=== PATIENT | male | born 1945 | race Hispanic/Latino ===

== ENCOUNTER 2018-07-03 11:14 | Inpatient (IN) | payer MEDICARE ==
[2018-07-03 11:16] VITALS: PULSE 96; BMI 24.5
[2018-07-03] MEDS ORDERED: ceFAZolin IV 1 gm in Dextrose 1 GM/50 ML BAG IV STA (12:12)
--- NOTE | 2018-07-03 12:27 | C.PDOC ---
History Of Present Illness 73-year-old male presents to the ED complaining of left-sided neck swelling that began 5 days ago. Patient states he was seen by PMD on Friday and prescribed antibiotics, with minimal improvement. The swollen area has progressively grown in size, is red, and began draining pus last night. Patient went back to his doctor today and was referred to Dr. Haque's office. Dr. Haque then tried to drain the area, but patient states he was referred to the ED due to severity of infection. He denies any fever, chills, or difficulty swallowing. Time Seen by Provider: 07/03/18 11:43 Chief Complaint (Nursing): Abnormal Skin Integrity History Per: Patient History/Exam Limitations: no limitations Onset/Duration Of Symptoms: Days Current Symptoms Are (Timing): Worse Quality Of Symptoms: Swollen, Draining Past Medical History Reviewed: Historical Data, Nursing Documentation, Vital Signs Vital Signs: Last Vital Signs Temp 98 F 07/03/18 14:06 Pulse 86 07/03/18 14:06 Resp 18 07/03/18 14:06 BP 126/73 07/03/18 14:06 Pulse Ox 98 07/03/18 14:06 - Medical History PMH: Arthritis, Atrial Fibrillation, Benign Prostatic Hyperplasia, Cardia Arrhythmia, CHF, HTN, Hypercholesterolemia, Hyperlipidemia Denies: Chronic Kidney Disease Surgical History: Coronary Stent, Endoscopy - [facility] Procedures EXCISION OF SCALP SKIN, EXTERNAL APPROACH, DIAGNOSTIC (11/13/15) EXCISION OF STOMACH, ENDO, DIAGN (06/03/16) ULTRASONOGRAPHY OF RIGHT AND LEFT HEART, TRANSESOPHAGEAL (01/20/17) Family History: States: Unknown Family Hx - Social History Hx Alcohol Use: No Hx Substance Use: No - Immunization History Hx Tetanus Toxoid Vaccination: No Hx Influenza Vaccination: Yes Hx Pneumococcal Vaccination: No Review Of Systems Except As Marked, All Systems Reviewed And Found Negative. Constitutional: Negative for: Fever, Chills ENT: Negative for: Throat Pain, Throat Swelling, Other (difficulty swallowing) Cardiovascular: Negative for: Chest Pain Respiratory: Negative for: Cough, Shortness of Breath Skin: Positive for: Other (red, swollen area to left side of neck, + draining pus) Neurological: Negative for: Weakness, Numbness, Headache Physical Exam - Physical Exam Appears: Non-toxic, No Acute Distress Skin: Warm, Dry Head: Atraumatic, Normacephalic Eye(s): bilateral: Normal Inspection Nose: Normal, No Flaring, No Discharge Oral Mucosa: Moist Tongue: No Normal Appearing, No Swelling Lips: Normal Appearing, No Swelling Teeth: Dentures Throat: Normal, No Erythema, No Exudate, No Drooling, No Mass Neck: Trachea Midline, Supple, Other (6 x 4 cm erythematous fluctuant mass with surrounding erythema to the left lateral neck, with some purulent drainage) Chest: Symmetrical Cardiovascular: Rhythm Regular, No Murmur Respiratory: Normal Breath Sounds, No Rales, No Rhonchi, No Wheezing Extremity: Bilateral: Atraumatic, Normal Color And Temperature, Normal ROM Pulses: Left Dorsalis Pedis: Normal, Right Dorsalis Pedis: Normal Neurological/Psych: Oriented x3, Normal Speech, Normal Cranial Nerves Gait: Steady ED Course And Treatment - Laboratory Results Result Diagrams: 07/03/18 12:41 07/03/18 12:41 Lab Interpretation: No Acute Changes O2 Sat by Pulse Oximetry: 98 (room air) Pulse Ox Interpretation: Normal Medical Decision Making Medical Decision Making: Impression: Abscess to left neck, draining 12:08pm Case discussed with Dr. Haque, who recommends labs, IV antibiotics, and admitting patient with ENT consult. He does not recommend CT at this time. Plan: --CMP --CBC --UA --Blood culture --Wound culture --1 gm IV Ancef Progress/Updates: 122 Spoke with hospitalist to admit patient for IV antibiotics. Disposition - Disposition Disposition: HOSPITALIZED Disposition Time: 13:23 Condition: STABLE - POA Present On Arrival: None - Clinical Impression Clinical Impression: Cellulitis and abscess of neck - PA / CADDY MASTER / Resident Statement MD/DO has reviewed & agrees with the documentation as recorded. - Scribe Statement The provider has reviewed the documentation as recorded by the Scribe (Tess Miguel) All medical record entries made by the Scribe were at my direction and personally dictated by me. I have reviewed the chart and agree that the record accurately reflects my personal performance of the history, physical exam, medical decision making, and the department course for this patient. I have also personally directed, reviewed, and agree with the discharge instructions and disposition. Decision To Admit - Pt Status Changed To: Hospital Disposition Of: Inpatient - Admit Certification Admit to Inpatient:: After my assessment, the patient will require hospitalization for at least two midnights. This is because of the severity of symptoms shown, intensity of services needed, and/or the medical risk in this patient being treated as an outpatient. - InPatient: Physician Admission Certification: I certify that this patient requires 2 or more midnights of care for the following reason:: Patient with progressively worsening neck abcess and cellulitis, failed outpatient antibotics. Patient will require IV antibiotics and also need drainage. ENT consult - . Bed Request Type: Regular Admitting Physician: Jonny Beyer Patient Diagnosis: Cellulitis and abscess of neck
[2018-07-03 12:51] LABS: BASO # 0.1 K/uL (0.0-0.2); BASO % 1.1 % (0.0-2.0); EOS # 0.2 K/uL (0.0-0.7); LYMPH # 0.9 K/uL (1.0-4.3); MEAN CORPUSCULAR HEMOGLOBIN 34.5 pg (27.0-31.0); MEAN CORPUSCULAR HGB CONC 33.9 g/dL (33.0-37.0); MEAN PLATELET VOLUME 8.9 fL (7.2-11.7); MONO # 0.4 K/uL (0.0-0.8); MONO % 8.5 % (0.0-10.0); NEUT # 3.6 K/uL (1.8-7.0); NEUT % 70.4 % (50.0-75.0); NRBC % 0.1 % (0.0-2.0); RBC 3.19 Mil/uL (4.40-5.90); RED CELL DISTRIBUTION WIDTH 14.3 % (11.5-14.5); WHITE BLOOD COUNT 5.1 K/uL (4.8-10.8)
[2018-07-03 12:52] LABS: MEAN CELL VOLUME 101.8 fL (80.0-94.0)
[2018-07-03 13:05] LABS: ALB/GLOB RATIO 1.1 (1.0-2.1); ALBUMIN 3.6 g/dL (3.5-5.0); CALCIUM 8.7 mg/dl (8.6-10.4)
[2018-07-03] MEDS ORDERED: ceFAZolin 1 gm in NS 1 GM/100 ML BAG IVPB ONE (13:11)
[2018-07-03 13:22] LABS: URINE BILIRUBIN NEGATIVE (NEGATIVE); URINE BLOOD NEGATIVE (NEGATIVE); URINE CLARITY Clear (Clear); URINE COLOR Yellow (YELLOW); URINE GLUCOSE (UA) NORMAL (Normal); URINE LEUKOCYTE ESTERASE NEG Leu/uL (Negative); URINE PROTEIN 2+ mg/dL (NEGATIVE); URINE UROBILINOGEN NORMAL mg/dL (0.2-1.0)
[2018-07-03] MEDS ORDERED: Potassium Chloride 20 mEq ER Tab PO STA (13:22)
[2018-07-03] MEDS ORDERED: Potassium Chloride 20 mEq ER Tab PO ONE (13:47)
--- NOTE | 2018-07-03 14:48 | CP.PCM.HP ---
History of Present Illness - History of Present Illness History of Present Illness: Patient seen and examined in Room 365B at approximately 14:30PM . Patient is a DNR/DNI status at this time. Patient does not have an official advanced directive. His emergency contact is his sister Heidi Morrison. She can be reached at [phone]. CC: Neck abscess HPI: 73 year old male with past medical history significant for atrial fibrillation, CAD s/p stent, HTN, HDL and thyroid disease presents with complaints of neck abscess. Patient states that his nephew's dog leaped upon him last Fri. At the time, patient did not realize that he had been scratched. Patient states that he then noticed a swelling on the left side of his neck five days ago. He states that he went to see his medical doctor the following day and was put on antibiotics. Patient is not entirely sure of the antibiotics ' name however so he suspects that it may have been ampicillin. Patient states that he was experiencing neck pain for two days afterwards. He also admits to some drainage of the affected area. Patient states that he was asked to continue the antibiotics course through today and then follow up with ENT. Patient states that he went to the ENT Dr. Haque today, who attempted to nahomi the affected area. Patient states that this was unsuccessful and was then asked to go to the emergency room. Currently, patient denies subjective fevers or chills, nausea, vomiting, diarrhea constipation, new onset dysphagia, or dyspnea at this time. 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 Caty Sainz Present on Admission - Present on Admission Any Indicators Present on Admission: No Review of Systems - Constitutional Constitutional: absent: Chills, Headache, Weight Loss, Weakness - EENT Eyes: absent: Blurred Vision, Pain Nose/Mouth/Throat: Nasal Congestion, Neck Mass (abscess). absent: Nasal Discharge, Sore Throat - Cardiovascular Cardiovascular: absent: Chest Pain, Chest Pain at Rest, Dyspnea - Respiratory Respiratory: absent: Cough, Dyspnea, Dyspnea on Exertion - Gastrointestinal Gastrointestinal: absent: Nausea, Vomiting - Musculoskeletal Musculoskeletal: absent: Back Pain - Integumentary Integumentary: Dry Skin, Swelling. absent: Skin Pain - Neurological Neurological: absent: Weakness - Psychiatric Psychiatric: absent: Anxiety - Endocrine Endocrine: absent: Fatigue, Heat Intolorance, Palpitations Past Patient History - Infectious Disease Hx of Infectious Diseases: None - Past Medical History & Family History Past Medical History?: Yes - Past Social History Smoking Status: Never Smoked Alcohol: Occasional Drugs: Denies Home Situation {Lives}: With Family (Sister) - CARDIAC Hx Atrial Fibrillation: Yes Hx Cardia Arrhythmia: Yes Hx Congestive Heart Failure: Yes Hx Hypercholesterolemia: Yes Hx Hypertension: Yes - NEUROLOGICAL Hx Neurological Disorder: No - HEENT Hx HEENT Problems: No (DYSPHAGIA) - RENAL Hx Chronic Kidney Disease: No - ENDOCRINE/METABOLIC Hx Endocrine Disorders: No - HEMATOLOGICAL/ONCOLOGICAL Hx Blood Transfusions: No Hx Cancer: Yes (parotid cancer,) - INTEGUMENTARY Hx Dermatological Problems: Yes Hx Basil Cell: Yes Hx Squamous Cell: Yes Other/Comment: hx skin cancer unsure what type , multiple scabs noted on scalp, scars noted l wrist ,Rhand. - MUSCULOSKELETAL/RHEUMATOLOGICAL Hx Arthritis: Yes - GASTROINTESTINAL Hx Gastrointestinal Disorders: Yes HX Swallowing Problems: Yes - GENITOURINARY/GYNECOLOGICAL Hx Genitourinary Disorders: Yes Hx Prostate Problems: Yes - PSYCHIATRIC Hx Substance Use: No - SURGICAL HISTORY Hx Coronary Stent: Yes - ANESTHESIA Hx Anesthesia: Yes Hx Anesthesia Reactions: No Meds Allergies/Adverse Reactions: Allergies Allergy/AdvReac Type Severity Reaction Status Date / Time No Known Allergies Allergy Verified 01/20/17 14:31 Physical Exam - Constitutional Appears: Non-toxic, No Acute Distress - Head Exam Head Exam: ATRAUMATIC, NORMAL INSPECTION, NORMOCEPHALIC - Eye Exam Eye Exam: EOMI, Normal appearance, PERRL Pupil Exam: NORMAL ACCOMODATION - ENT Exam ENT Exam: Mucous Membranes Moist - Neck Exam Neck exam: Positive for: Full Rom - Respiratory Exam Respiratory Exam: NORMAL BREATHING PATTERN. absent: Wheezes - Cardiovascular Exam Cardiovascular Exam: +S1, +S2 - GI/Abdominal Exam GI & Abdominal Exam: Normal Bowel Sounds, Soft. absent: Firm, Guarding, Tenderness - Extremities Exam Extremities exam: Positive for: full ROM, normal capillary refill, pedal pulses present. Negative for: calf tenderness, pedal edema, tenderness - Back Exam Back exam: FULL ROM - Neurological Exam Neurological exam: Alert, CN II-XII Intact, Oriented x3 - Psychiatric Exam Psychiatric exam: Normal Affect, Normal Mood - Skin Skin Exam: Dry, Intact, Warm - Expanded Skin Exam Expanded Type of lesion: Abscess Distribution of rash: Neck Description of Rash: Crusting, Erythematous, Indurated, Tenderness Results - Vital Signs Recent Vital Signs: Last Vital Signs Temp 98 F 07/03/18 14:06 Pulse 86 07/03/18 14:06 Resp 18 07/03/18 14:06 BP 126/73 07/03/18 14:06 Pulse Ox 98 07/03/18 14:06 - Labs Result Diagrams: 07/03/18 12:41 07/03/18 12:41 Labs: Laboratory Results - last 24 hr 07/03/18 07/03/18 07/03/18 12:41 12:41 13:11 WBC 5.1 RBC 3.19 L Hgb 11.0 L Hct 32.4 L MCV 101.8 H D MCH 34.5 H MCHC 33.9 RDW 14.3 Plt Count 153 MPV 8.9 Neut % (Auto) 70.4 Lymph % (Auto) 17.0 L Kerr % (Auto) 8.5 Eos % (Auto) 3.0 Baso % (Auto) 1.1 Neut # (Auto) 3.6 Lymph # (Auto) 0.9 L Kerr # (Auto) 0.4 Eos # (Auto) 0.2 Baso # (Auto) 0.1 Sodium 142 Potassium 3.4 L Chloride 100 Carbon Dioxide 31 H Anion Gap 15 BUN 25 H Creatinine 1.7 H Est GFR ( Amer) 48 Est GFR (Non-Af Amer) 40 Random Glucose 95 Calcium 8.7 Total Bilirubin 0.8 AST 61 H ALT 46 Alkaline Phosphatase 247 H D Total Protein 7.1 Albumin 3.6 Globulin 3.4 Albumin/Globulin Ratio 1.1 Urine Color Yellow Urine Clarity Clear Urine pH 6.0 Ur Specific [place] 1.014 Urine Protein 2+ H Urine Glucose (UA) Normal Urine Ketones Negative Urine Blood Negative Urine Nitrate Negative Urine Bilirubin Negative Urine Urobilinogen Normal Ur Leukocyte Esterase Neg Urine WBC (Auto) 1 Urine RBC (Auto) 1 Assessment & Plan (1) Cellulitis and abscess of neck Assessment and Plan: Given 1 mg Cefazolin in the ER. Started on Vanc 1g Q24 daily and Zosyn 2.25 g Q6 ALEXIS - (renally dosed)- Started 07/03 On Bacid Started 07/03 On N/S @ 50 mls/hr No leukocytois noted at the moment Failed outpatient PO therapy F/U Dr. Haque recommendations Status: Acute (2) Atrial fibrillation Assessment and Plan: Stable at this time. Well aware that patient has a cardiac history- although it is stable at this time and thus will admit to med-surg. Monitor. On Cardizem and Xarelto. Patient normally takes home dose of 20 mg Xarelto. This dosage was to 10 mg in light of pharmacologic reaction . Cardizem increases blood levels of Xarelto. Patient has been stable on this regiment and thus will continue at a decreased dose. Will need to follow up with ENT about holding Xarelto before any anticipated procedure. Status: Chronic (3) Coronary artery disease Assessment and Plan: Stable On Crestor 20 mg PO HS ASA 81 mg PO daily On Lopressor 50 mg PO BID Status: Chronic (4) RACHID (acute kidney injury) Assessment and Plan: Elevated Cr 1.7 up from baseline No other prior history- May be dehydrated. Start NS @ 75 mls/hr Will monitor Status: Acute (5) HTN (hypertension) Assessment and Plan: Stable at this time. On Lopressor 50 mg PO BID and Cardizem 360 mg PO daily Monitor Status: Chronic (6) Hyperlipidemia Assessment and Plan: On Crestor 20 mg PO HS and ASA 81 mg as stated above Monitor Status: Chronic (7) Thyroid disease Assessment and Plan: Not currently on any maintenance medications F/U TSH and Free T4 this time Monitor Status: Chronic (8) Prophylactic measure Assessment and Plan: SCDs On Xarelto- Will have to figure out when to hold prior to any anticipated procedures. F/.U with ENT. Status: Acute
[2018-07-03] MEDS ORDERED: Sodium Chloride 0.9% 1,000 ML IV SCH (15:00)
[2018-07-03] MEDS ORDERED: Vancomycin 1 gm/NS 200 ml 1 GM/200 ML BAG IVPB SCH (16:00)
[2018-07-03 16:09] VITALS: RESP 20
[2018-07-03] MEDS: Sodium Chloride 0.9% 1,000 ML IV SCH (17:14)
[2018-07-03] MEDS: Piperacill/Tazo 2.25gm in Dex 2.25 GM/50 ML BAG IVPB SCH (17:30)
[2018-07-03] MEDS: Lactobacillus Acidophilus 500 MU Cap PO SCH (18:10)
[2018-07-04] MEDS: Piperacill/Tazo 2.25gm in Dex 2.25 GM/50 ML BAG IVPB SCH ×3 (05:20→12:38)
[2018-07-04] MEDS: Sodium Chloride 0.9% 1,000 ML IV SCH ×3 (06:00→21:09)
--- NOTE | 2018-07-04 08:13 | CP.PCM.PN ---
Addendum entered and electronically signed by Sherita Sharma DO, DO 14:18: IV antibiotics changed to clindamycin 600mg IVPB q8h. CT soft tissue of neck canceled due to superficial nature of abscess. Original Note: <Sherita Sharma DO - Last Filed: 07/04/18 12:08> Subjective - Date & Time of Evaluation Date of Evaluation: 07/04/18 Time of Evaluation: 08:12 - Subjective Subjective: PGy3 Medicine progress note for Dr. Sainz's service Patient seen and examined. Patient with complaint of posterior nasal drip and congestion. Patient denies fever, chills, shortness of breath. Patient states he lives at home with his sister and denies needing much assistance at home. Objective - Vital Signs/Intake and Output Vital Signs (last 24 hours): Temp Pulse Resp BP Pulse Ox 97.7 F 53 L 20 140/78 95 07/04/18 05:30 07/04/18 05:30 07/04/18 05:30 07/04/18 05:30 07/04/18 05:30 Intake and Output: 07/04/18 07/04/18 06:59 18:59 Intake Total 775 Output Total 650 Balance 125 - Medications Medications: Current Medications Aspirin (Ecotrin) 81 mg PO DAILY ALEXIS Diltiazem HCl (Cardizem Cd) 360 mg PO DAILY ALEXIS Fluticasone Propionate (Flonase) 1 spr JOSE DAILY ALEXIS Piperacillin Sod/Tazobactam Sod (Zosyn 2.25 Gm Iv Premix) 2.25 gm in 50 mls @ 100 mls/hr IVPB Q6H ALEXIS PRN Reason: Protocol Last Admin: 07/04/18 05:20 Dose: 100 mls/hr Vancomycin/Sodium Chloride (Vancomycin 1 Gm/Ns 200 Ml) 1 gm in 200 mls @ 133.333 mls/hr IVPB Q24H ALEXIS PRN Reason: Protocol Stop: 07/08/18 16:01 Last Admin: 07/03/18 18:00 Dose: 133.333 mls/hr Sodium Chloride (Sodium Chloride 0.9%) 1,000 mls @ 75 mls/hr IV .[id number] [facility] Last Admin: 07/03/18 17:14 Dose: 75 mls/hr Lactobacillus Acidophilus (Bacid Acidophilus) 1 cap PO BID [facility] Last Admin: 07/03/18 18:10 Dose: 1 cap Metoprolol Tartrate (Lopressor) 50 mg PO BID [facility] Last Admin: 07/03/18 17:15 Dose: 50 mg Rivaroxaban (Xarelto) 10 mg PO DAILY [facility] Rosuvastatin Calcium (Crestor) 20 mg PO HS [facility] Last Admin: 07/03/18 21:09 Dose: 20 mg - Labs Labs: 07/03/18 12:41 07/03/18 12:41 - Constitutional Appears: Chronically Ill - Head Exam Additional comments: 10x6cm lipoma right posterior occiptal-parietal region 2 smaller lipomas measuring 2x1 cm in left parietal region - Eye Exam Eye Exam: EOMI - ENT Exam ENT Exam: Mucous Membranes Moist Additional comments: post nasal drip present - Neck Exam Additional comments: left sided 10 x 6 cm indurated and erythematous abscess with superficial skin crusting - Respiratory Exam Respiratory Exam: Clear to Ausculation Bilateral - Cardiovascular Exam Cardiovascular Exam: +S1, +S2 - GI/Abdominal Exam GI & Abdominal Exam: Soft, Normal Bowel Sounds. absent: Tenderness - Extremities Exam Extremities Exam: absent: Pedal Edema Additional comments: thickened toenails bilaterally with absence of left second toenail - Neurological Exam Neurological Exam: Alert, Awake - Psychiatric Exam Psychiatric exam: Normal Affect - Skin Skin Exam: Dry, Warm Assessment and Plan - Assessment and Plan (Free Text) Assessment: (1) Cellulitis and abscess of neck Assessment and Plan: Given 1 mg Cefazolin in the ER. Started on Vanc 1g Q24 daily and Zosyn 2.25 g Q6 ALEXIS - (renally dosed)- Started 07/03 On Bacid Started 07/03 On N/S @ 75 mls/hr No leukocytois noted at the moment, afebrile Failed outpatient PO therapy Will check CT soft tissue of neck Per Dr. Haque, patient will require a few days of IV antibiotics and there is no plan for immediate surgical intervention Status: Acute (2) Atrial fibrillation Assessment and Plan: Stable at this time. patient has a cardiac history- although it is stable at this time and thus will admit to med-surg. Monitor. On Cardizem and Xarelto. Patient normally takes home dose of 20 mg Xarelto. This dosage was to 10 mg in light of pharmacologic reaction . Cardizem increases blood levels of Xarelto. Patient has been stable on this regimen and thus will continue at a decreased dose. Status: Chronic (3) Coronary artery disease Assessment and Plan: Stable On Crestor 20 mg PO HS ASA 81 mg PO daily On Lopressor 50 mg PO BID Status: Chronic (4) RACHID (acute kidney injury) Assessment and Plan: Elevated Cr 1.7 up from baseline on admission, now 1.4 after receiving IV fluids No other prior history- May be dehydrated. continue NS @ 75 mls/hr Will monitor Status: Acute (5) HTN (hypertension) Assessment and Plan: Stable at this time. On Lopressor 50 mg PO BID and Cardizem 360 mg PO daily Monitor Status: Chronic (6) Hyperlipidemia Assessment and Plan: On Crestor 20 mg PO HS and ASA 81 mg as stated above Monitor Status: Chronic (7) Thyroid disease Assessment and Plan: Not currently on any maintenance medications TSH and Free T4 in normal range Monitor Status: Chronic (8) Prophylactic measure Assessment and Plan: SCDs On Xarelto <Alex Sainz - Last Filed: 07/04/18 16:15> Objective - Vital Signs/Intake and Output Vital Signs (last 24 hours): Temp Pulse Resp BP Pulse Ox 98.8 F 55 L 20 155/74 H 94 L 07/04/18 08:21 07/04/18 08:21 07/04/18 08:21 07/04/18 08:21 07/04/18 08:21 Intake and Output: 07/04/18 07/04/18 06:59 18:59 Intake Total 775 Output Total 650 Balance 125 - Medications Medications: Current Medications Aspirin (Ecotrin) 81 mg PO DAILY [facility] Last Admin: 07/04/18 10:13 Dose: 81 mg Diltiazem HCl (Cardizem Cd) 360 mg PO DAILY [facility] Last Admin: 07/04/18 10:12 Dose: 360 mg Fluticasone Propionate (Flonase) 1 spr JOSE DAILY [facility] Last Admin: 07/04/18 10:13 Dose: 1 spray Sodium Chloride (Sodium Chloride 0.9%) 1,000 mls @ 75 mls/hr IV .[id number] [facility] Last Admin: 07/04/18 10:15 Dose: 75 mls/hr Clindamycin Phosphate 600 mg/ (Sodium Chloride) 54 mls @ 100 mls/hr IVPB Q8H [facility] PRN Reason: Protocol Last Admin: 07/04/18 13:43 Dose: 100 mls/hr Lactobacillus Acidophilus (Bacid Acidophilus) 1 cap PO BID [facility] Last Admin: 07/04/18 10:12 Dose: 1 cap Metoprolol Tartrate (Lopressor) 50 mg PO BID [facility] Last Admin: 07/04/18 10:13 Dose: 50 mg Rivaroxaban (Xarelto) 10 mg PO DAILY [facility] Last Admin: 07/04/18 10:12 Dose: 10 mg Rosuvastatin Calcium (Crestor) 20 mg PO HS [facility] Last Admin: 07/03/18 21:09 Dose: 20 mg - Labs Labs: 07/04/18 08:20 07/04/18 08:20 Attending/Attestation - Attestation I have personally seen and examined this patient.: Yes I have fully participated in the care of the patient.: Yes I have reviewed all pertinent clinical information, including history, physical exam and plan: Yes Notes (Text): 07/04/18 16:09 Patient was seen and examined with resident Dr. Zoey Sharma. Also on ROS: Last bowel movement was 07/03/18 prior to coming to hospital Nasal congestion with post nasal drip Also on Exam: Posterior pharynx was nonerythematous/without exudate however Post Nasal Drip noted Nasal Turbinates are edematous and erythematous NO cervical/supraclavicular/submandibular lyphadenopathy Area of 10 cm by 6 cm left lateral neck mass was demarcated with blue ink: area is erythematous, hard to palpation, with central ulceration, and warm Posterior Right Occipital soft 10 cm by 6 cm exophytic scalp mass and Left Parietal 2 cm by 1 cm exophytic scalp mass: likely Lipomas that patient stated had been present for 30 + years and that his PMD is aware Vancoymcin and Zosyn changed to Clindamycin [address] Q[address] Dr[address] Duran attempted again to aspirate fluid from the left sided mass which is likely an abscess but was not successful. NO CT Soft Tissue Neck was performed due to the superficial nature of the mass Dr. Duran recommends a few days of IV antibiotics and as long as erythema/ warmth decline, then he may be discharged on the PO Clindamycin and follow up with him as outpatient Alex J. Sainz, D.O.
[2018-07-04 08:43] LABS: EOS # 0.2 K/uL (0.0-0.7); HEMOGLOBIN 10.9 g/dL (12.0-18.0); LYMPH % 22.5 % (20.0-40.0); MEAN CELL VOLUME 101.1 fL (80.0-94.0); MEAN CORPUSCULAR HEMOGLOBIN 35.4 pg (27.0-31.0); MEAN PLATELET VOLUME 9.5 fL (7.2-11.7); MONO # 0.4 K/uL (0.0-0.8); MONO % 9.5 % (0.0-10.0); NEUT # 2.7 K/uL (1.8-7.0); NRBC % 0.1 % (0.0-2.0); RBC 3.08 Mil/uL (4.40-5.90); WHITE BLOOD COUNT 4.4 K/uL (4.8-10.8)
[2018-07-04 09:04] LABS: ALBUMIN 3.4 g/dL (3.5-5.0); ALT/SGPT 35 U/L (21-72); AST/SGOT 62 U/L (17-59); BLOOD UREA NITROGEN 18 mg/dL (9-20); CALCIUM 8.5 mg/dl (8.6-10.4); GFR AFRICAN-AMERICAN > 60; GFR NON-AFRICAN AMERICAN 50
[2018-07-04] MEDS: Lactobacillus Acidophilus 500 MU Cap PO SCH ×2 (10:12→17:45)
[2018-07-04] MEDS: diltiaZEM 180 mg/24 Hours CD Cap PO SCH (10:12)
[2018-07-04] MEDS: Fluticasone Nasal 50 mcg/Spray NAS SCH (10:13)
[2018-07-04] MEDS ORDERED: Potassium Chloride 20 mEq ER Tab PO ONE (15:00)
[2018-07-04] MEDS ORDERED: DiphenhydrAMINE 12.5 mg/5 ml LIQ UD (5 ml) PO ONE (20:36)
--- NOTE | 2018-07-04 21:03 | CON ---
Copied To: Syd Haque MD Attending MD: Syd Haque MD DATE: 07/04/2018 REASON FOR CONSULTATION: Neck cellulitis/abscess. HISTORY: This is a 73-year-old male who has had swelling and redness of the left side of the neck for a few days. The patient was placed on Augmentin as an outpatient, which he did not respond to, presented to my office yesterday. I explored the wound. There was a minimal amount of pus noted that was drained. He reported that there was pus coming out from before. The erythema is [id number] in intensity on the left side, constant. The patient reports that the pain that he had resolved after the pus was drained. The patient was instructed to go to the ER. He was then admitted and placed on IV antibiotics. There is no pain today, but the erythema has not improved much from yesterday. PAST MEDICAL HISTORY: As noted in the chart by me. MEDICATIONS: As noted in the chart by me. PHYSICAL EXAMINATION HEENT: Head atraumatic, normocephalic. FACE: Good facial movements bilaterally. CONSTITUTIONAL: Well developed and well nourished. COMMUNICATIONS: Communicates appropriately. EXTERNAL NOSE AND EARS: No masses, no lesions, no erythema, no edema. INTERNAL NOSE: Deviated septum. No masses, no lesions, no erythema, no edema. ORAL CAVITY AND OROPHARYNX: No masses, no lesions, no erythema, no edema. LIPS AND GUMS: No masses, no lesions, no erythema, no edema. NECK: There is erythema of the neck on the left side, superficial on the skin with edema where the pus collection was. LYMPH NODES: No lymphadenopathy of the neck. THYROID: No thyromegaly, no goiter. ASSESSMENT: 1. Neck cellulitis, superficial on the skin. 2. Deviated septum. 3. Abscess of the skin. This was drained. PLAN: Continue IV antibiotics. We will follow. Syd Haque MD
[2018-07-05] MEDS: Sodium Chloride 0.9% 1,000 ML IV SCH
[2018-07-05] MEDS ORDERED: guaiFENesin 100 mg/5 ml Syrup UD PO ONE (02:25)
[2018-07-05 09:24] LABS: BASO # 0.1 K/uL (0.0-0.2); BASO % 1.2 % (0.0-2.0); EOS # 0.2 K/uL (0.0-0.7); HEMOGLOBIN 10.7 g/dL (12.0-18.0); LYMPH # 0.9 K/uL (1.0-4.3); LYMPH % 19.6 % (20.0-40.0); MEAN CELL VOLUME 100.5 fL (80.0-94.0); MEAN CORPUSCULAR HGB CONC 34.8 g/dL (33.0-37.0); MEAN PLATELET VOLUME 9.3 fL (7.2-11.7); MONO # 0.4 K/uL (0.0-0.8); NEUT % 66.2 % (50.0-75.0); NRBC % 0.1 % (0.0-2.0); RBC 3.05 Mil/uL (4.40-5.90); RED CELL DISTRIBUTION WIDTH 13.8 % (11.5-14.5); WHITE BLOOD COUNT 4.6 K/uL (4.8-10.8)
[2018-07-05 09:31] LABS: ALB/GLOB RATIO 1.1 (1.0-2.1); ALBUMIN 3.3 g/dL (3.5-5.0); ALT/SGPT 42 U/L (21-72); AST/SGOT 45 U/L (17-59); BLOOD UREA NITROGEN 14 mg/dL (9-20); CALCIUM 7.9 mg/dl (8.6-10.4); GFR AFRICAN-AMERICAN > 60; GFR NON-AFRICAN AMERICAN > 60
[2018-07-05] MEDS ORDERED: Potassium Chloride 20 mEq ER Tab PO STA (10:00)
[2018-07-05] MEDS: Fluticasone Nasal 50 mcg/Spray NAS SCH (10:14)
[2018-07-05] MEDS: Lactobacillus Acidophilus 500 MU Cap PO SCH ×2 (10:14→19:04)
[2018-07-05] MEDS: diltiaZEM 180 mg/24 Hours CD Cap PO SCH (10:15)
--- NOTE | 2018-07-05 11:23 | CP.PCM.PN ---
Subjective - Date & Time of Evaluation Date of Evaluation: 07/05/18 Time of Evaluation: 10:00 - Subjective Subjective: Patient was seen and examined by me with the medical residents Patient did not report any acute events overnight. The area of his left neck is NOT tender at rest. He said there was some minimal drainage overnight but when I deliberate tried to push out some pus from the area this morning we did not illicit anything. The abx were changed to IV clindamycin. So far the culture is + for staph. He denied fevers, denied chills, denied headache, denied shortness of breath, denied palpitations, denied abdominal pain, At this moment ENT is waiting for abx before further decision. Holding off on CT scan at this moment. Objective - Vital Signs/Intake and Output Vital Signs (last 24 hours): Temp Pulse Resp BP Pulse Ox 98.9 F 56 L 20 160/76 H 95 07/05/18 08:00 07/05/18 08:00 07/05/18 08:00 07/05/18 08:00 07/05/18 08:00 Intake and Output: 07/05/18 07/05/18 06:59 18:59 Intake Total 925 Output Total 1100 Balance -175 - Medications Medications: Current Medications Aspirin (Ecotrin) 81 mg PO DAILY [facility] Last Admin: 07/05/18 10:14 Dose: 81 mg Diltiazem HCl (Cardizem Cd) 360 mg PO DAILY [facility] Last Admin: 07/05/18 10:15 Dose: 360 mg Fluticasone Propionate (Flonase) 1 spr JOSE DAILY [facility] Last Admin: 07/05/18 10:14 Dose: 1 spray Guaifenesin/Dextromethorphan (Robitussin Dm) 10 ml PO Q4H PRN PRN Reason: Cough and congestion Clindamycin Phosphate 600 mg/ (Sodium Chloride) 54 mls @ 100 mls/hr IVPB Q8H [facility] PRN Reason: Protocol Last Admin: 07/05/18 04:20 Dose: 100 mls/hr Lactobacillus Acidophilus (Bacid Acidophilus) 1 cap PO BID [facility] Last Admin: 07/05/18 10:14 Dose: 1 cap Metoprolol Tartrate (Lopressor) 50 mg PO BID [facility] Last Admin: 07/05/18 10:15 Dose: 50 mg Rivaroxaban (Xarelto) 10 mg PO DAILY [facility] Last Admin: 07/05/18 10:14 Dose: 10 mg Rosuvastatin Calcium (Crestor) 20 mg PO HS [facility] Last Admin: 07/04/18 21:09 Dose: 20 mg - Labs Labs: 07/05/18 09:05 07/05/18 08:58 - Constitutional Appears: Well, Non-toxic, No Acute Distress - Head Exam Additional comments: He has the large lump on the back/ocipital area of his head - non tender - he says he's had it for 40+ years and its fine - ENT Exam ENT Exam: Mucous Membranes Moist Additional comments: The large left sternoclediomastoid area abccess and cellulitis - I was not able to push out any puss today when I tried - Respiratory Exam Respiratory Exam: Clear to Ausculation Bilateral, NORMAL BREATHING PATTERN - Cardiovascular Exam Cardiovascular Exam: REGULAR RHYTHM - GI/Abdominal Exam GI & Abdominal Exam: Soft, Normal Bowel Sounds - Neurological Exam Neurological Exam: Alert, Awake, Oriented x3 - Skin Skin Exam: Pallor, Warm Assessment and Plan - Assessment and Plan (Free Text) Assessment: (1) Cellulitis and abscess of neck Assessment and Plan: 07/05: Abx were changed over to IV clindamycin TID. There was a + staph growth with good MEGHNA with the clindamycin We are going to stop the IVF today Holding off on CT soft tissue of neck for the time being Per Dr. Haque, patient will require a few days of IV antibiotics and there is no plan for immediate surgical intervention (2) Atrial fibrillation - controlled Assessment and Plan: 07/05: Has been rate controlled at this time. He is not complaiing of palpitations or shortness of breath. If he does go to the OR then we need to hold the Xarelto Stable at this time. patient has a cardiac history- although it is stable at this time and thus will admit to med-surg. Monitor. On Cardizem and Xarelto. Patient normally takes home dose of 20 mg Xarelto. This dosage was to 10 mg in light of pharmacologic reaction . Cardizem increases blood levels of Xarelto. Patient has been stable on this regimen and thus will continue at a decreased dose. (3) Coronary artery disease Assessment and Plan: Stable On Crestor 20 mg PO HS ASA 81 mg PO daily On Lopressor 50 mg PO BID (4) RACHID (acute kidney injury) Assessment and Plan: 07/05: The creatine decreased to 1.4 Elevated Cr 1.7 up from baseline on admission, now 1.4 after receiving IV fluids No other prior history- May be dehydrated. (5) HTN (hypertension) Assessment and Plan: 07/05 Stable at this time. On Lopressor 50 mg PO BID and Cardizem 360 mg PO daily Monitor (6) Hyperlipidemia Assessment and Plan: On Crestor 20 mg PO HS and ASA 81 mg as stated above Monitor Status: Chronic (7) Thyroid disease Assessment and Plan: Not currently on any maintenance medications TSH and Free T4 in normal range Monitor Status: Chronic (8) Prophylactic measure Assessment and Plan: SCDs On Xarelto
[2018-07-05] MEDS: guaiFENesin DM 200 mg-20 mg/10 ml UD PO PRN (17:22)
[2018-07-06 08:21] LABS: BASO # 0.1 K/uL (0.0-0.2); EOS # 0.2 K/uL (0.0-0.7); RED CELL DISTRIBUTION WIDTH 14.4 % (11.5-14.5)
[2018-07-06 08:25] LABS: BASO % 1.4 % (0.0-2.0); HEMOGLOBIN 11.3 g/dL (12.0-18.0); LYMPH # 1.5 K/uL (1.0-4.3); LYMPH % 25.7 % (20.0-40.0); MEAN CORPUSCULAR HEMOGLOBIN 35.1 pg (27.0-31.0); MEAN CORPUSCULAR HGB CONC 34.2 g/dL (33.0-37.0); MEAN PLATELET VOLUME 9.6 fL (7.2-11.7); MONO # 0.5 K/uL (0.0-0.8); MONO % 9.1 % (0.0-10.0); NEUT # 3.4 K/uL (1.8-7.0); NEUT % 59.8 % (50.0-75.0); NRBC % 0.2 % (0.0-2.0); RBC 3.21 Mil/uL (4.40-5.90); WHITE BLOOD COUNT 5.7 K/uL (4.8-10.8)
[2018-07-06 08:29] LABS: MEAN CELL VOLUME 102.9 fL (80.0-94.0)
--- NOTE | 2018-07-06 08:35 | CP.PCM.PN ---
Subjective - Date & Time of Evaluation Date of Evaluation: 07/06/18 Time of Evaluation: 08:34 - Subjective Subjective: no neck pain neck: decreased erythema and edema. decreased induration a/p: neck cellulitis improving ok to d/c home after 24 more hours of abx Objective - Vital Signs/Intake and Output Vital Signs (last 24 hours): Temp Pulse Resp BP Pulse Ox 98.4 F 60 20 162/68 H 96 07/06/18 08:25 07/06/18 08:25 07/06/18 08:25 07/06/18 08:25 07/06/18 08:25 Intake and Output: 07/06/18 07/06/18 06:59 18:59 Intake Total 410 Output Total 1000 Balance -590 - Medications Medications: Current Medications Aspirin (Ecotrin) 81 mg PO DAILY [facility] Last Admin: 07/05/18 10:14 Dose: 81 mg Diltiazem HCl (Cardizem Cd) 360 mg PO DAILY [facility] Last Admin: 07/05/18 10:15 Dose: 360 mg Diphenhydramine HCl (Benadryl) 25 mg PO ONCE PRN PRN Reason: Insomnia Last Admin: 07/06/18 00:42 Dose: 25 mg Fluticasone Propionate (Flonase) 1 spr JOSE DAILY [facility] Last Admin: 07/05/18 10:14 Dose: 1 spray Guaifenesin/Dextromethorphan (Robitussin Dm) 10 ml PO Q4H PRN PRN Reason: Cough and congestion Last Admin: 07/05/18 17:22 Dose: 10 ml Clindamycin Phosphate 600 mg/ (Sodium Chloride) 54 mls @ 100 mls/hr IVPB Q8H [facility] PRN Reason: Protocol Last Admin: 07/06/18 04:23 Dose: 100 mls/hr Lactobacillus Acidophilus (Bacid Acidophilus) 1 cap PO BID [facility] Last Admin: 07/05/18 19:04 Dose: 1 cap Metoprolol Tartrate (Lopressor) 50 mg PO BID [facility] Last Admin: 07/05/18 17:21 Dose: 50 mg Rivaroxaban (Xarelto) 10 mg PO DAILY [facility] Last Admin: 07/05/18 10:14 Dose: 10 mg Rosuvastatin Calcium (Crestor) 20 mg PO HS [facility] Last Admin: 07/05/18 21:03 Dose: 20 mg - Labs Labs: 07/06/18 08:08 07/05/18 08:58
[2018-07-06 08:36] LABS: ALB/GLOB RATIO 1.1 (1.0-2.1); ALBUMIN 3.6 g/dL (3.5-5.0); ALT/SGPT 43 U/L (21-72); AST/SGOT 57 U/L (17-59); BLOOD UREA NITROGEN 15 mg/dL (9-20); CALCIUM 8.3 mg/dl (8.6-10.4); GFR AFRICAN-AMERICAN > 60; GFR NON-AFRICAN AMERICAN 59
[2018-07-06] MEDS: diltiaZEM 180 mg/24 Hours CD Cap PO SCH (10:29)
[2018-07-06] MEDS: Lactobacillus Acidophilus 500 MU Cap PO SCH ×2 (10:30→17:04)
[2018-07-06] MEDS: guaiFENesin DM 200 mg-20 mg/10 ml UD PO PRN (10:31)
[2018-07-06] MEDS: Fluticasone Nasal 50 mcg/Spray NAS SCH (12:50)
--- NOTE | 2018-07-06 14:23 | CP.PCM.PN ---
<Brandon Kumar - Last Filed: 07/06/18 14:41> Subjective - Date & Time of Evaluation Date of Evaluation: 07/06/18 Time of Evaluation: 14:20 - Subjective Subjective: Pt seen and examined at bedside. Pt complains of persistent nasal congestion. Pt feels that the mucinex does not work for him. Pt denies any other acute events overnight. Pt denies cp, sob, f/c, n/v body aches, headaches. Objective - Vital Signs/Intake and Output Vital Signs (last 24 hours): Temp Pulse Resp BP Pulse Ox 98.4 F 60 20 162/68 H 96 07/06/18 08:25 07/06/18 08:25 07/06/18 08:25 07/06/18 08:25 07/06/18 08:25 Intake and Output: 07/06/18 07/06/18 06:59 18:59 Intake Total 410 Output Total 1000 Balance -590 - Medications Medications: Current Medications Aspirin (Ecotrin) 81 mg PO DAILY [facility] Last Admin: 07/06/18 10:29 Dose: 81 mg Diltiazem HCl (Cardizem Cd) 360 mg PO DAILY [facility] Last Admin: 07/06/18 10:29 Dose: 360 mg Diphenhydramine HCl (Benadryl) 25 mg PO ONCE PRN PRN Reason: Insomnia Last Admin: 07/06/18 00:42 Dose: 25 mg Fluticasone Propionate (Flonase) 1 spr JOSE DAILY [facility] Last Admin: 07/06/18 12:50 Dose: 1 spray Guaifenesin/Dextromethorphan (Robitussin Dm) 10 ml PO Q4H PRN PRN Reason: Cough and congestion Last Admin: 07/06/18 10:31 Dose: 10 ml Clindamycin Phosphate 600 mg/ (Sodium Chloride) 54 mls @ 100 mls/hr IVPB Q8H [facility] PRN Reason: Protocol Last Admin: 07/06/18 12:51 Dose: 100 mls/hr Lactobacillus Acidophilus (Bacid Acidophilus) 1 cap PO BID [facility] Last Admin: 07/06/18 10:30 Dose: 1 cap Metoprolol Tartrate (Lopressor) 50 mg PO BID [facility] Last Admin: 07/06/18 10:29 Dose: 50 mg Rivaroxaban (Xarelto) 10 mg PO DAILY [facility] Last Admin: 07/06/18 10:30 Dose: 10 mg Rosuvastatin Calcium (Crestor) 20 mg PO HS [facility] Last Admin: 07/05/18 21:03 Dose: 20 mg - Labs Labs: 07/06/18 08:08 07/06/18 08:08 Assessment and Plan - Assessment and Plan (Free Text) Assessment: Cellulitis and abscess of neck 07/05: Abx were changed over to IV clindamycin TID. There was a + staph growth with good MEGHNA with the clindamycin Holding off on CT soft tissue of neck for the time being Per Dr. Haque, patient to be d/c tomorrow after 24hrs of IV Abx Atrial fibrillation - controlled 07/05: Has been rate controlled at this time. He is not complaiing of palpitations or shortness of breath. If he does go to the OR then we need to hold the Xarelto Stable at this time. patient has a cardiac history- although it is stable at this time and thus will admit to med-surg. Monitor. On Cardizem and Xarelto. Patient normally takes home dose of 20 mg Xarelto. This dosage was to 10 mg in light of pharmacologic reaction . Cardizem increases blood levels of Xarelto. Patient has been stable on this regimen and thus will continue at a decreased dose. Coronary artery disease Stable On Crestor 20 mg PO HS ASA 81 mg PO daily On Lopressor 50 mg PO BID RACHID (acute kidney injury) 07/05: The creatine decreased to 1.4 Elevated Cr 1.7 up from baseline on admission, now 1.4 after receiving IV fluids No other prior history- May be dehydrated. HTN (hypertension) 07/05 Stable at this time. On Lopressor 50 mg PO BID and Cardizem 360 mg PO daily Monitor Hyperlipidemia On Crestor 20 mg PO HS and ASA 81 mg as stated above Monitor Status: Chronic Thyroid disease Not currently on any maintenance medications TSH and Free T4 in normal range Monitor Status: Chronic Prophylactic measure SCDs On Xarelto dispor: Pt to be d/c tmrw after 24hr of clinda <Alex Sainz - Last Filed: 07/06/18 17:54> Objective - Vital Signs/Intake and Output Vital Signs (last 24 hours): Temp Pulse Resp BP Pulse Ox 98.4 F 48 L 20 154/82 H 96 08/20/18 15:52 07/06/18 15:52 07/06/18 15:52 07/06/18 15:52 07/06/18 15:52 Intake and Output: 07/06/18 07/06/18 06:59 18:59 Intake Total 960 Output Total 1000 Balance -40 - Medications Medications: Current Medications Aspirin (Ecotrin) 81 mg PO DAILY [facility] Last Admin: 07/06/18 10:29 Dose: 81 mg Diltiazem HCl (Cardizem Cd) 360 mg PO DAILY [facility] Last Admin: 07/06/18 10:29 Dose: 360 mg Diphenhydramine HCl (Benadryl) 25 mg PO ONCE PRN PRN Reason: Insomnia Last Admin: 07/06/18 00:42 Dose: 25 mg Fluticasone Propionate (Flonase) 1 spr JOSE DAILY [facility] Last Admin: 07/06/18 12:50 Dose: 1 spray Guaifenesin/Dextromethorphan (Robitussin Dm) 10 ml PO Q4H PRN PRN Reason: Cough and congestion Last Admin: 07/06/18 10:31 Dose: 10 ml Clindamycin Phosphate 600 mg/ (Sodium Chloride) 54 mls @ 100 mls/hr IVPB Q8H [facility] PRN Reason: Protocol Last Admin: 07/06/18 12:51 Dose: 100 mls/hr Potassium Phosphate 15 mmole/ (Sodium Chloride) 255 mls @ 42.5 mls/hr IVPB ONCE ONE Stop: 07/06/18 21:59 Last Admin: 07/06/18 16:03 Dose: 42.5 mls/hr Lactobacillus Acidophilus (Bacid Acidophilus) 1 cap PO BID [facility] Last Admin: 07/06/18 17:04 Dose: 1 cap Metoprolol Tartrate (Lopressor) 50 mg PO BID [facility] Last Admin: 07/06/18 17:00 Dose: Not Given Rivaroxaban (Xarelto) 10 mg PO DAILY [facility] Last Admin: 07/06/18 10:30 Dose: 10 mg Rosuvastatin Calcium (Crestor) 20 mg PO HS [facility] Last Admin: 07/05/18 21:03 Dose: 20 mg - Labs Labs: 07/06/18 08:08 07/06/18 08:08 Attending/Attestation - Attestation I have personally seen and examined this patient.: Yes I have fully participated in the care of the patient.: Yes I have reviewed all pertinent clinical information, including history, physical exam and plan: Yes Notes (Text): 07/06/18 17:49 Patient was seen and examined at 3:15 PM 07/06/18 [id number] Also on ROS: Moving his bowels normally Nasal congestion with post nasal drip (does not feel that they are better however exam no longer reveals any PND in the pharynx) Also on Exam: Posterior pharynx was nonerythematous/without exudate and NO Post Nasal Drip noted Nasal Turbinates are NO longer edematous and erythematous NO cervical/supraclavicular/submandibular lyphadenopathy Area of 10 cm by 6 cm left lateral neck mass was demarcated with blue ink: area is erythematous, hard to palpation, with central ulceration, and decreased warmth Posterior Right Occipital soft 10 cm by 6 cm exophytic scalp mass and Left Parietal 2 cm by 1 cm exophytic scalp mass: likely Lipomas that patient stated had been present for 30 + years and that his PMD is aware Continue the Flonase for the complaints of PND Potassium Phosphate 15 mmol IV x 1 dose for the low K and Phos Clindamycin 600 mg IV Q8H for another 24 hours as per my conversation with ENT Dr. Duran. 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 Haque as an outpatient Alex Sainz D.O.
[2018-07-06] MEDS ORDERED: Potassium Chloride 20 mEq ER Tab PO ONE (15:30)
[2018-07-06] MEDS ORDERED: Potassium Phosphate 15 MMOLE in Sodium Chloride 0.9% 250 ML IVPB ONE (16:00)
--- NOTE | 2018-07-07 07:58 | CP.PCM.PN ---
Subjective - Date & Time of Evaluation Date of Evaluation: 07/07/18 Time of Evaluation: 07:58 - Subjective Subjective: Medicine note for Hospitalist Service Pt seen and examined at bedside. Pt complains of watery eyes. Objective - Vital Signs/Intake and Output Vital Signs (last 24 hours): Temp Pulse Resp BP Pulse Ox 98.3 F 50 L 20 145/69 98 07/07/18 00:00 07/07/18 00:00 07/07/18 00:00 07/07/18 00:00 07/07/18 00:00 Intake and Output: 07/07/18 07/07/18 06:59 18:59 Intake Total 1300 Balance 1300 - Medications Medications: Current Medications Aspirin (Ecotrin) 81 mg PO DAILY [facility] Last Admin: 07/06/18 10:29 Dose: 81 mg Diltiazem HCl (Cardizem Cd) 360 mg PO DAILY [facility] Last Admin: 07/06/18 10:29 Dose: 360 mg Diphenhydramine HCl (Benadryl) 25 mg PO ONCE PRN PRN Reason: Insomnia Last Admin: 07/06/18 00:42 Dose: 25 mg Fluticasone Propionate (Flonase) 1 spr JOSE DAILY [facility] Last Admin: 07/06/18 12:50 Dose: 1 spray Guaifenesin/Dextromethorphan (Robitussin Dm) 10 ml PO Q4H PRN PRN Reason: Cough and congestion Last Admin: 07/06/18 10:31 Dose: 10 ml Clindamycin Phosphate 600 mg/ (Sodium Chloride) 54 mls @ 100 mls/hr IVPB Q8H [facility] PRN Reason: Protocol Last Admin: 07/07/18 04:50 Dose: 100 mls/hr Lactobacillus Acidophilus (Bacid Acidophilus) 1 cap PO BID [facility] Last Admin: 07/06/18 17:04 Dose: 1 cap Loratadine (Claritin) 10 mg PO ONCE ONE Stop: 07/07/18 08:01 Metoprolol Tartrate (Lopressor) 50 mg PO BID [facility] Last Admin: 07/06/18 17:00 Dose: Not Given Rivaroxaban (Xarelto) 10 mg PO DAILY [facility] Last Admin: 07/06/18 10:30 Dose: 10 mg Rosuvastatin Calcium (Crestor) 20 mg PO HS [facility] Last Admin: 07/06/18 22:00 Dose: 20 mg - Labs Labs: 07/06/18 08:08 07/06/18 08:08
[2018-07-07 08:12] LABS: BASO # 0.1 K/uL (0.0-0.2); EOS # 0.1 K/uL (0.0-0.7); EOS % 2.7 % (0.0-4.0); HEMOGLOBIN 11.1 g/dL (12.0-18.0); LYMPH # 1.3 K/uL (1.0-4.3); LYMPH % 24.2 % (20.0-40.0); MEAN CELL VOLUME 101.1 fL (80.0-94.0); MEAN CORPUSCULAR HEMOGLOBIN 34.6 pg (27.0-31.0); MEAN CORPUSCULAR HGB CONC 34.2 g/dL (33.0-37.0); MEAN PLATELET VOLUME 9.2 fL (7.2-11.7); MONO # 0.5 K/uL (0.0-0.8); NEUT # 3.5 K/uL (1.8-7.0); NEUT % 63.1 % (50.0-75.0); NRBC % 0.1 % (0.0-2.0); RBC 3.21 Mil/uL (4.40-5.90); RED CELL DISTRIBUTION WIDTH 14.2 % (11.5-14.5); WHITE BLOOD COUNT 5.5 K/uL (4.8-10.8)
[2018-07-07 08:29] VITALS: BP 145/74; PULSE 59; TEMP 98.2; O2SAT 95
--- NOTE | 2018-07-07 08:38 | CP.PCM.PN ---
Subjective - Date & Time of Evaluation Date of Evaluation: 07/07/18 Time of Evaluation: 08:37 - Subjective Subjective: no neck pain neck: decreased erythema and edema. decreased induration a/p: neck cellulitis improving ok to d/c home on po abx from ent standpoint Objective - Vital Signs/Intake and Output Vital Signs (last 24 hours): Temp Pulse Resp BP Pulse Ox 98.2 F 59 L 20 145/74 95 07/07/18 08:00 07/07/18 08:00 07/07/18 08:00 07/07/18 08:00 07/07/18 08:00 Intake and Output: 07/07/18 07/07/18 06:59 18:59 Intake Total 1300 Balance 1300 - Medications Medications: Current Medications Aspirin (Ecotrin) 81 mg PO DAILY [facility] Last Admin: 07/06/18 10:29 Dose: 81 mg Diltiazem HCl (Cardizem Cd) 360 mg PO DAILY [facility] Last Admin: 07/06/18 10:29 Dose: 360 mg Diphenhydramine HCl (Benadryl) 25 mg PO ONCE PRN PRN Reason: Insomnia Last Admin: 07/06/18 00:42 Dose: 25 mg Fluticasone Propionate (Flonase) 1 spr JOSE DAILY [facility] Last Admin: 07/06/18 12:50 Dose: 1 spray Guaifenesin/Dextromethorphan (Robitussin Dm) 10 ml PO Q4H PRN PRN Reason: Cough and congestion Last Admin: 07/06/18 10:31 Dose: 10 ml Clindamycin Phosphate 600 mg/ (Sodium Chloride) 54 mls @ 100 mls/hr IVPB Q8H [facility] PRN Reason: Protocol Last Admin: 07/07/18 04:50 Dose: 100 mls/hr Lactobacillus Acidophilus (Bacid Acidophilus) 1 cap PO BID [facility] Last Admin: 07/06/18 17:04 Dose: 1 cap Metoprolol Tartrate (Lopressor) 50 mg PO BID [facility] Last Admin: 07/06/18 17:00 Dose: Not Given Rivaroxaban (Xarelto) 10 mg PO DAILY [facility] Last Admin: 07/06/18 10:30 Dose: 10 mg Rosuvastatin Calcium (Crestor) 20 mg PO HS [facility] Last Admin: 07/06/18 22:00 Dose: 20 mg - Labs Labs: 07/07/18 07:52 07/06/18 08:08
[2018-07-07 08:50] LABS: ALB/GLOB RATIO 1.1 (1.0-2.1); ALBUMIN 3.3 g/dL (3.5-5.0); CALCIUM 8.3 mg/dl (8.6-10.4)
[2018-07-07] MEDS ORDERED: Potassium Chloride 20 mEq ER Tab PO SCH (10:00)
[2018-07-07] MEDS: diltiaZEM 180 mg/24 Hours CD Cap PO SCH (10:49)
[2018-07-07] MEDS: Fluticasone Nasal 50 mcg/Spray NAS SCH (10:50)
[2018-07-07] MEDS: Lactobacillus Acidophilus 500 MU Cap PO SCH (10:50)
--- NOTE | 2018-07-07 11:04 | CP.PCM.DIS ---
Addendum entered and electronically signed by Brandon Kumar DO 11:48: Clindamycin 300mg TID 10days Original Note: <Brandon Kumar - Last Filed: 07/07/18 11:18> Provider - Provider Date of Admission: 07/03/18 13:23 Attending physician: Jonny Beyer DO Time Spent in preparation of Discharge (in minutes): 45 Diagnosis - Discharge Diagnosis (1) Abscess of neck Status: Acute (2) RACHID (acute kidney injury) Status: Resolved (3) Thyroid disease Status: Chronic (4) Atrial fibrillation Status: Chronic (5) Coronary artery disease Status: Chronic (6) Hyperlipidemia Status: Chronic (7) Hypertension Status: Chronic Hospital Course - Lab Results Lab Results: Micro Results 07/03/18 12:00 Blood Blood Culture - Preliminary NO GROWTH AFTER 3 DAYS 07/03/18 12:30 Blood Blood Culture - Preliminary NO GROWTH AFTER 3 DAYS 07/03/18 13:11 Abscess - Neck Gram Stain - Final 07/03/18 13:11 Abscess - Neck Wound Culture - Final Methicillin Resistant S Aureus Most Recent Lab Values WBC 5.5 K/uL (4.8-10.8) 07/07/18 07:52 RBC 3.21 Mil/uL (4.40-5.90) L 07/07/18 07:52 Hgb 11.1 g/dL (12.0-18.0) L 07/07/18 07:52 Hct 32.5 % (35.0-51.0) L 07/07/18 07:52 MCV 101.1 fL (80.0-94.0) H 07/07/18 07:52 MCH 34.6 pg (27.0-31.0) H 07/07/18 07:52 MCHC 34.2 g/dL (33.0-37.0) 07/07/18 07:52 RDW 14.2 % (11.5-14.5) 07/07/18 07:52 Plt Count 162 K/uL (130-400) 07/07/18 07:52 MPV 9.2 fL (7.2-11.7) 07/07/18 07:52 Neut % (Auto) 63.1 % (50.0-75.0) 07/07/18 07:52 Lymph % (Auto) 24.2 % (20.0-40.0) 07/07/18 07:52 Bleckley % (Auto) 9.0 % (0.0-10.0) 07/07/18 07:52 Eos % (Auto) 2.7 % (0.0-4.0) 07/07/18 07:52 Baso % (Auto) 1.0 % (0.0-2.0) 07/07/18 07:52 Neut # (Auto) 3.5 K/uL (1.8-7.0) 07/07/18 07:52 Lymph # (Auto) 1.3 K/uL (1.0-4.3) 07/07/18 07:52 Bleckley # (Auto) 0.5 K/uL (0.0-0.8) 07/07/18 07:52 Eos # (Auto) 0.1 K/uL (0.0-0.7) 07/07/18 07:52 Baso # (Auto) 0.1 K/uL (0.0-0.2) 07/07/18 07:52 Sodium 141 mmol/L (132-148) 07/07/18 07:52 Potassium 3.3 mmol/L (3.6-5.2) L 07/07/18 07:52 Chloride 105 mmol/L (98-107) 07/07/18 07:52 Carbon Dioxide 27 mmol/L (22-30) 07/07/18 07:52 Anion Gap 12 (10-20) 07/07/18 07:52 BUN 19 mg/dL (9-20) 07/07/18 07:52 Creatinine 1.5 mg/dL (0.8-1.5) 07/07/18 07:52 Est GFR ( Amer) 56 07/07/18 07:52 Est GFR (Non-Af Amer) 46 07/07/18 07:52 Random Glucose 79 mg/dL (75-110) 07/07/18 07:52 Calcium 8.3 mg/dl (8.6-10.4) L 07/07/18 07:52 Phosphorus 2.9 mg/dL (2.5-4.5) 07/07/18 07:52 Magnesium 2.0 mg/dL (1.6-2.3) 07/07/18 07:52 Total Bilirubin 0.5 mg/dL (0.2-1.3) 07/07/18 07:52 AST 51 U/L (17-59) 07/07/18 07:52 ALT 44 U/L (21-72) 07/07/18 07:52 Alkaline Phosphatase 238 U/L (38-126) H 07/07/18 07:52 Total Protein 6.5 g/dL (6.3-8.3) 07/07/18 07:52 Albumin 3.3 g/dL (3.5-5.0) L 07/07/18 07:52 Globulin 3.1 gm/dL (2.2-3.9) 07/07/18 07:52 Albumin/Globulin Ratio 1.1 (1.0-2.1) 07/07/18 07:52 Free T4 1.37 ng/dL (0.78-2.19) 07/04/18 08:20 TSH 3rd Generation 0.89 mIU/L (0.46-4.68) 07/04/18 08:20 Urine Color Yellow (YELLOW) 07/03/18 13:11 Urine Clarity Clear (Clear) 07/03/18 13:11 Urine pH 6.0 (5.0-8.0) 07/03/18 13:11 Ur Specific Mcdonald 1.014 (1.003-1.030) 07/03/18 13:11 Urine Protein 2+ mg/dL (NEGATIVE) H 07/03/18 13:11 Urine Glucose (UA) Normal mg/dL (Normal) 07/03/18 13:11 Urine Ketones Negative mg/dL (NEGATIVE) 07/03/18 13:11 Urine Blood Negative (NEGATIVE) 07/03/18 13:11 Urine Nitrate Negative (NEGATIVE) 07/03/18 13:11 Urine Bilirubin Negative (NEGATIVE) 07/03/18 13:11 Urine Urobilinogen Normal mg/dL (0.2-1.0) 07/03/18 13:11 Ur Leukocyte Esterase Neg Macey/uL (Negative) 07/03/18 13:11 Urine WBC (Auto) 1 /hpf (0-5) 07/03/18 13:11 Urine RBC (Auto) 1 /hpf (0-3) 07/03/18 13:11 Influenza Typ A,B (EIA) Negative for flu a/b (NEGATIVE) 07/04/18 12:50 - Hospital Course Hospital Course: CC: Neck abscess HPI: 73 year old male with past medical history significant for atrial fibrillation, CAD s/p stent, HTN, HDL and thyroid disease presents with complaints of neck abscess. Patient states that his nephew's dog leaped upon him last Fri. At the time, patient did not realize that he had been scratched. Patient states that he then noticed a swelling on the left side of his neck five days ago. He states that he went to see his medical doctor the following day and was put on antibiotics. Patient is not entirely sure of the antibiotics ' name however so he suspects that it may have been ampicillin. Patient states that he was experiencing neck pain for two days afterwards. He also admits to some drainage of the affected area. Patient states that he was asked to continue the antibiotics course through today and then follow up with ENT. Patient states that he went to the ENT Dr. Haque today, who attempted to nahomi the affected area. Patient states that this was unsuccessful and was then asked to go to the emergency room. Currently, patient denies subjective fevers or chills, nausea, vomiting, diarrhea constipation, new onset dysphagia, or dyspnea at this time. 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 Caty Sainz HOSPITAL COURSE: Pt admitted for treatment of bacterial neck abscess from an animal scratch, sent in from ENT after seen in office. Wound cultures grew MRSA sensitive to clinda MEGHNA of 0.25. Pt was started on IV Clindamycin 600mg q8. Blood cultures show no growth 48hrs. Wound borders were demarcated and monitored. Lesion decreased in size substantially over hospital stay. ENT consulted and recommended d/c on Clinda PO 600mg TID for 10 days. please refer to [facility] [place] for full reports Instructions: Pt is to follow up with ENT within one week of discharge Pt is to complete antibiotic course as prescribed: Clindamycin 600mg 3x a day for 10days Pt is to take Florastor probiotic Daily for 30 days Pt is to eat a probiotic yogurt for 30 days If pt develops fevers or intense pain in the lesion area he is to seek medical attention immediately Take care and be well Sourav Kumar DO Discharge Exam - Head Exam Head Exam: ATRAUMATIC, NORMAL INSPECTION, NORMOCEPHALIC - Additional Findings Additional findings: - Constitutional Appears: Chronically Ill - Head Exam Additional comments: 10x6cm lipoma right posterior occiptal-parietal region 2 smaller lipomas measuring 2x1 cm in left parietal region - Eye Exam Eye Exam: EOMI - ENT Exam ENT Exam: Mucous Membranes Moist Additional comments: post nasal drip present - Neck Exam Additional comments: left sided 10 x 6 cm indurated and erythematous abscess with superficial skin crusting - Respiratory Exam Respiratory Exam: Clear to Ausculation Bilateral - Cardiovascular Exam Cardiovascular Exam: +S1, +S2 - GI/Abdominal Exam GI & Abdominal Exam: Soft, Normal Bowel Sounds. absent: Tenderness - Extremities Exam Extremities Exam: absent: Pedal Edema Additional comments: thickened toenails bilaterally with absence of left second toenail - Neurological Exam Neurological Exam: Alert, Awake - Psychiatric Exam Psychiatric exam: Normal Affect - Skin Skin Exam: Dry, Warm Discharge Plan - Discharge Medications Prescriptions: Aspirin [Ecotrin] 81 mg PO DAILY 30 Days #30 tabec Atorvastatin [Lipitor] 10 mg PO DAILY 30 Days #30 tab Clindamycin [Cleocin] 300 mg PO TID 10 Days #30 cap Cyanocobalamin [Vitamin B12 100 mcg Tab] 100 mcg PO DAILY 30 Days #30 tab diltiaZEM CD [Cardizem CD] 360 mg PO DAILY 30 Days #30 cap Fluticasone Propionate [Flonase] 1 spr JOSE DAILY #1 bottle Metoprolol Tartrate [Lopressor] 50 mg PO BID 30 Days #60 tab Rivaroxaban [Xarelto] 20 mg PO DAILY 30 Days #30 tab Saccharomyces Boulardi [Florastor] 250 mg PO DAILY #30 cap - Follow Up Plan Condition: STABLE Disposition: HOME/ ROUTINE Instructions: DASH Diet, Heart Failure, Adult (DC), High Blood Pressure (DC), Low Salt Diet Referrals: Syd Haque MD [Staff Provider] - <Jonny Beyer - Last Filed: 07/07/18 13:50> Provider - Provider Date of Admission: 07/03/18 13:23 Attending physician: Jonny Beyer DO Hospital Course - Lab Results Lab Results: Micro Results 07/03/18 12:00 Blood Blood Culture - Preliminary NO GROWTH AFTER 3 DAYS 07/03/18 12:30 Blood Blood Culture - Preliminary NO GROWTH AFTER 3 DAYS 07/03/18 13:11 Abscess - Neck Gram Stain - Final 07/03/18 13:11 Abscess - Neck Wound Culture - Final Methicillin Resistant S Aureus Most Recent Lab Values WBC 5.5 K/uL (4.8-10.8) 07/07/18 07:52 RBC 3.21 Mil/uL (4.40-5.90) L 07/07/18 07:52 Hgb 11.1 g/dL (12.0-18.0) L 07/07/18 07:52 Hct 32.5 % (35.0-51.0) L 07/07/18 07:52 MCV 101.1 fL (80.0-94.0) H 07/07/18 07:52 MCH 34.6 pg (27.0-31.0) H 07/07/18 07:52 MCHC 34.2 g/dL (33.0-37.0) 07/07/18 07:52 RDW 14.2 % (11.5-14.5) 07/07/18 07:52 Plt Count 162 K/uL (130-400) 07/07/18 07:52 MPV 9.2 fL (7.2-11.7) 07/07/18 07:52 Neut % (Auto) 63.1 % (50.0-75.0) 07/07/18 07:52 Lymph % (Auto) 24.2 % (20.0-40.0) 07/07/18 07:52 Bleckley % (Auto) 9.0 % (0.0-10.0) 07/07/18 07:52 Eos % (Auto) 2.7 % (0.0-4.0) 07/07/18 07:52 Baso % (Auto) 1.0 % (0.0-2.0) 07/07/18 07:52 Neut # (Auto) 3.5 K/uL (1.8-7.0) 07/07/18 07:52 Lymph # (Auto) 1.3 K/uL (1.0-4.3) 07/07/18 07:52 Bleckley # (Auto) 0.5 K/uL (0.0-0.8) 07/07/18 07:52 Eos # (Auto) 0.1 K/uL (0.0-0.7) 07/07/18 07:52 Baso # (Auto) 0.1 K/uL (0.0-0.2) 07/07/18 07:52 Sodium 141 mmol/L (132-148) 07/07/18 07:52 Potassium 3.3 mmol/L (3.6-5.2) L 07/07/18 07:52 Chloride 105 mmol/L (98-107) 07/07/18 07:52 Carbon Dioxide 27 mmol/L (22-30) 07/07/18 07:52 Anion Gap 12 (10-20) 07/07/18 07:52 BUN 19 mg/dL (9-20) 07/07/18 07:52 Creatinine 1.5 mg/dL (0.8-1.5) 07/07/18 07:52 Est GFR ( Amer) 56 07/07/18 07:52 Est GFR (Non-Af Amer) 46 07/07/18 07:52 Random Glucose 79 mg/dL (75-110) 07/07/18 07:52 Calcium 8.3 mg/dl (8.6-10.4) L 07/07/18 07:52 Phosphorus 2.9 mg/dL (2.5-4.5) 07/07/18 07:52 Magnesium 2.0 mg/dL (1.6-2.3) 07/07/18 07:52 Total Bilirubin 0.5 mg/dL (0.2-1.3) 07/07/18 07:52 AST 51 U/L (17-59) 07/07/18 07:52 ALT 44 U/L (21-72) 07/07/18 07:52 Alkaline Phosphatase 238 U/L (38-126) H 07/07/18 07:52 Total Protein 6.5 g/dL (6.3-8.3) 07/07/18 07:52 Albumin 3.3 g/dL (3.5-5.0) L 07/07/18 07:52 Globulin 3.1 gm/dL (2.2-3.9) 07/07/18 07:52 Albumin/Globulin Ratio 1.1 (1.0-2.1) 07/07/18 07:52 Free T4 1.37 ng/dL (0.78-2.19) 07/04/18 08:20 TSH 3rd Generation 0.89 mIU/L (0.46-4.68) 07/04/18 08:20 Urine Color Yellow (YELLOW) 07/03/18 13:11 Urine Clarity Clear (Clear) 07/03/18 13:11 Urine pH 6.0 (5.0-8.0) 07/03/18 13:11 Ur Specific Mcdonald 1.014 (1.003-1.030) 07/03/18 13:11 Urine Protein 2+ mg/dL (NEGATIVE) H 07/03/18 13:11 Urine Glucose (UA) Normal mg/dL (Normal) 07/03/18 13:11 Urine Ketones Negative mg/dL (NEGATIVE) 07/03/18 13:11 Urine Blood Negative (NEGATIVE) 07/03/18 13:11 Urine Nitrate Negative (NEGATIVE) 07/03/18 13:11 Urine Bilirubin Negative (NEGATIVE) 07/03/18 13:11 Urine Urobilinogen Normal mg/dL (0.2-1.0) 07/03/18 13:11 Ur Leukocyte Esterase Neg Macey/uL (Negative) 07/03/18 13:11 Urine WBC (Auto) 1 /hpf (0-5) 07/03/18 13:11 Urine RBC (Auto) 1 /hpf (0-3) 07/03/18 13:11 Influenza Typ A,B (EIA) Negative for flu a/b (NEGATIVE) 07/04/18 12:50 Attending/Attestation - Attestation I have personally seen and examined this patient.: Yes I have fully participated in the care of the patient.: Yes I have reviewed all pertinent clinical information, including history, physical exam and plan: Yes Notes (Text): 07/07/18 13:48 Medical attending: Patient was seen and examined by me. Agree with the above note by the resident The patient was not in any acute distress when we came and saw and examined and spoke with the patient. He did ok overnight The area on the left sternocledio mastoid area had decreased in erethma as well as decrease in the size of the swelling. He did not require surgery He has been on the IV clindamycin that has good sensitivity to the + staph growth. Jonny Beyer
== END 2018-07-07 17:14 | disposition home or self-care (01) | DRG 603 ==
LOC: C.ER 11:14 → C.3T 13:23
PROVIDERS: ADMIT Hospitalist; ATTEND Hospitalist
DX: L03.221 Cellulitis of neck (principal); N17.9 Acute kidney failure, unspecified; N40.0 Benign prostatic hyperplasia without lower urinary tract symptoms; Z66 Do not resuscitate; D17.0 Benign lipomatous neoplasm of skin and subcutaneous tissue of head, face and neck; B95.62 Methicillin resistant Staphylococcus aureus infection as the cause of diseases classified elsewhere; E78.00 Pure hypercholesterolemia, unspecified; I48.91 Unspecified atrial fibrillation; I25.10 Atherosclerotic heart disease of native coronary artery without angina pectoris; I11.0 Hypertensive heart disease with heart failure; L02.11 Cutaneous abscess of neck; J34.2 Deviated nasal septum; I50.9 Heart failure, unspecified; Z79.899 Other long term (current) drug therapy; Z82.49 Family history of ischemic heart disease and other diseases of the circulatory system; Z79.01 Long term (current) use of anticoagulants; Z85.818 Personal history of malignant neoplasm of other sites of lip, oral cavity, and pharynx; Z79.82 Long term (current) use of aspirin; Z85.828 Personal history of other malignant neoplasm of skin; Z95.5 Presence of coronary angioplasty implant and graft; E07.9 Disorder of thyroid, unspecified; E86.0 Dehydration

== ENCOUNTER 2018-11-23 09:32 | Inpatient (IN) | payer MEDICARE ==
[2018-11-23 09:32] VITALS: PULSE 96; BMI 24.5
[2018-11-23 11:11] LABS: BASO # 0.1 K/uL (0.0-0.2); BASO % 1.2 % (0.0-2.0); EOS # 0.2 K/uL (0.0-0.7); EOS % 4.1 % (0.0-4.0); HEMOGLOBIN 12.1 g/dL (12.0-18.0); LYMPH # 0.9 K/uL (1.0-4.3); MEAN CELL VOLUME 100.4 fL (80.0-94.0); MEAN CORPUSCULAR HEMOGLOBIN 34.1 pg (27.0-31.0); MEAN PLATELET VOLUME 9.9 fL (7.2-11.7); MONO # 0.5 K/uL (0.0-0.8); MONO % 9.6 % (0.0-10.0); NEUT # 3.2 K/uL (1.8-7.0); NEUT % 66.1 % (50.0-75.0); RBC 3.54 Mil/uL (4.40-5.90); RED CELL DISTRIBUTION WIDTH 15.1 % (11.5-14.5); WHITE BLOOD COUNT 4.9 K/uL (4.8-10.8)
[2018-11-23 11:18] LABS: URINE BILIRUBIN NEGATIVE (NEGATIVE); URINE BLOOD NEGATIVE (NEGATIVE); URINE CLARITY Clear (Clear); URINE COLOR Yellow (YELLOW); URINE GLUCOSE (UA) NORMAL (Normal); URINE LEUKOCYTE ESTERASE NEG Leu/uL (Negative); URINE PROTEIN 2+ mg/dL (NEGATIVE); URINE UROBILINOGEN NORMAL mg/dL (0.2-1.0)
[2018-11-23 11:27] LABS: ALB/GLOB RATIO 1.1 (1.0-2.1); ALBUMIN 3.9 g/dL (3.5-5.0); ALT/SGPT 56 U/L (21-72); AST/SGOT 82 U/L (17-59); BLOOD UREA NITROGEN 31 mg/dL (9-20); CALCIUM 8.7 mg/dl (8.6-10.4); GFR NON-AFRICAN AMERICAN 37
--- NOTE | 2018-11-23 11:45 | RAD ---
HISTORY: AMS COMPARISON: Chest x-ray performed 01/20/17 TECHNIQUE: Chest, one view. FINDINGS: Examination limited by habitus and hypoinflation. LUNGS: No focal consolidation. Please note that chest x-ray has limited sensitivity for the detection of pulmonary masses. PLEURA: No significant pleural effusion identified. No definite pneumothorax . CARDIOVASCULAR: Cardiomegaly. Atherosclerotic calcifications. OSSEOUS STRUCTURES: Degenerative changes. VISUALIZED UPPER ABDOMEN: Elevation of the right hemidiaphragm. OTHER FINDINGS: None. IMPRESSION: Cardiomegaly. Hypoinflation. Elevation of the right hemidiaphragm.
--- NOTE | 2018-11-23 12:07 | C.PDOC ---
History Of Present Illness 73 years old male with PMHx of HTN and hypercholesterolemia presents to ED for complaints of weakness of bilateral legs, shoulders, and neck with associated symptoms of tingling sensation in fingers and dizziness that began 3 days ago s/p tripped, fell, and bumped his head. Denies LOC, headache, nausea, vomiting, urinary symptoms, cough, fever, chills, abdominal pain, or shortness of breath. PMD: * Caty Herzog Phot[employer] Contact Printer: * Dr. Juanito Nayak Time Seen by Provider: 11/23/18 10:05 Chief Complaint (Nursing): Dizziness/Lightheaded History Per: Patient History/Exam Limitations: no limitations Onset/Duration Of Symptoms: Days (3) Current Symptoms Are (Timing): Still Present Associated Symptoms Preceding Syncopal Episode: No Predromal Symptoms (Sudden Onset) Seizure Or Post-ictal Symptoms: None Fall Associated With With Symptoms: Yes Recent travel outside of the [place]: No - Symptoms Of CVA Character Of Deficits: Arm: Weakness, Leg: Weakness Recent Aspirin Use: Unknown Current Coumadin Use?: Unknown Recent Head Trauma: No Past Medical History Reviewed: Historical Data, Nursing Documentation, Vital Signs Vital Signs: Last Vital Signs Temp 97.6 F 11/23/18 10:15 Pulse 62 11/23/18 10:15 Resp 26 H 11/23/18 10:15 BP 174/70 H 11/23/18 10:15 Pulse Ox 96 11/23/18 09:37 - Medical History PMH: Arthritis, Atrial Fibrillation, Benign Prostatic Hyperplasia, Cardia Arrhythmia, CHF, HTN, Hypercholesterolemia, Hyperlipidemia Denies: Chronic Kidney Disease Surgical History: Coronary Stent, Endoscopy - [facility] Procedures EXCISION OF SCALP SKIN, EXTERNAL APPROACH, DIAGNOSTIC (11/13/15) EXCISION OF STOMACH, ENDO, DIAGN (06/03/16) ULTRASONOGRAPHY OF RIGHT AND LEFT HEART, TRANSESOPHAGEAL (01/20/17) Family History: States: Unknown Family Hx - Social History Hx Alcohol Use: No Hx Substance Use: No - Immunization History Hx Tetanus Toxoid Vaccination: No Hx Influenza Vaccination: Yes Hx Pneumococcal Vaccination: No Review Of Systems Except As Marked, All Systems Reviewed And Found Negative. Neurological: Positive for: Weakness, Dizziness, Other (Tingling sensation of fingers ) Physical Exam - Physical Exam Appears: Non-toxic, No Acute Distress Skin: Normal Color, Warm, Dry, No Rash Head: Atraumatic, Normacephalic, Other (Scab over right side of forehead. Large fatty mass of right occipital parietal area ) Eye(s): bilateral: Normal Inspection, PERRL, EOMI Oral Mucosa: Moist Neck: Normal ROM, Supple Chest: Symmetrical, No Tenderness Cardiovascular: Rhythm Regular Respiratory: Normal Breath Sounds, No Rales, No Rhonchi, No Other Gastrointestinal/Abdominal: Bowel Sounds (Active ), Soft, No Tenderness, No G uarding, No Rebound Back: Normal Inspection, No CVA Tenderness Extremity: Normal ROM Extremity: Bilateral: Atraumatic, Normal Color And Temperature, Normal ROM Pulses: Left Radial: Normal, Right Radial: Normal Neurological/Psych: Oriented x3, Normal Speech, Normal Motor (5/5 strength ), Normal Sensation, Normal Reflexes, Other (No focal Deficits. GCS 15, CN 2-12 intact. GCS eye subscore is 4. GCS verbal subscore is 5. GCS motor subscore is 6. Pt's neuro exam is grossly normal. They have no pronator drift, demonstrate good finger to nose testing, grossly normal (5/5) strength in upper and lower extremities b/l, denies any sensation changes in extremities and does not demonstrate extinguishing of sensation; equal facial muscles including nasolbial folds without facial droop and reports facial sensation is equal bilaterally, tongue protrudes to midline. ) Gait: Unsteady ED Course And Treatment - Laboratory Results Result Diagrams: 11/27/18 07:16 11/27/18 07:16 Lab Results: Troponin I 0.0260 ng/mL (0.00-0.120) 11/23/18 11:00 Total Bilirubin 0.7 mg/dL (0.2-1.3) 11/23/18 11:00 AST 82 U/L (17-59) H D 11/23/18 11:00 ALT 56 U/L (21-72) 11/23/18 11:00 Alkaline Phosphatase 254 U/L (38-126) H 11/23/18 11:00 Total Protein 7.4 g/dL (6.3-8.3) 11/23/18 11:00 Albumin 3.9 g/dL (3.5-5.0) 11/23/18 11:00 Globulin 3.5 gm/dL (2.2-3.9) 11/23/18 11:00 Albumin/Globulin Ratio 1.1 (1.0-2.1) 11/23/18 11:00 Urine Color Yellow (YELLOW) 11/23/18 11:06 Urine Clarity Clear (Clear) 11/23/18 11:06 Urine pH 7.0 (5.0-8.0) 11/23/18 11:06 Ur Specific Marian[place] 1.010 (1.003-1.030) 11/23/18 11:06 Urine Protein 2+ mg/dL (NEGATIVE) H 11/23/18 11:06 Urine Glucose (UA) Normal mg/dL (Normal) 11/23/18 11:06 Urine Ketones Negative mg/dL (NEGATIVE) 11/23/18 11:06 Urine Blood Negative (NEGATIVE) 11/23/18 11:06 Urine Nitrate Negative (NEGATIVE) 11/23/18 11:06 Urine Bilirubin Negative (NEGATIVE) 11/23/18 11:06 Urine Urobilinogen Normal mg/dL (0.2-1.0) 11/23/18 11:06 Ur Leukocyte Esterase Neg Macey/uL (Negative) 11/23/18 11:06 Urine WBC (Auto) 1 /hpf (0-5) 11/23/18 11:06 Urine RBC (Auto) < 1 /hpf (0-3) 11/23/18 11:06 O2 Sat by Pulse Oximetry: 96 (RA) Pulse Ox Interpretation: Normal - Other Rad CXR X-Ray: Viewed By Me, Read By Radiologist Interpretation: HISTORY: AMS. COMPARISON: Chest x-ray performed 01/20/17. TECHNIQUE: Chest, one view. FINDINGS: Examination limited by habitus and hypoinflation. LUNGS: No focal consolidation. Please note that chest x-ray has limited sensitivity for the detection of pulmonary masses. PLEURA: No significant pleural effusion identified. No definite pneumothorax . CARDIOVASCULAR: Cardiomegaly. Atherosclerotic calcifications. OSSEOUS STRUCTURES: Degenerative changes. VISUALIZED UPPER ABDOMEN: Elevation of the right hemidiaphragm. OTHER FINDINGS: None. IMPRESSION: Cardiomegaly. Hypoinflation. Elevation of the right hemidiaphragm. - CT Scan/US Head CT Other Rad Studies (CT/US): Read By Radiologist, Radiology Report Reviewed CT/US Interpretation: Date of service: 11/23/2018. PROCEDURE: CT HEAD WITHOUT CONTRAST. HISTORY: AMS. COMPARISON: Noncontrast head CT performed 06/03/16. TECHNIQUE: Axial computed tomography images were obtained through the head/brain without intravenous contrast. Radiation dose: Total exam DLP = 1243.7 mGy-cm. This CT exam was performed using one or more of the following dose reduction techniques: Automated exposure control, adjustment of the mA and/or kV according to patient size, and/or use of iterative reconstruction technique. FINDINGS: Streak artifact obscures evaluation of the skull base. HEMORRHAGE: No intracranial hemorrhage. BRAIN: Diffuse atrophy with prominence of the ventricles and sulci noted. No mass effect or edema. Intracranial atherosclerosis. Scattered periventricular and subcortical white matter hypodensities, which are nonspecific, but often seen with chronic micro vascular ischemic disease. Please note that MRI with diffusion imaging is more sensitive in the detection of acute ischemic event. VENTRICLES: No hydrocephalus. CALVARIUM: Unremarkable. PARANASAL SINUSES: Unremarkable as visualized. No significant inflammatory changes. MASTOID AIR CELLS: Un remarkable as visualized. No inflammatory changes. OTHER FINDINGS: Multiple calcified subcutaneous scalp masses, possibly sebaceous cysts. Partially imaged right occipital mass has some cystic areas within it . Uncertain significance. IMPRESSION: Generalized atrophy. Nonspecific white matter changes. Multiple re-identified calcified subcutaneous scalp masses as described. Uncertain significance. Medical Decision Making Medical Decision Making: Plan: * Cardizem * Blood work * CXR * EKG * Urine culture * Urinalysis * CT Head EKG: * Normal sinus rhythm at 76 bpm * LVH * Normal QRS * Normal QT * LAD * No st elevations 14:50 Dr. Beyer accepted the patient for admission. Disposition Counseled Patient/Family Regarding: Studies Performed, Diagnosis - Disposition Disposition: HOSPITALIZED Disposition Time: 14:50 Condition: GOOD - POA Present On Arrival: None - Clinical Impression Clinical Impression: Dizziness, Hypokalemia, Renal insufficiency - Scribe Statement The provider has reviewed the documentation as recorded by the Kendrick Iqbal All medical record entries made by the Tovaibelio were at my direction and personally dictated by me. I have reviewed the chart and agree that the record accurately reflects my personal performance of the history, physical exam, medical decision making, and the department course for this patient. I have also personally directed, reviewed, and agree with the discharge instructions and disposition.
--- NOTE | 2018-11-23 12:20 | CT ---
Date of service: 11/23/2018 PROCEDURE: CT HEAD WITHOUT CONTRAST. HISTORY: AMS COMPARISON: Noncontrast head CT performed 06/03/16 TECHNIQUE: Axial computed tomography images were obtained through the head/brain without intravenous contrast. Radiation dose: Total exam DLP = 1243.7 mGy-cm. This CT exam was performed using one or more of the following dose reduction techniques: Automated exposure control, adjustment of the mA and/or kV according to patient size, and/or use of iterative reconstruction technique. FINDINGS: Streak artifact obscures evaluation of the skull base. HEMORRHAGE: No intracranial hemorrhage. BRAIN: Diffuse atrophy with prominence of the ventricles and sulci noted. No mass effect or edema. Intracranial atherosclerosis. Scattered periventricular and subcortical white matter hypodensities, which are nonspecific, but often seen with chronic microvascular ischemic disease. Please note that MRI with diffusion imaging is more sensitive in the detection of acute ischemic event. VENTRICLES: No hydrocephalus. CALVARIUM: Unremarkable. PARANASAL SINUSES: Unremarkable as visualized. No significant inflammatory changes. MASTOID AIR CELLS: Unremarkable as visualized. No inflammatory changes. OTHER FINDINGS: Multiple calcified subcutaneous scalp masses, possibly sebaceous cysts. Partially imaged right occipital mass has some cystic areas within it . Uncertain significance. IMPRESSION: Generalized atrophy. Nonspecific white matter changes. Multiple re-identified calcified subcutaneous scalp masses as described. Uncertain significance.
[2018-11-23] MEDS ORDERED: Potassium Chloride 20 mEq ER Tab PO STA (14:26)
[2018-11-23] MEDS: Sodium Chloride 0.9% 1,000 ML IV SCH (15:00)
[2018-11-23] MEDS ORDERED: Potassium Chloride 20 mEq ER Tab PO ONE (15:01)
--- NOTE | 2018-11-23 16:08 | CARD ---
APPROVED REPORT Date of service: 11/23/2018 EKG Measurement Heart [id number] <Conclusion> Normal sinus rhythm Left axis deviation Voltage criteria for left ventricular hypertrophy Inferior infarct, age undetermined Abnormal ECG
--- NOTE | 2018-11-23 16:52 | CP.PCM.HP ---
<Harley Lyn - Last Filed: 11/23/18 17:35> History of Present Illness - History of Present Illness History of Present Illness: PGY-1 H&P note for Dr Jonny Beyer service cc: weakness Patient is a 73 yo male with past medical history of Paroxysmal atrial fibrillation, CAD s/p stent, HTN, HLD, unspecified thyroid condition that came to the ED for lower extremity and upper extremity weakness that started 2 days ago, but has been at worse this am. Patient states this is the first time he experienced this degree of weakness. Patient states he felt tightness in his legs that did not allow him to walk as he usually does, as well as was not able to do his daily activities. Patient describes having stiffness in his arms and neck area as well. Patient also mentions feeling tightness in his right chest area, patient believes is of muscular origin. Admits to tingling in the left 1-2 tips of fingers, and right tip of 3rd finger. Patient admits to dizziness, but denies any falls or LOC. Patient admits to having mild weakness grabbing a cup of coffee with his right hand. Patient denies chest pain, shortness of breath, palpitations, abdominal pain, n/v/d/c or urinary retention, burning, or pain when urinating. PMD: Kirk Sainz Cardio: Juanito Nayak Allergies: NKDA Pmhx: Paroxysmal atrial fibrillation, CAD, HTN, HLD Shx: parotid mass resection, excision of multiple squamous cell carcinomas , nasal surgery x2, 2 inguinal hernia repairs, left toe surgery Fmhx: [place] (mother) Sochx: denies alcohol, tobacco, drug use. Patient lives with sister. 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 Meds: ASA 81 mg PO daily, cardizem 360mg PO daily, Metoprolol 50mg PO BID, Xarelto 20mg PO QD Present on Admission - Present on Admission Any Indicators Present on Admission: No Review of Systems - Review of Systems All systems: reviewed and no additional remarkable complaints except Review of Systems: as stated in HPI Past Patient History - Infectious Disease Hx of Infectious Diseases: None - Past Medical History & Family History Past Medical History?: Yes - Past Social History Smoking Status: Never Smoked - CARDIAC Hx Atrial Fibrillation: Yes Hx Cardia Arrhythmia: Yes Hx Congestive Heart Failure: Yes Hx Hypercholesterolemia: Yes Hx Hypertension: Yes - NEUROLOGICAL Hx Neurological Disorder: No - HEENT Hx HEENT Problems: No (DYSPHAGIA) - RENAL Hx Chronic Kidney Disease: No - ENDOCRINE/METABOLIC Hx Endocrine Disorders: No - HEMATOLOGICAL/ONCOLOGICAL Hx Blood Transfusions: No Hx Cancer: Yes (parotid cancer,) - INTEGUMENTARY Hx Dermatological Problems: Yes 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 - MUSCULOSKELETAL/RHEUMATOLOGICAL Hx Arthritis: Yes - GASTROINTESTINAL Hx Gastrointestinal Disorders: Yes HX Swallowing Problems: Yes - GENITOURINARY/GYNECOLOGICAL Hx Genitourinary Disorders: Yes Hx Prostate Problems: Yes - PSYCHIATRIC Hx Substance Use: No - SURGICAL HISTORY Hx Coronary Stent: Yes - ANESTHESIA Hx Anesthesia: Yes Hx Anesthesia Reactions: No Meds Allergies/Adverse Reactions: Allergies Allergy/AdvReac Type Severity Reaction Status Date / Time No Known Allergies Allergy Verified 11/23/18 09:42 Physical Exam - Constitutional Appears: Non-toxic, No Acute Distress - Head Exam Head Exam: ATRAUMATIC Additional comments: soft large mass located on the right occipital area over the scalp, nontender, non purulent, non erythematous. - Eye Exam Eye Exam: EOMI, Normal appearance, PERRL Pupil Exam: NORMAL ACCOMODATION - ENT Exam ENT Exam: Mucous Membranes Moist, Normal Exam, Normal Oropharynx Additional comments: abnormal uvula shape - Neck Exam Neck exam: Positive for: Full Rom, Normal Inspection. Negative for: Lym phadenopathy, Tenderness, Thyromegaly - Respiratory Exam Respiratory Exam: Clear to Auscultation Bilateral, NORMAL BREATHING PATTERN. absent: Chest Wall Tenderness, Rales, Rhonchi, Wheezes, Respiratory Distress - Cardiovascular Exam Cardiovascular Exam: REGULAR RHYTHM, +S1, +S2 - GI/Abdominal Exam GI & Abdominal Exam: Normal Bowel Sounds, Soft. absent: Distended, Tenderness Additional comments: umbilical hernia - Extremities Exam Extremities exam: Positive for: normal inspection, pedal pulses present. Negati ve for: joint swelling, pedal edema, tenderness - Back Exam Back exam: NORMAL INSPECTION - Neurological Exam Neurological exam: Alert, Oriented x3 - Psychiatric Exam Psychiatric exam: Normal Affect, Normal Mood - Skin Skin Exam: Normal Color, Warm Additional comments: left side frontal area in forehead dry, healed scab. Results - Vital Signs Recent Vital Signs: Last Vital Signs Temp 98.7 F 11/23/18 14:05 Pulse 68 11/23/18 14:05 Resp 18 11/23/18 14:05 BP 155/87 H 11/23/18 14:05 Pulse Ox 96 11/23/18 15:18 - Labs Result Diagrams: 11/23/18 11:00 11/23/18 11:00 Labs: Laboratory Results - last 24 hr 11/23/18 11/23/18 11/23/18 09:39 11:00 11:00 WBC 4.9 RBC 3.54 L Hgb 12.1 Hct 35.5 MCV 100.4 H MCH 34.1 H MCHC 34.0 RDW 15.1 H Plt Count 141 MPV 9.9 Neut % (Auto) 66.1 Lymph % (Auto) 19.0 L [place] % (Auto) 9.6 Eos % (Auto) 4.1 H Baso % (Auto) 1.2 Neut # (Auto) 3.2 Lymph # (Auto) 0.9 L [place] # (Auto) 0.5 Eos # (Auto) 0.2 Baso # (Auto) 0.1 Sodium 139 Potassium 3.1 L Chloride 100 Carbon Dioxide 33 H Anion Gap 9 L BUN 31 H Creatinine 1.8 H Est GFR ( Amer) 45 Est GFR (Non-Af Amer) 37 POC Glucose (mg/dL) 97 Random Glucose 93 Calcium 8.7 Total Bilirubin 0.7 AST 82 H D ALT 56 Alkaline Phosphatase 254 H Troponin I 0.0260 Total Protein 7.4 Albumin 3.9 Globulin 3.5 Albumin/Globulin Ratio 1.1 Urine Color Urine Clarity Urine pH Ur Specific [place] Urine Protein Urine Glucose (UA) Urine Ketones Urine Blood Urine Nitrate Urine Bilirubin Urine Urobilinogen Ur Leukocyte Esterase Urine WBC (Auto) Urine RBC (Auto) Alcohol, Quantitative < 10 11/23/18 11:06 WBC RBC Hgb Hct MCV MCH MCHC RDW Plt Count MPV Neut % (Auto) Lymph % (Auto) [place] % (Auto) Eos % (Auto) Baso % (Auto) Neut # (Auto) Lymph # (Auto) [place] # (Auto) Eos # (Auto) Baso # (Auto) Sodium Potassium Chloride Carbon Dioxide Anion Gap BUN Creatinine Est GFR ( Amer) Est GFR (Non-Af Amer) POC Glucose (mg/dL) Random Glucose Calcium Total Bilirubin AST ALT Alkaline Phosphatase Troponin I Total Protein Albumin Globulin Albumin/Globulin Ratio Urine Color Yellow Urine Clarity Clear Urine pH 7.0 Ur Specific [place] 1.010 Urine Protein 2+ H Urine Glucose (UA) Normal Urine Ketones Negative Urine Blood Negative Urine Nitrate Negative Urine Bilirubin Negative Urine Urobilinogen Normal Ur Leukocyte Esterase Neg Urine WBC (Auto) 1 Urine RBC (Auto) < 1 Alcohol, Quantitative Assessment & Plan - Assessment and Plan (Free Text) Plan: Upper and lower extremity weakness R/O CVA vs TIA vs Cardiac etiology -assoc with dizziness/chest tightness -EKG -NSR 76 bpm, LVH, QRS, QT normal, no St elevations - troponin x 1 negative - troponin x 2 - follow up - CXray - cardiomegaly, hypoinflation, elevation right hemidiaphragm - CT head - no hemorrhage, no hydrocephalus, atrophy, nonspecific white matter changes, multiple subcutaneous calcified scalp masses - U/A - protein 2+ - carotid doppler - f/u - MRI w/o contrast - f/u - Echo - f/u - Last echo ( 01/22/2017 ) - left ventricle systolic function is mildly to mederately impaired. EF is 40-45%, right ventricular systolic function is normal. left atrium is moderately dilated. Thrombus noted in left atrial appendage. the right atrium is moderately dilated. mild to moderately athersclerosis. - Neuro consult - Dr Washington - Cardiology consult - Nael Alanis Meds: - NS @100mls/hr - continue home xarelto 20mg PO HS - check factor X levels in am - ASA 81 mg PO QD - Cont home cardizem and metoprolol - Crestor 5mg PO QHS Hx of paroxysmal atrial fibrillation - on telemetry - Cardizem 360 mg PO QD - Continue xarelto 20 mg PO HS - we will check factor X levels in am - f/u - Metoprolol 50mg PO BID - Cardio consult - Nael Alanis RACHID - BUN/Cr - 31/1.8 - f/u am labs - NS @ 100 mls/hr Hypokalemia - ED @ 3.1 - Kdur 40meq x1 dose at ED. - Kdur 40 meq x1 dose - follow up am labs, replete as needed Hx of CAD - Crestor 5mg PO HS - ASA, lopressor - continue hx of HTN - continue monitor BP - cont metoprolol 50mg PO BID - cont Cardizem 360 mg PO daily hx of HLD - Crestor 5mg PO QHS - Lipid panel f/u unspecified thyroid disease - not on any medication at this time - TSH and free t4 - f/u ppx - SCDs , xarelto for DVT - GI ppx - not indicated - HHD 2Na - PT/OT - please eval and treat Plan discussed with Dr Kayleen Lyn, PGY-1 - Date & Time Date: 11/23/18 Time: 16:00 <Jonny Beyer - Last Filed: 11/24/18 07:43> Results - Vital Signs Recent Vital Signs: Last Vital Signs Temp 97.9 F 11/24/18 00:00 Pulse 51 L 11/24/18 00:00 Resp 20 11/24/18 00:00 BP 133/69 11/24/18 00:00 Pulse Ox 94 L 11/24/18 00:00 - Labs Result Diagrams: 11/24/18 06:18 11/24/18 06:18 Labs: Laboratory Results - last 24 hr 11/23/18 11/23/18 11/23/18 09:39 11:00 11:00 WBC 4.9 RBC 3.54 L Hgb 12.1 Hct 35.5 MCV 100.4 H MCH 34.1 H MCHC 34.0 RDW 15.1 H Plt Count 141 MPV 9.9 Neut % (Auto) 66.1 Lymph % (Auto) 19.0 L [place] % (Auto) 9.6 Eos % (Auto) 4.1 H Baso % (Auto) 1.2 Neut # (Auto) 3.2 Lymph # (Auto) 0.9 L [place] # (Auto) 0.5 Eos # (Auto) 0.2 Baso # (Auto) 0.1 Sodium 139 Potassium 3.1 L Chloride 100 Carbon Dioxide 33 H Anion Gap 9 L BUN 31 H Creatinine 1.8 H Est GFR ( Amer) 45 Est GFR (Non-Af Amer) 37 POC Glucose (mg/dL) 97 Random Glucose 93 Calcium 8.7 Total Bilirubin 0.7 AST 82 H D ALT 56 Alkaline Phosphatase 254 H Troponin I 0.0260 Total Protein 7.4 Albumin 3.9 Globulin 3.5 Albumin/Globulin Ratio 1.1 Triglycerides Cholesterol LDL Cholesterol Direct HDL Cholesterol Free T4 TSH 3rd Generation Urine Color Urine Clarity Urine pH Ur Specific [place] Urine Protein Urine Glucose (UA) Urine Ketones Urine Blood Urine Nitrate Urine Bilirubin Urine Urobilinogen Ur Leukocyte Esterase Urine WBC (Auto) Urine RBC (Auto) Alcohol, Quantitative < 10 11/23/18 11/23/18 11/24/18 11:06 19:56 02:00 WBC RBC Hgb Hct MCV MCH MCHC RDW Plt Count MPV Neut % (Auto) Lymph % (Auto) [place] % (Auto) Eos % (Auto) Baso % (Auto) Neut # (Auto) Lymph # (Auto) [place] # (Auto) Eos # (Auto) Baso # (Auto) Sodium Potassium Chloride Carbon Dioxide Anion Gap BUN Creatinine Est GFR ( Amer) Est GFR (Non-Af Amer) POC Glucose (mg/dL) Random Glucose Calcium Total Bilirubin AST ALT Alkaline Phosphatase Troponin I 0.0320 0.0310 Total Protein Albumin Globulin Albumin/Globulin Ratio Triglycerides Cholesterol LDL Cholesterol Direct HDL Cholesterol Free T4 TSH 3rd Generation Urine Color Yellow Urine Clarity Clear Urine pH 7.0 Ur Specific [place] 1.010 Urine Protein 2+ H Urine Glucose (UA) Normal Urine Ketones Negative Urine Blood Negative Urine Nitrate Negative Urine Bilirubin Negative Urine Urobilinogen Normal Ur Leukocyte Esterase Neg Urine WBC (Auto) 1 Urine RBC (Auto) < 1 Alcohol, Quantitative 11/24/18 11/24/18 11/24/18 06:18 06:18 06:18 WBC 5.1 RBC 3.31 L Hgb 11.3 L Hct 33.2 L MCV 100.2 H MCH 34.0 H MCHC 33.9 RDW 15.0 H Plt Count 132 MPV 9.4 Neut % (Auto) 58.9 Lymph % (Auto) 25.3 [place] % (Auto) 10.3 H Eos % (Auto) 4.4 H Baso % (Auto) 1.1 Neut # (Auto) 3.0 Lymph # (Auto) 1.3 [place] # (Auto) 0.5 Eos # (Auto) 0.2 Baso # (Auto) 0.1 Sodium 138 Potassium 2.8 L Chloride 103 Carbon Dioxide 29 Anion Gap 9 L BUN 21 H Creatinine 1.5 Est GFR ( Amer) 56 Est GFR (Non-Af Amer) 46 POC Glucose (mg/dL) Random Glucose 83 Calcium 7.8 L Total Bilirubin 0.5 AST 69 H ALT 45 Alkaline Phosphatase 206 H Troponin I Total Protein 6.3 Albumin 3.2 L Globulin 3.0 Albumin/Globulin Ratio 1.1 Triglycerides 84 Cholesterol 166 LDL Cholesterol Direct 78 HDL Cholesterol 64 Free T4 1.34 TSH 3rd Generation 1.06 Urine Color Urine Clarity Urine pH Ur Specific [place] Urine Protein Urine Glucose (UA) Urine Ketones Urine Blood Urine Nitrate Urine Bilirubin Urine Urobilinogen Ur Leukocyte Esterase Urine WBC (Auto) Urine RBC (Auto) Alcohol, Quantitative Attending/Attestation - Attestation I have personally seen and examined this patient.: Yes I have fully participated in the care of the patient.: Yes I have reviewed all pertinent clinical information: Yes Notes (Text): 11/24/18 07:37 Medical attending: Patient was seen and examined by me. Agree with the above note by the resident The patient reports having weakness bilaterally especially with walking. He reports his walking is very minimal and his steps are almost shuffling like small steps he says. Also bilateral numbness in the hand. My immediate concern is he has a history of paroxymal atrial fibrillation and he may have had a small CVA not seen on CT He says he's had MRI before but he doesn't want it again. We will talk to him more tommorow We will order dopplers of the neck, the creatine is somewhat elevated for CTA It is also is possible he maybe having something such as Parkinson For the time being we are continuing his home medications He will also need a PT/OT evaluation Jonny Beyer
[2018-11-24 01:29] VITALS: RESP 20
[2018-11-24] MEDS: Sodium Chloride 0.9% 1,000 ML IV SCH ×4 (02:00→22:00)
[2018-11-24 06:27] LABS: BASO # 0.1 K/uL (0.0-0.2); BASO % 1.1 % (0.0-2.0); EOS # 0.2 K/uL (0.0-0.7); EOS % 4.4 % (0.0-4.0); HEMOGLOBIN 11.3 g/dL (12.0-18.0); LYMPH # 1.3 K/uL (1.0-4.3); LYMPH % 25.3 % (20.0-40.0); MEAN CELL VOLUME 100.2 fL (80.0-94.0); MEAN CORPUSCULAR HGB CONC 33.9 g/dL (33.0-37.0); MEAN PLATELET VOLUME 9.4 fL (7.2-11.7); MONO # 0.5 K/uL (0.0-0.8); MONO % 10.3 % (0.0-10.0); NEUT % 58.9 % (50.0-75.0); NRBC % 0.1 % (0.0-2.0); RBC 3.31 Mil/uL (4.40-5.90); WHITE BLOOD COUNT 5.1 K/uL (4.8-10.8)
[2018-11-24 07:11] LABS: ALB/GLOB RATIO 1.1 (1.0-2.1); ALBUMIN 3.2 g/dL (3.5-5.0); CALCIUM 7.8 mg/dl (8.6-10.4)
[2018-11-24] MEDS ORDERED: Potassium Chloride 20 mEq ER Tab PO ONE ×2 (08:00→17:00)
[2018-11-24] MEDS ORDERED: diltiaZEM 180 mg/24 Hours CD Cap PO SCH (10:00)
--- NOTE | 2018-11-24 13:11 | CP.PCM.CON ---
History of Present Illness - History of Present Illness History of Present Illness: Palliative consult requested by Doctor Lyn for goals of care discussion Patient is a 73 yo male admitted from home with weakness to B/L LEs, shoulders and neck. This was accompanied by dizziness and tingling sensation to fingers a nd toes X 3 days. Patient reported weak gait within those 3 days what was not case before. Patient claimed was able to ambulate. Patient sustained fall at home and hit his head . Patient denies losing consciences. CT head upon admission was negative acute findings. patient had doppler of neck done today, results are pending. The Medical team is trying to R/O CVA. PMH: High cholesterol, A Fib, BPH, HTN, CHF Soc. Hx: single, has no children, lives with his sister Ms. Heidi Monzon ) Fam. Hx: denied Review of Systems - Constitutional Constitutional: absent: As Per HPI, Anorexia, Chills, Daytime Sleepiness, Excessive Sweating, Fatigue, Fever, Frequent Falls, Headache, Increased Appetite, Lethargy, Malaise, Night Sweats, Snoring, Sleep Apnea, Weight Gain, Weight Loss, Weakness, Other - EENT Eyes: absent: As Per HPI, Blind Spots, Blurred Vision, Change in Vision, De creased Night Vision, Diplopia, Discharge, Dry Eye, Exophthalmos, Floaters, Irritation, Itchy Eyes, Loss of Peripheral Vision, Pain, Photophobia, Requires Corrective Lenses, Sees Flashes, Spots in Vision, Tunnel Vision, Other Visual Disturbances, Loss of Vision, Other Ears: absent: As Per HPI, Decreased Hearing, Ear Discharge, Ear Pain, Tinnitus, Abnormal Hearing, Disequilibrium, Dizziness, Other Nose/Mouth/Throat: absent: As Per HPI, Epistaxis, Nasal Congestion, Nasal Discharge, Nasal Obstruction, Nasal Trauma, Nose Pain, Post Nasal Drip, Sinus Pain, Sinus Pressure, Bleeding Gums, Change in Voice, Dental Pain, Dry Mouth, Dysphagia, Halitosis, Hoarsness, Lip Swelling, Mouth Lesions, Mouth Pain, Odynophagia, Sore Throat, Throat Swelling, Tongue Swelling, Facial Pain, Neck Pain, Neck Mass, Other - Cardiovascular Cardiovascular: absent: As Per HPI, Acrocyanosis, Chest Pain, Chest Pain at Rest, Chest Pain with Activity, Claudication, Diaphoresis, Dyspnea, Dyspnea on Exertion, Edema, Irregular Heart Rhythm, Pain Radiating to Arm/Neck/Jaw, Leg Edema, Leg Ulcers, Lightheadedness, Orthopnea, Palpitations, Paroxysmal Nocturnal Dyspnea, Pedal Edema, Radiating Pain, Rapid Heart Rate, Slow Heart Rate, Syncope, Other - Respiratory Respiratory: absent: As Per HPI, Cough, Dyspnea, Hemoptysis, Dyspnea on Exertion, Wheezing, Snoring, Stridor, Pain on Inspiration, Chest Congestion, Excessive Mucous Production, Change in Mucous Color, Pain with Coughing, Other - Gastrointestinal Gastrointestinal: absent: As Per HPI, Abdominal Pain, Belching, Bloating, Change in Bowel Habits, Change in Stool Character, Coffee Ground Emesis, Constipation, Cramping, Diarrhea, Dyspepsia, Dysphagia, Early Satiety, Excessive Flatus, Fecal Incontinence, Heartburn, Hematemesis, Hematochezia, Loose Stools, Melena, Nausea, Odynophagia, Temesmus, Vomiting, Other - Genitourinary Genitourinary: absent: As Per HPI, Change in Urinary Stream, Difficulty Urinating, Dysuria, Flank Pain, Hematuria, Pyuria, Nocturia, Urinary Incontinence, Urinary Frequency, Urinary Hesitance, Urinary Urgency, Voiding Freq/Small Amts, Freq UTI, Hx Renal/Bladder Calculi, Hx /Renal Surgery, Bladder Distension, Other - Musculoskeletal Musculoskeletal: Abnormal Gait, Muscle Weakness, Numbness - Integumentary Integumentary: absent: As Per HPI, Acne, Alopecia, Bleeding Lesions, Change in Hair, Change in Nails, Change in Pigmentation, Changing Lesions, Dry Skin, Erythema, Furuncle, Hirsutism, Lesions, New Lesions, Non-Healing Lesions, Photosensitivity, Pruritus, Rash, Skin Pain, Skin Ulcer, Sores, Striae, Swelling, Unusual Bruising, Wounds, Jaundice, Other - Neurological Neurological: Dizziness, Numbness, Frequent Falls, Paresthesias, Tingling, Weakness - Psychiatric Psychiatric: absent: As Per HPI, Abnormal Sleep Pattern, Anhedonia, Anxiety, Auditory Hallucinations, Behavioral Changes, Change in Appetite, Change in Libido, Confusion, Depression, Difficulty Concentrating, Hallucinations, Homicidal Ideation, Hopelessness, Irritability, Memory Loss, Mood Swings, Panic Attacks, Paranoia, Suicidal Ideation, Visual Hallucinations, Tactile Hallucinations, Other - Endocrine Endocrine: absent: As Per HPI, Change in Body Appearance, Change in Libido, Cold Intolorance, Deepening of Voice, Excessive Sweating, Fatigue, Flushing, Heat Intolorance, Increase in Ring/Shoe/Hat Size, Palpitations, Polydipsia, Polyphagia, Polyuria, Other - Hematologic/Lymphatic Hematologic: absent: As Per HPI, Easy Bleeding, Easy Bruising, Lymphadenopathy, Other Past Patient History - Infectious Disease Hx of Infectious Diseases: None - Past Medical History & Family History Past Medical History?: Yes - Past Social History Smoking Status: Never Smoked - CARDIAC Hx Atrial Fibrillation: Yes Hx Cardia Arrhythmia: Yes Hx Congestive Heart Failure: Yes Hx Hypercholesterolemia: Yes Hx Hypertension: Yes - NEUROLOGICAL Hx Neurological Disorder: No - HEENT Hx HEENT Problems: No (DYSPHAGIA) - RENAL Hx Chronic Kidney Disease: No - ENDOCRINE/METABOLIC Hx Endocrine Disorders: No - HEMATOLOGICAL/ONCOLOGICAL Hx Blood Transfusions: No Hx Cancer: Yes (parotid cancer,) - INTEGUMENTARY Hx Dermatological Problems: Yes 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 - MUSCULOSKELETAL/RHEUMATOLOGICAL Hx Arthritis: Yes Hx Falls: No - GASTROINTESTINAL Hx Gastrointestinal Disorders: Yes HX Swallowing Problems: Yes - GENITOURINARY/GYNECOLOGICAL Hx Genitourinary Disorders: Yes Hx Prostate Problems: Yes - PSYCHIATRIC Hx Substance Use: No - SURGICAL HISTORY Hx Coronary Stent: Yes - ANESTHESIA Hx Anesthesia: Yes Hx Anesthesia Reactions: No Meds Allergies/Adverse Reactions: Allergies Allergy/AdvReac Type Severity Reaction Status Date / Time No Known Allergies Allergy Verified 11/23/18 09:42 - Medications Medications: Current Medications Amiodarone HCl (Cordarone) 200 mg PO Q48H [facility] Last Admin: 11/24/18 10:33 Dose: Not Given Amlodipine Besylate (Norvasc) 10 mg PO DAILY [facility] Last Admin: 11/24/18 10:32 Dose: 10 mg Aspirin (Ecotrin) 81 mg PO DAILY [facility] Last Admin: 11/24/18 10:31 Dose: 81 mg Carvedilol (Coreg) 12.5 mg PO BID [facility] Last Admin: 11/24/18 10:32 Dose: Not Given Hydrochlorothiazide (Microzide) 12.5 mg PO DAILY [facility] Last Admin: 11/24/18 10:33 Dose: 12.5 mg Sodium Chloride (Sodium Chloride 0.9%) 1,000 mls @ 100 mls/hr IV .Q10H [facility] Last Admin: 11/24/18 02:00 Dose: 100 mls/hr Lisinopril (Zestril) 10 mg PO DAILY [facility] Last Admin: 11/24/18 10:30 Dose: 10 mg Potassium Chloride (K-Dur 20 Meq Er Tab) 40 meq PO ONCE ONE Stop: 11/24/18 17:01 Rivaroxaban (Xarelto) 15 mg PO DAILY [facility] Last Admin: 11/24/18 10:33 Dose: 15 mg Rosuvastatin Calcium (Crestor) 5 mg PO HS [facility] Last Admin: 11/23/18 21:24 Dose: 5 mg Tamsulosin HCl (Flomax) 0.4 mg PO DAILY [facility] Last Admin: 11/24/18 10:32 Dose: 0.4 mg Physical Exam - Constitutional Appears: No Acute Distress, Chronically Ill - Head Exam Head Exam: ATRAUMATIC, NORMAL INSPECTION, NORMOCEPHALIC - Eye Exam Eye Exam: EOMI, Normal appearance, PERRL Pupil Exam: NORMAL ACCOMODATION, PERRL - ENT Exam ENT Exam: Mucous Membranes Moist, Normal Exam - Neck Exam Neck exam: Positive for: Normal Inspection - Respiratory Exam Respiratory Exam: Rhonchi, NORMAL BREATHING PATTERN - Cardiovascular Exam Cardiovascular Exam: Bradycardia - GI/Abdominal Exam GI & Abdominal Exam: Normal Bowel Sounds, Soft - Rectal Exam Rectal Exam: Deferred - Exam Exam: NORMAL INSPECTION - Extremities Exam Extremities exam: Positive for: normal inspection, pedal pulses present - Back Exam Back exam: NORMAL INSPECTION - Neurological Exam Neurological exam: Abnormal Gait, Alert, Oriented x3 - Psychiatric Exam Psychiatric exam: Normal Affect, Normal Mood - Skin Skin Exam: Dry, Intact, Normal Color, Warm Results - Vital Signs Recent Vital Signs: Last Vital Signs Temp 98.2 F 11/24/18 08:00 Pulse 58 L 11/24/18 12:15 Resp 20 11/24/18 08:00 BP 171/69 H 11/24/18 10:30 Pulse Ox 97 11/24/18 08:00 - Labs Result Diagrams: 11/24/18 06:18 11/24/18 06:18 Labs: Laboratory Results - last 24 hr 11/23/18 11/24/18 11/24/18 19:56 02:00 06:18 WBC 5.1 RBC 3.31 L Hgb 11.3 L Hct 33.2 L MCV 100.2 H MCH 34.0 H MCHC 33.9 RDW 15.0 H Plt Count 132 MPV 9.4 Neut % (Auto) 58.9 Lymph % (Auto) 25.3 Haines % (Auto) 10.3 H Eos % (Auto) 4.4 H Baso % (Auto) 1.1 Neut # (Auto) 3.0 Lymph # (Auto) 1.3 Haines # (Auto) 0.5 Eos # (Auto) 0.2 Baso # (Auto) 0.1 Sodium Potassium Chloride Carbon Dioxide Anion Gap BUN Creatinine Est GFR ( Amer) Est GFR (Non-Af Amer) Random Glucose Calcium Phosphorus Magnesium Total Bilirubin AST ALT Alkaline Phosphatase Troponin I 0.0320 0.0310 Total Protein Albumin Globulin Albumin/Globulin Ratio Triglycerides Cholesterol LDL Cholesterol Direct HDL Cholesterol Free T4 TSH 3rd Generation 11/24/18 11/24/18 06:18 06:18 WBC RBC Hgb Hct MCV MCH MCHC RDW Plt Count MPV Neut % (Auto) Lymph % (Auto) Haines % (Auto) Eos % (Auto) Baso % (Auto) Neut # (Auto) Lymph # (Auto) Haines # (Auto) Eos # (Auto) Baso # (Auto) Sodium 138 Potassium 2.8 L Chloride 103 Carbon Dioxide 29 Anion Gap 9 L BUN 21 H Creatinine 1.5 Est GFR ( Amer) 56 Est GFR (Non-Af Amer) 46 Random Glucose 83 Calcium 7.8 L Phosphorus 2.9 Magnesium 2.1 Total Bilirubin 0.5 AST 69 H ALT 45 Alkaline Phosphatase 206 H Troponin I Total Protein 6.3 Albumin 3.2 L Globulin 3.0 Albumin/Globulin Ratio 1.1 Triglycerides 84 Cholesterol 166 LDL Cholesterol Direct 78 HDL Cholesterol 64 Free T4 1.34 TSH 3rd Generation 1.06 Assessment & Plan - Assessment and Plan (Free Text) Assessment: Palliative consult No Advance Directive on chart, PPS 30% I reviewed all medical records, diagnostic studies , examined and interviewed patient in the bed Patient is alert, oriented X 3 with speech that is clear. S/P Carotid artery doppler. Skin intact , except dry scab to right forehead, post fall injury. Diminished breath sounds , ronchi on auscultation. No cough noted, denies SOB. Abdomen soft. Patient still reports tingling to his toss and aches to both calfs. Patient is able to lift up his arms. Denies shoulders pain. BP 160/69, HR 58. Patient is on very extensive cardiac meds regimen; Norvasc, Amiodorone, HCTZ, Crestor Patient's sister at bed side. I reviewed patient's clinical condition and shared with them that final diagnosis was not made just yet, but there was suspicious about CVA or TCA. Patient stated understanding. In describing his symptoms , patient sated being able to walk and function normally until just 3 days ago when all these symptoms started. Patient hopes his condition will improve with PT and meds. patient wishes to return home to his regular life. Code status discussed. I offered information on DNR/DNI. Patient said that he remebers signing papers of this kind but was not sure where and when. His sister at bedside could not help him with it either. However, patient was very clear that if his heart or breathing stop and he should need to be resuscitated, he would like to be allowed natural , without CPR, MV or PEG. ANISA introduced. Patient signed DNR/DNI. His sister supported him. Impression * Acute weakness and numbness mostly to LEs * Unsteady gait * Fall Risk * S/P fall * patient wishes only ordinary measures * ANISA signed Suggestion * Assist with ADLs * Fall precautions * PT evaluation * SHEILA planing once diagnosis established * DNR/DNI Advance care planing 46 min Palliative care will sign off at this point. Please contact as needed.
--- NOTE | 2018-11-24 13:23 | CP.PCM.CON ---
<Melva Garibay - Last Filed: 11/24/18 18:09> History of Present Illness - History of Present Illness History of Present Illness: Neurology Consult Note: 73 year old male with past medical history of atrial fibrillation, CAD, HTN and HLD presented to the ER on 11/23/18 for upper and lower extremity weakness. Patient states for the past 3 days he started to have these symptoms with neck stiffness and soreness. Patient describes his leg weakness as feeling "tight". Patient states he also began to have tingling sensation in his fingers. He states due to these symptoms he has had difficulty writing. He states he is instructed to use a cane but can normally walk without it. However for the past 3 days he has felt weak and unstable walking. Patient denies LOC or falling at home. Patient denies chest pain, shortness of breath, palpitations, abdominal pain, dizziness, lightheadedness, nausea, vomiting, diarrhea, constipation, fever or dysuria. PMD: Kirk Sainz Hand Blocker: Juanito Nayak Past Medical History: Paroxysmal atrial fibrillation, CAD, HTN, HLD Surgical History: parotid mass resection, excision of multiple squamous cell carcinomas, 2 inguinal hernia repairs, left toe surgery Medications: ASA 81 mg PO daily, cardizem 360mg PO daily, Metoprolol 50mg PO BID, Xarelto 20mg PO QD Allergies: NKDA Family History: CT (mother); stroke (father in his 80s) Social History: denies alcohol, tobacco, drug use. Patient lives with sister. Review of Systems - Constitutional Constitutional: absent: Chills, Fever - Cardiovascular Cardiovascular: absent: Chest Pain, Dyspnea - Respiratory Respiratory: absent: Cough, Dyspnea - Gastrointestinal Gastrointestinal: absent: Abdominal Pain, Constipation, Diarrhea, Nausea, Vomiting - Genitourinary Genitourinary: absent: Dysuria - Musculoskeletal Musculoskeletal: Abnormal Gait, Muscle Weakness, Neck Pain, Tingling - Neurological Neurological: Tingling. absent: Frequent Falls, Headaches, Loss of Vision Past Patient History - Infectious Disease Hx of Infectious Diseases: None - Past Medical History & Family History Past Medical History?: Yes - Past Social History Smoking Status: Never Smoked - CARDIAC Hx Atrial Fibrillation: Yes Hx Cardia Arrhythmia: Yes Hx Congestive Heart Failure: Yes Hx Hypercholesterolemia: Yes Hx Hypertension: Yes - NEUROLOGICAL Hx Neurological Disorder: No - HEENT Hx HEENT Problems: No (DYSPHAGIA) - RENAL Hx Chronic Kidney Disease: No - ENDOCRINE/METABOLIC Hx Endocrine Disorders: No - HEMATOLOGICAL/ONCOLOGICAL Hx Blood Transfusions: No Hx Cancer: Yes (parotid cancer,) - INTEGUMENTARY Hx Dermatological Problems: Yes 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 - MUSCULOSKELETAL/RHEUMATOLOGICAL Hx Arthritis: Yes Hx Falls: No - GASTROINTESTINAL Hx Gastrointestinal Disorders: Yes HX Swallowing Problems: Yes - GENITOURINARY/GYNECOLOGICAL Hx Genitourinary Disorders: Yes Hx Prostate Problems: Yes - PSYCHIATRIC Hx Substance Use: No - SURGICAL HISTORY Hx Coronary Stent: Yes - ANESTHESIA Hx Anesthesia: Yes Hx Anesthesia Reactions: No Meds Allergies/Adverse Reactions: Allergies Allergy/AdvReac Type Severity Reaction Status Date / Time No Known Allergies Allergy Verified 11/23/18 09:42 - Medications Medications: Current Medications Amiodarone HCl (Cordarone) 200 mg PO Q48H [facility] Last Admin: 11/24/18 10:33 Dose: Not Given Amlodipine Besylate (Norvasc) 10 mg PO DAILY [facility] Last Admin: 11/24/18 10:32 Dose: 10 mg Aspirin (Ecotrin) 81 mg PO DAILY [facility] Last Admin: 11/24/18 10:31 Dose: 81 mg Carvedilol (Coreg) 12.5 mg PO BID [facility] Last Admin: 11/24/18 10:32 Dose: Not Given Hydrochlorothiazide (Microzide) 12.5 mg PO DAILY [facility] Last Admin: 11/24/18 10:33 Dose: 12.5 mg Sodium Chloride (Sodium Chloride 0.9%) 1,000 mls @ 100 mls/hr IV .Q10H [facility] Last Admin: 11/24/18 02:00 Dose: 100 mls/hr Lisinopril (Zestril) 10 mg PO DAILY [facility] Last Admin: 11/24/18 10:30 Dose: 10 mg Potassium Chloride (K-Dur 20 Meq Er Tab) 40 meq PO ONCE ONE Stop: 11/24/18 17:01 Rivaroxaban (Xarelto) 15 mg PO DAILY [facility] Last Admin: 11/24/18 10:33 Dose: 15 mg Rosuvastatin Calcium (Crestor) 5 mg PO [facility] Last Admin: 11/23/18 21:24 Dose: 5 mg Tamsulosin HCl (Flomax) 0.4 mg PO DAILY [facility] Last Admin: 11/24/18 10:32 Dose: 0.4 mg Physical Exam - Constitutional Appears: No Acute Distress - Head Exam Additional comments: scalp masses (lipomas) located in the posterior right occipital soft; and left parietal - soft - Eye Exam Eye Exam: EOMI, PERRL Pupil Exam: NORMAL ACCOMODATION - ENT Exam ENT Exam: Mucous Membranes Moist - Respiratory Exam Respiratory Exam: Clear to Auscultation Bilateral, NORMAL BREATHING PATTERN - Cardiovascular Exam Cardiovascular Exam: REGULAR RHYTHM, +S1, +S2 - GI/Abdominal Exam GI & Abdominal Exam: Normal Bowel Sounds, Soft. absent: Tenderness - Extremities Exam Extremities exam: Positive for: normal inspection. Negative for: pedal edema, tenderness - Neurological Exam Neurological exam: Alert, Oriented x3 Additional comments: decrease coordination on the right; ataxia on the right; right pronator drift - Expanded Neurological Exam Expanded Patient oriented to: person, place, time Speech: Fluid Speech Cranial nerves: EOM's Intact: Normal, Nystagmus: Normal, Tongue Deviation: Normal Ataxia: Yes Cerebellar Function: Finger to Nose: Abnormal Right, Romberg: Normal Upper motor neuron: Pronator Drift: Abnormal Right Neuro motor strength exam: Left Upper Extremity: 5, Right Upper Extremity: 5, Left Lower Extremity: 5, Right Lower Extremity: 5 Coma Scale Eye Opening: SPONTANEOUS Coma Scale Motor Response: OBEYS COMMANDS Coma Scale Verbal: Oriented Coma Scale Total: 15 - Psychiatric Exam Psychiatric exam: Normal Affect - Skin Skin Exam: Normal Color Additional comments: neurofibromas Results - Vital Signs Recent Vital Signs: Last Vital Signs Temp 98.2 F 11/24/18 08:00 Pulse 58 L 11/24/18 12:15 Resp 20 11/24/18 08:00 BP 171/69 H 11/24/18 10:30 Pulse Ox 97 11/24/18 08:00 - Labs Result Diagrams: 11/24/18 06:18 11/24/18 06:18 Labs: Laboratory Results - last 24 hr 11/23/18 11/24/18 11/24/18 19:56 02:00 06:18 WBC 5.1 RBC 3.31 L Hgb 11.3 L Hct 33.2 L MCV 100.2 H MCH 34.0 H MCHC 33.9 RDW 15.0 H Plt Count 132 MPV 9.4 Neut % (Auto) 58.9 Lymph % (Auto) 25.3 Hendricks % (Auto) 10.3 H Eos % (Auto) 4.4 H Baso % (Auto) 1.1 Neut # (Auto) 3.0 Lymph # (Auto) 1.3 Hendricks # (Auto) 0.5 Eos # (Auto) 0.2 Baso # (Auto) 0.1 Sodium Potassium Chloride Carbon Dioxide Anion Gap BUN Creatinine Est GFR ( Amer) Est GFR (Non-Af Amer) Random Glucose Calcium Phosphorus Magnesium Total Bilirubin AST ALT Alkaline Phosphatase Troponin I 0.0320 0.0310 Total Protein Albumin Globulin Albumin/Globulin Ratio Triglycerides Cholesterol LDL Cholesterol Direct HDL Cholesterol Free T4 TSH 3rd Generation 11/24/18 11/24/18 06:18 06:18 WBC RBC Hgb Hct MCV MCH MCHC RDW Plt Count MPV Neut % (Auto) Lymph % (Auto) Hendricks % (Auto) Eos % (Auto) Baso % (Auto) Neut # (Auto) Lymph # (Auto) Hendricks # (Auto) Eos # (Auto) Baso # (Auto) Sodium 138 Potassium 2.8 L Chloride 103 Carbon Dioxide 29 Anion Gap 9 L BUN 21 H Creatinine 1.5 Est GFR ( Amer) 56 Est GFR (Non-Af Amer) 46 Random Glucose 83 Calcium 7.8 L Phosphorus 2.9 Magnesium 2.1 Total Bilirubin 0.5 AST 69 H ALT 45 Alkaline Phosphatase 206 H Troponin I Total Protein 6.3 Albumin 3.2 L Globulin 3.0 Albumin/Globulin Ratio 1.1 Triglycerides 84 Cholesterol 166 LDL Cholesterol Direct 78 HDL Cholesterol 64 Free T4 1.34 TSH 3rd Generation 1.06 Assessment & Plan - Assessment and Plan (Free Text) Assessment: Right sided ataxia, decrease in coordination and pronator drift - possibly secondary to acute right cerebellar stroke vs. neurofibromatosis vs. tuberous sclerosis - Last echo ( 01/22/2017 ) - left ventricle systolic function is mildly to mederately impaired. EF is 40-45%, right ventricular systolic function is normal. left atrium is moderately dilated. Thrombus noted in left atrial appendage. the right atrium is moderately dilated. mild to moderately atherosclerosis. - f/u ECHO (11/24/18) - Head CT: no hemorrhage, no hydrocephalus, atrophy, nonspecific white matter changes, multiple subcutaneous calcified scalp masses - Brain MRI: patient could not complete due to neck tenderness - Started Flexeril 5mg tid - Brain MRI and Head/Neck MRA w/o contrast - If patient cannot complete studies will repeat head CT - Carotid doppler: Normal - Continue physical therapy History of Afib - Xarelto 15mg po daily - f/u Factor X - Carvedilol 25mg po bid CAD - ASA discontinued per cardiology Dr. Benitez - Carvedilol 25mg po bid - Lisinopril 10mg bid - Crestor 5mg po HS Hypertension - Norvasc 10mg po daily - Carvedilol 25mg po bid - Lisinopril 10mg bid - HCTZ - discontinued per cardiology Dr. Benitez Hyperlipidemia - Lipid Panel: TG 84 Chol 166 LDL 78 HDL 64 - Crestor 5mg po HS Case discussed with Dr. Felix Garibay PGY-2 <Kaushik Washington - Last Filed: 11/29/18 14:19> Results - Vital Signs Recent Vital Signs: Last Vital Signs Temp 97.7 F 11/27/18 08:00 Pulse 52 L 11/27/18 08:53 Resp 20 11/27/18 08:00 BP 160/75 H 11/27/18 10:06 Pulse Ox 96 11/29/18 11:50 - Labs Result Diagrams: 11/27/18 07:16 11/27/18 07:16 Attending/Attestation - Attestation I have personally seen and examined this patient.: Yes I have fully participated in the care of the patient.: Yes I have reviewed all pertinent clinical information: Yes Notes (Text): I agree with the assessment and plan. Will evaluate with further imaging.
--- NOTE | 2018-11-24 14:26 | CP.PCM.PN ---
<Anastasiia Dunlap Y - Last Filed: 11/24/18 14:22> Subjective - Date & Time of Evaluation Date of Evaluation: 11/24/18 Time of Evaluation: 09:00 - Subjective Subjective: PGY-1 Medicine Progress Note for Dr. Beyer Patient was seen and examined sitting up at bedside in no acute distress. Nurse reports no overnight events. Patient is becoming agitated at the coming and going to different departments for different tests but understands the medical decision making behind them. Denies chest pain, shortness of breath, abdominal pain, difficulty urinating. The Tylenol he received overnight for chronic leg pain didn't help much. Objective - Vital Signs/Intake and Output Vital Signs (last 24 hours): Temp Pulse Resp BP Pulse Ox 98.2 F 58 L 20 171/69 H 97 11/24/18 08:00 11/24/18 12:15 11/24/18 08:00 11/24/18 10:30 11/24/18 08:00 Intake and Output: 11/24/18 11/24/18 06:59 18:59 Intake Total 1200 Balance 1200 - Medications Medications: Current Medications Amiodarone HCl (Cordarone) 200 mg PO Q48H [facility] Last Admin: 11/24/18 10:33 Dose: Not Given Amlodipine Besylate (Norvasc) 10 mg PO DAILY [facility] Last Admin: 11/24/18 10:32 Dose: 10 mg Aspirin (Ecotrin) 81 mg PO DAILY [facility] Last Admin: 11/24/18 10:31 Dose: 81 mg Carvedilol (Coreg) 12.5 mg PO BID [facility] Last Admin: 11/24/18 10:32 Dose: Not Given Hydrochlorothiazide (Microzide) 12.5 mg PO DAILY [facility] Last Admin: 11/24/18 10:33 Dose: 12.5 mg Sodium Chloride (Sodium Chloride 0.9%) 1,000 mls @ 100 mls/hr IV .Q10H [facility] Last Admin: 11/24/18 12:00 Dose: Not Given Lisinopril (Zestril) 10 mg PO DAILY [facility] Last Admin: 11/24/18 10:30 Dose: 10 mg Potassium Chloride (K-Dur 20 Meq Er Tab) 40 meq PO ONCE ONE Stop: 11/24/18 17:01 Rivaroxaban (Xarelto) 15 mg PO DAILY [facility] Last Admin: 11/24/18 10:33 Dose: 15 mg Rosuvastatin Calcium (Crestor) 5 mg PO HS [facility] Last Admin: 11/23/18 21:24 Dose: 5 mg Tamsulosin HCl (Flomax) 0.4 mg PO DAILY [facility] Last Admin: 11/24/18 10:32 Dose: 0.4 mg - Labs Labs: 11/24/18 06:18 11/24/18 06:18 - Constitutional Appears: Non-toxic, No Acute Distress, Chronically Ill - Head Exam Head Exam: ATRAUMATIC Additional comments: large lipoma on R occiput, soft, nontender, no drainage - Eye Exam Eye Exam: EOMI, Normal appearance, PERRL - ENT Exam ENT Exam: Mucous Membranes Moist - Respiratory Exam Respiratory Exam: Decreased Breath Sounds, Clear to Ausculation Bilateral, NORMAL BREATHING PATTERN. absent: Rales, Rhonchi, Wheezes - Cardiovascular Exam Cardiovascular Exam: REGULAR RHYTHM, +S1, +S2 - GI/Abdominal Exam GI & Abdominal Exam: Soft, Normal Bowel Sounds. absent: Tenderness Additional comments: reducible umbilical hernia - Extremities Exam Extremities Exam: Normal Capillary Refill. absent: Calf Tenderness - Neurological Exam Neurological Exam: Alert, Awake, Oriented x3 Additional comments: shuffling gait - Psychiatric Exam Psychiatric exam: Normal Affect, Normal Mood - Skin Skin Exam: Normal Color, Warm Assessment and Plan - Assessment and Plan (Free Text) Plan: Bilateral UE and LE weakness r/o CVA vs TIA vs Cardiac etiology - assoc with dizziness/chest tightness - EKG -NSR 76 bpm, LVH, QRS, QT normal, no St elevations - ROMIs neg x3 - CXR (11/23): cardiomegaly, hypoinflation, elevation right hemidiaphragm - CT head (11/23): no hemorrhage, no hydrocephalus, atrophy, nonspecific white matter changes, multiple subcutaneous calcified scalp masses - unable to do MRI Head due to patient discomfort lying down - U/A - protein 2+ - Carotid Doppler (11/24): neg - ECHO (11/24): pending read - Neuro consulted: Dr. Washington - help appreciated - Cardio consulted: Dr. Solomon - help appreciated Meds: - NS @100mls/hr - continue home xarelto 20mg PO HS - check factor X levels in am - ASA 81 mg PO QD - Cont home cardizem and metoprolol - Crestor 5mg PO QHS Paroxysmal Atrial Fibrillation - Cardizem 360mg po daily - Metoprolol 50mg po BID - Xarelto 20mg po HS - f/u factor X levels: received - monitor on telemetry - Cardio consulted: Dr. Solomon - help appreciated Hypokalemia - K 3.1 on admission - K-dur 40meq given in ED - Mg normal - trend AM labs - replete prn RACHID - resolving - BUN/Cr 31/1.8 on admission - NS@100 - trend AM labs CAD - ASA 81mg po daily - Coreg 12.5mg po bid - Lisinopril 10mg po daily - Crestor 5mg po HS Hypertension - home Norvasc 10mg po daily - home Coreg 12.5mg po bid - home HCTZ 12.5 po daily - home Lisinopril 10mg po daily - monitor vitals Hyperlipidemia - Lipid Panel: TG 84 Chol 166 LDL 78 HDL 64 - Crestor 5mg po HS Unspecified Thyroid Disease - not on any medication at this time - TSH 1.06 - Free T4 1.34 PPx - DVT: home Xarelto 15mg po daily, SCDs - GI: not indicated - Diet: HHD 2gNa - PT/OT on board. Palliative Care consulted, POLST signed for DNR/DNI d/w Dr. Kyaleen Dunlap PGY-1 <Jonny Beyer - Last Filed: 11/24/18 18:58> Objective - Vital Signs/Intake and Output Vital Signs (last 24 hours): Temp Pulse Resp BP Pulse Ox 98.2 F 53 L 20 138/67 96 11/24/18 16:21 11/24/18 17:31 11/24/18 16:21 11/24/18 16:21 11/24/18 16:21 Intake and Output: 11/24/18 11/24/18 06:59 18:59 Intake Total 1200 Balance 1200 - Medications Medications: Current Medications Amlodipine Besylate (Norvasc) 10 mg PO DAILY [facility] Last Admin: 11/24/18 10:32 Dose: 10 mg Carvedilol (Coreg) 25 mg PO BID [facility] Cyclobenzaprine HCl (Flexeril) 5 mg PO TID [facility] Sodium Chloride (Sodium Chloride 0.9%) 1,000 mls @ 100 mls/hr IV .Q10H [facility] Last Admin: 11/24/18 12:00 Dose: Not Given Lisinopril (Zestril) 10 mg PO BID [facility] Rivaroxaban (Xarelto) 15 mg PO DAILY [facility] Last Admin: 11/24/18 10:33 Dose: 15 mg Rosuvastatin Calcium (Crestor) 5 mg PO HS [facility] Last Admin: 11/23/18 21:24 Dose: 5 mg Tamsulosin HCl (Flomax) 0.4 mg PO DAILY [facility] Last Admin: 11/24/18 10:32 Dose: 0.4 mg - Labs Labs: 11/24/18 06:18 11/24/18 06:18 Attending/Attestation - Attestation I have personally seen and examined this patient.: Yes I have fully participated in the care of the patient.: Yes I have reviewed all pertinent clinical information, including history, physical exam and plan: Yes Notes (Text): 11/24/18 18:55 Medical attending: Patient was seen and examined by me with the medical residents earlier this morning. He is still having the reports of the weakness in the lower extremities as well as the changes in his hands. As mentioned previously would like to get an MRI however patient was reluctant due to past experience. Neurology is ordering MRI with the patient premedicated to see if this will help him as he reports pain with laying for prolonged periods of time. If not able to get MRI then possible repeat CT scan of the head. The creatine is only slightly decreased from previous. We will also need a PT/OT evalaution as well Jonny Beyer
--- NOTE | 2018-11-24 16:08 | CP.PCM.CON ---
History of Present Illness - History of Present Illness History of Present Illness: The pt is a 73 year old man with a h/o atrial fib, on xarelto. Of late, he has had weakness in his amrs and legs, tingling. He was in the bathroom and the cabinet door was open, and he turned and bumped his head. He denies falling, los s of consciousness, chest pain. pt gets "dizzy, the room spins and he loses his balance, but there was no sensation of light headedness or feeling that he might faint. the pt said that he had fallen since he was a child. Contrary to previous notes, the patient has never had a coronary stent or ang ioplasty. he was here in 2014 with rapid atrial flutter, that could not be controlled with medications, and he was transferred from here to [facility] for an ablation. Cr is 1.8 and pt was admitted with K of 2.8. Mild LFT elevation with alk phos elevation. Bp has been high, echo reveals normal .Lv ef. CXR is clear ECg demonstrates nsr, possible old IMI Pt was here earlier this year with an infected dog bit on his neck. Review of Systems - Review of Systems All systems: reviewed and no additional remarkable complaints except (as above) Past Patient History - Infectious Disease Hx of Infectious Diseases: None - Past Medical History & Family History Past Medical History?: Yes - Past Social History Smoking Status: Never Smoked - CARDIAC Hx Cardiac Disorders: Yes (CAD,Paroxysmal atrial fib) Hx Congestive Heart Failure: Yes Hx Hypercholesterolemia: Yes Hx Hypertension: Yes - NEUROLOGICAL Hx Neurological Disorder: No - HEENT Hx HEENT Problems: No (DYSPHAGIA) - RENAL Hx Chronic Kidney Disease: No - ENDOCRINE/METABOLIC Hx Endocrine Disorders: No - HEMATOLOGICAL/ONCOLOGICAL Hx Blood Transfusions: No Hx Cancer: Yes (parotid cancer,) - INTEGUMENTARY Hx Dermatological Problems: Yes 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 - MUSCULOSKELETAL/RHEUMATOLOGICAL Hx Arthritis: Yes - GASTROINTESTINAL Hx Gastrointestinal Disorders: Yes HX Swallowing Problems: Yes - GENITOURINARY/GYNECOLOGICAL Hx Genitourinary Disorders: Yes Hx Prostate Problems: Yes - PSYCHIATRIC Hx Substance Use: No - SURGICAL HISTORY Hx Coronary Stent: Yes - ANESTHESIA Hx Anesthesia: Yes Hx Anesthesia Reactions: No Meds Allergies/Adverse Reactions: Allergies Allergy/AdvReac Type Severity Reaction Status Date / Time No Known Allergies Allergy Verified 11/23/18 09:42 - Medications Medications: Current Medications Amiodarone HCl (Cordarone) 200 mg PO Q48H [facility] Last Admin: 11/24/18 10:33 Dose: Not Given Amlodipine Besylate (Norvasc) 10 mg PO DAILY [facility] Last Admin: 11/24/18 10:32 Dose: 10 mg Aspirin (Ecotrin) 81 mg PO DAILY [facility] Last Admin: 11/24/18 10:31 Dose: 81 mg Carvedilol (Coreg) 12.5 mg PO BID [facility] Last Admin: 11/24/18 10:32 Dose: Not Given Hydrochlorothiazide (Microzide) 12.5 mg PO DAILY [facility] Last Admin: 11/24/18 10:33 Dose: 12.5 mg Sodium Chloride (Sodium Chloride 0.9%) 1,000 mls @ 100 mls/hr IV .Q10H [facility] Last Admin: 11/24/18 12:00 Dose: Not Given Lisinopril (Zestril) 10 mg PO DAILY [facility] Last Admin: 11/24/18 10:30 Dose: 10 mg Potassium Chloride (K-Dur 20 Meq Er Tab) 40 meq PO ONCE ONE Stop: 11/24/18 17:01 Rivaroxaban (Xarelto) 15 mg PO DAILY [facility] Last Admin: 11/24/18 10:33 Dose: 15 mg Rosuvastatin Calcium (Crestor) 5 mg PO HS [facility] Last Admin: 11/23/18 21:24 Dose: 5 mg Tamsulosin HCl (Flomax) 0.4 mg PO DAILY [facility] Last Admin: 11/24/18 10:32 Dose: 0.4 mg Physical Exam - Constitutional Appears: Well - Head Exam Additional comments: scab on right forehead - Eye Exam Eye Exam: EOMI, Normal appearance, PERRL Pupil Exam: NORMAL ACCOMODATION - ENT Exam ENT Exam: Mucous Membranes Moist - Neck Exam Neck exam: Positive for: Normal Inspection - Respiratory Exam Respiratory Exam: Clear to Auscultation Bilateral - Cardiovascular Exam Cardiovascular Exam: REGULAR RHYTHM - GI/Abdominal Exam GI & Abdominal Exam: Normal Bowel Sounds, Soft - Rectal Exam Rectal Exam: NORMAL INSPECTION - Exam Exam: NORMAL INSPECTION External exam: NORMAL EXTERNAL EXAM - Extremities Exam Extremities exam: Positive for: normal inspection - Neurological Exam Neurological exam: Alert - Psychiatric Exam Psychiatric exam: Normal Mood - Skin Skin Exam: Abrasion Results - Vital Signs Recent Vital Signs: Last Vital Signs Temp 98.2 F 11/24/18 08:00 Pulse 58 L 11/24/18 12:15 Resp 20 11/24/18 08:00 BP 171/69 H 11/24/18 10:30 Pulse Ox 97 11/24/18 08:00 - Labs Result Diagrams: 11/24/18 06:18 11/24/18 06:18 Labs: Laboratory Results - last 24 hr 11/23/18 11/24/18 11/24/18 19:56 02:00 06:18 WBC 5.1 RBC 3.31 L Hgb 11.3 L Hct 33.2 L MCV 100.2 H MCH 34.0 H MCHC 33.9 RDW 15.0 H Plt Count 132 MPV 9.4 Neut % (Auto) 58.9 Lymph % (Auto) 25.3 Wells % (Auto) 10.3 H Eos % (Auto) 4.4 H Baso % (Auto) 1.1 Neut # (Auto) 3.0 Lymph # (Auto) 1.3 Wells # (Auto) 0.5 Eos # (Auto) 0.2 Baso # (Auto) 0.1 Sodium Potassium Chloride Carbon Dioxide Anion Gap BUN Creatinine Est GFR ( Amer) Est GFR (Non-Af Amer) Random Glucose Calcium Phosphorus Magnesium Total Bilirubin AST ALT Alkaline Phosphatase Troponin I 0.0320 0.0310 Total Protein Albumin Globulin Albumin/Globulin Ratio Triglycerides Cholesterol LDL Cholesterol Direct HDL Cholesterol Free T4 TSH 3rd Generation 11/24/18 11/24/18 06:18 06:18 WBC RBC Hgb Hct MCV MCH MCHC RDW Plt Count MPV Neut % (Auto) Lymph % (Auto) Wells % (Auto) Eos % (Auto) Baso % (Auto) Neut # (Auto) Lymph # (Auto) Wells # (Auto) Eos # (Auto) Baso # (Auto) Sodium 138 Potassium 2.8 L Chloride 103 Carbon Dioxide 29 Anion Gap 9 L BUN 21 H Creatinine 1.5 Est GFR ( Amer) 56 Est GFR (Non-Af Amer) 46 Random Glucose 83 Calcium 7.8 L Phosphorus 2.9 Magnesium 2.1 Total Bilirubin 0.5 AST 69 H ALT 45 Alkaline Phosphatase 206 H Troponin I Total Protein 6.3 Albumin 3.2 L Globulin 3.0 Albumin/Globulin Ratio 1.1 Triglycerides 84 Cholesterol 166 LDL Cholesterol Direct 78 HDL Cholesterol 64 Free T4 1.34 TSH 3rd Generation 1.06 - EKG Data EKG Interpreted by: Myself (as above) EKG shows normal: Sinus rhythm Assessment & Plan - Assessment and Plan (Free Text) Assessment: 1. Pt did not have syncope or dizziness. He reports gait imbalance and leg/arm/weakness and pain. 2. Pt does not have known CAD. Normal echo wall motion, no h/o stent. 3. Pt had aflutter ablation. There have been no recurrences. Stop amiodarone. Continue xarelto unless there is more head trauma or pt falls. Pt says that he has never fallen or passed out. 4. Plan: 1. Pt has vertigo and gait imbalance with without syncope or light headedness. No LOC. 2. Pt has not had coronary angioplasty or MS. Normal wall motion on echo. As he is on xarelto, stop asa. 3. Pt had successful atrial flutter ablation. Stop amiodarone. Lfts are elevated. 3. Bp is high : increase coreg to 25 bid. increase lisinopril 4. Low K: stop hctz.
--- NOTE | 2018-11-24 19:55 | CARD ---
APPROVED REPORT Date of service: 11/24/2018 EXAM: Two-dimensional and M-mode echocardiogram with Doppler and color Doppler. Other Information Quality : GoodRhythm : NSR INDICATION Dizziness and Vertigo Atrial Fibrillation CAD Cardiomyopathy RISK FACTORS Hypertension Hyperlipidemia 2D DIMENSIONS IVSd1.3 (0.7-1.1cm)Aortic Root (2D)2.5 (2.0-3.7cm) LVDd5.3 (3.9-5.9cm)PWd1.3 (0.7-1.1cm) LA [id number] (18-58mL)LVDs3.6 (2.5-4.0cm) FS (%) 32.8 %LVEF (%)60.8 (>50%) Aortic Valve AoV Peak Tpfiufsc385.7cm/Sandor Peak GR.18mmHg Mitral Valve MV E Srrscbhp52.8cm/sMV A Qvwmdmny64.6cm/sE/A ratio1.2 TDI Lateral E' Peak V4.87cm/sMedial E' Peak V7.19cm/sE/Lateral E'17.4 E/Medial E'11.8 Tricuspid Valve TR Peak Ugftikqu361cz/sTR Peak Gr.18mbRaVKHU58gkTc <Conclusion> normal size la,lv & ra rv. mild concnetric lvh with lvef of about 60%. normal lv diastolic filling. normal aortic,mitral,tv & pv. mild mr,tr with upper normal pulmonary systolic pressures of 34 mm of hg. small posterior pericardial effusion. normal size aortic root.
[2018-11-25 07:30] LABS: BASO # 0.1 K/uL (0.0-0.2); EOS # 0.3 K/uL (0.0-0.7); EOS % 4.9 % (0.0-4.0); HEMOGLOBIN 11.1 g/dL (12.0-18.0); LYMPH # 1.3 K/uL (1.0-4.3); LYMPH % 24.5 % (20.0-40.0); MEAN CELL VOLUME 100.9 fL (80.0-94.0); MEAN CORPUSCULAR HEMOGLOBIN 34.7 pg (27.0-31.0); MEAN CORPUSCULAR HGB CONC 34.4 g/dL (33.0-37.0); MEAN PLATELET VOLUME 9.6 fL (7.2-11.7); MONO # 0.5 K/uL (0.0-0.8); MONO % 9.3 % (0.0-10.0); NEUT # 3.1 K/uL (1.8-7.0); NEUT % 60.3 % (50.0-75.0); RBC 3.2 Mil/uL (4.40-5.90); RED CELL DISTRIBUTION WIDTH 15.1 % (11.5-14.5); WHITE BLOOD COUNT 5.2 K/uL (4.8-10.8)
[2018-11-25 07:42] LABS: LDL CHOLESTEROL 76 mg/dL (0-129)
[2018-11-25] MEDS: Sodium Chloride 0.9% 1,000 ML IV SCH ×2 (07:51→17:44)
[2018-11-25 08:02] LABS: ALB/GLOB RATIO 1.1 (1.0-2.1); ALBUMIN 3.2 g/dL (3.5-5.0); ALT/SGPT 45 U/L (21-72); AST/SGOT 61 U/L (17-59); BLOOD UREA NITROGEN 20 mg/dL (9-20); CALCIUM 7.6 mg/dl (8.6-10.4); GFR NON-AFRICAN AMERICAN 50; HDL CHOLESTEROL 61 mg/dL (30-70)
[2018-11-25] MEDS ORDERED: Potassium Chloride 20 mEq ER Tab PO ONE (09:30)
--- NOTE | 2018-11-25 15:27 | CP.PCM.PN ---
<Anastasiia Dunlap Y - Last Filed: 11/25/18 15:23> Subjective - Date & Time of Evaluation Date of Evaluation: 11/25/18 Time of Evaluation: 09:50 - Subjective Subjective: PGY-1 Medicine Progress Note for Dr. Beyer Patient was seen and examined today at bedside in no acute distress. Nurse reports no overnight events. Patient has no new complaints. He was amendable to attempting MRI again, but was unable to stay still, even with Flexiril. Denies chest pain, shortness of breath, abdominal pain, difficulty urinating. Objective - Vital Signs/Intake and Output Vital Signs (last 24 hours): Temp Pulse Resp BP Pulse Ox 98.1 F 67 20 154/72 H 97 11/25/18 08:00 11/25/18 13:44 11/25/18 08:00 11/25/18 09:55 11/25/18 13:44 Intake and Output: 11/25/18 11/25/18 06:59 18:59 Intake Total 1120 1300 Balance 1120 1300 - Medications Medications: Current Medications Amlodipine Besylate (Norvasc) 10 mg PO DAILY [facility] Last Admin: 11/25/18 09:56 Dose: 10 mg Carvedilol (Coreg) 25 mg PO BID [facility] Last Admin: 11/25/18 09:55 Dose: 25 mg Cyclobenzaprine HCl (Flexeril) 5 mg PO TID [facility] Last Admin: 11/25/18 14:05 Dose: 5 mg Sodium Chloride (Sodium Chloride 0.9%) 1,000 mls @ 100 mls/hr IV .Q10H [facility] Last Admin: 11/25/18 07:51 Dose: Not Given Lisinopril (Zestril) 10 mg PO BID [facility] Last Admin: 11/25/18 09:55 Dose: 10 mg Rivaroxaban (Xarelto) 15 mg PO DAILY [facility] Last Admin: 11/25/18 09:55 Dose: 15 mg Rosuvastatin Calcium (Crestor) 5 mg PO HS [facility] Last Admin: 11/24/18 22:36 Dose: 5 mg Tamsulosin HCl (Flomax) 0.4 mg PO DAILY [facility] Last Admin: 11/25/18 09:58 Dose: 0.4 mg - Labs Labs: 11/25/18 07:04 11/25/18 07:04 - Constitutional Appears: Non-toxic, No Acute Distress, Chronically Ill - Head Exam Head Exam: ATRAUMATIC Additional comments: large soft fluctuant mass on R posterior head. L smaller soft fluctuant mass - Eye Exam Eye Exam: EOMI, Normal appearance - ENT Exam ENT Exam: Mucous Membranes Moist - Respiratory Exam Respiratory Exam: Decreased Breath Sounds, Clear to Ausculation Bilateral, NORMAL BREATHING PATTERN. absent: Rales, Rhonchi, Wheezes - Cardiovascular Exam Cardiovascular Exam: REGULAR RHYTHM, +S1, +S2 - GI/Abdominal Exam GI & Abdominal Exam: Soft, Normal Bowel Sounds. absent: Tenderness Additional comments: reducible umbilical hernia - Extremities Exam Extremities Exam: Normal Capillary Refill. absent: Calf Tenderness - Neurological Exam Neurological Exam: Alert, Awake, Oriented x3 Additional comments: shuffling gait - Psychiatric Exam Psychiatric exam: Normal Affect, Normal Mood - Skin Skin Exam: Normal Color, Warm Assessment and Plan - Assessment and Plan (Free Text) Plan: Bilateral UE and LE weakness r/o CVA vs TIA vs Cardiac etiology - assoc with dizziness/chest tightness - EKG -NSR 76 bpm, LVH, QRS, QT normal, no St elevations - ROMIs neg x3 - CXR (11/23): cardiomegaly, hypoinflation, elevation right hemidiaphragm - CT head (11/23): no hemorrhage, no hydrocephalus, atrophy, nonspecific white matter changes, multiple subcutaneous calcified scalp masses - unable to do MRI Head due to patient discomfort lying down on two separate a ttempts - f/u repeat CT head - U/A - protein 2+ - Carotid Doppler (11/24): neg - ECHO (11/24): mild concentric LVH with LVEF about 60%. normal LV diastolic filling. Mild MR TR with upper normal pulm systolic pressure. small posterior pericardial effusion with normal size aortic root - Neuro consulted: Dr. Washington - abdoulaye appreciated - Cardio consulted: Dr. Solomon - abdoulaye appreciated Meds: - NS@100 - Xarelto 20mg po HS - f/u factor X levels: received - ASA 81mg po daily - Crestor 5mg PO QHS Paroxysmal Atrial Fibrillation - Xarelto 20mg po HS - f/u factor X levels: received - monitor on telemetry - Cardio consulted: Dr. Solomon - help appreciated Hypokalemia - K 3.1 on admission - K-dur 40meq given in ED - Mg normal - trend AM labs - replete prn RACHID - resolving - BUN/Cr 31/1.8 on admission - NS@100 - trend AM labs CAD - ASA 81mg po daily - Coreg 12.5mg po bid - Lisinopril 10mg po daily - Crestor 5mg po HS Hypertension - home Norvasc 10mg po daily - home Coreg 12.5mg po bid - home HCTZ 12.5 po daily - home Lisinopril 10mg po daily - monitor vitals Hyperlipidemia - Lipid Panel: TG 84 Chol 166 LDL 78 HDL 64 - Crestor 5mg po HS Unspecified Thyroid Disease - not on any medication at this time - TSH 1.06 - Free T4 1.3 PPx - DVT: home Xarelto 15mg po daily, SCDs - GI: not indicated - Diet: HHD 2gNa - Flomax 0.4mg po daily - PT/OT on board. Palliative Care consulted, POLST signed for DNR/DNI d/w Dr. Kayleen Dunlap PGY-1 <Jonny Beyer - Last Filed: 11/25/18 19:26> Objective - Vital Signs/Intake and Output Vital Signs (last 24 hours): Temp Pulse Resp BP Pulse Ox 97.6 F 51 L 20 126/68 98 11/25/18 16:15 11/25/18 17:41 11/25/18 16:15 11/25/18 17:41 11/25/18 16:15 Intake and Output: 11/25/18 11/26/18 18:59 06:59 Intake Total 1300 Balance 1300 - Medications Medications: Current Medications Amlodipine Besylate (Norvasc) 10 mg PO DAILY [facility] Last Admin: 11/25/18 09:56 Dose: 10 mg Aspirin (Aspirin Chewable) 81 mg PO DAILY [facility] Carvedilol (Coreg) 25 mg PO BID [facility] Last Admin: 11/25/18 17:41 Dose: Not Given Cyclobenzaprine HCl (Flexeril) 5 mg PO TID [facility] Last Admin: 11/25/18 17:44 Dose: 5 mg Sodium Chloride (Sodium Chloride 0.9%) 1,000 mls @ 100 mls/hr IV .Q10H [facility] Last Admin: 11/25/18 17:44 Dose: 100 mls/hr Lisinopril (Zestril) 10 mg PO BID [facility] Last Admin: 11/25/18 17:44 Dose: 10 mg Rivaroxaban (Xarelto) 15 mg PO DAILY [facility] Last Admin: 11/25/18 09:55 Dose: 15 mg Rosuvastatin Calcium (Crestor) 5 mg PO HS [facility] Last Admin: 11/24/18 22:36 Dose: 5 mg Tamsulosin HCl (Flomax) 0.4 mg PO DAILY [facility] Last Admin: 11/25/18 09:58 Dose: 0.4 mg - Labs Labs: 11/25/18 07:04 11/25/18 07:04 Attending/Attestation - Attestation I have personally seen and examined this patient.: Yes I have fully participated in the care of the patient.: Yes I have reviewed all pertinent clinical information, including history, physical exam and plan: Yes
--- NOTE | 2018-11-25 15:49 | CP.PCM.PN ---
Subjective - Date & Time of Evaluation Date of Evaluation: 11/25/18 Time of Evaluation: 15:48 - Subjective Subjective: Neurology Follow-Up Note: Mr. Stein was evaluated this afternoon in bed. He still complains of feeling numbness and weakness to both arms and legs, which has not gotten worse nor improved since being admitted. His complaint of neck stiffness yesterday persists, however, has improved with the Flexeril. He is working with physical therapy. Currently denies h/a, dizziness, visual changes, chest pain, palpitations, sob, cough, n/v/d. Objective - Vital Signs/Intake and Output Vital Signs (last 24 hours): Temp Pulse Resp BP Pulse Ox 98.1 F 67 20 154/72 H 97 11/25/18 08:00 11/25/18 13:44 11/25/18 08:00 11/25/18 09:55 11/25/18 13:44 Intake and Output: 11/25/18 11/25/18 06:59 18:59 Intake Total 1120 1300 Balance 1120 1300 - Medications Medications: Current Medications Amlodipine Besylate (Norvasc) 10 mg PO DAILY [facility] Last Admin: 11/25/18 09:56 Dose: 10 mg Aspirin (Aspirin Chewable) 81 mg PO DAILY [facility] Carvedilol (Coreg) 25 mg PO BID [facility] Last Admin: 11/25/18 09:55 Dose: 25 mg Cyclobenzaprine HCl (Flexeril) 5 mg PO TID [facility] Last Admin: 11/25/18 14:05 Dose: 5 mg Sodium Chloride (Sodium Chloride 0.9%) 1,000 mls @ 100 mls/hr IV .Q10H [facility] Last Admin: 11/25/18 07:51 Dose: Not Given Lisinopril (Zestril) 10 mg PO BID [facility] Last Admin: 11/25/18 09:55 Dose: 10 mg Rivaroxaban (Xarelto) 15 mg PO DAILY [facility] Last Admin: 11/25/18 09:55 Dose: 15 mg Rosuvastatin Calcium (Crestor) 5 mg PO HS [facility] Last Admin: 11/24/18 22:36 Dose: 5 mg Tamsulosin HCl (Flomax) 0.4 mg PO DAILY [facility] Last Admin: 11/25/18 09:58 Dose: 0.4 mg - Labs Labs: 11/25/18 07:04 11/25/18 07:04 - Constitutional Appears: Well, Non-toxic, No Acute Distress - Head Exam Head Exam: ATRAUMATIC. absent: NORMAL INSPECTION Additional comments: has multiple soft masses to scalp, likely lipomas - Eye Exam Eye Exam: EOMI, Normal appearance, PERRL Pupil Exam: NORMAL ACCOMODATION, PERRL - ENT Exam ENT Exam: Mucous Membranes Moist - Neck Exam Neck Exam: Full ROM, Normal Inspection - Respiratory Exam Respiratory Exam: NORMAL BREATHING PATTERN - Cardiovascular Exam Cardiovascular Exam: Irregular Rhythm - Extremities Exam Extremities Exam: Full ROM. absent: Calf Tenderness, Normal Inspection (multiple dry scabs to ble, no drainage noted), Pedal Edema - Neurological Exam Neurological Exam: Alert, Awake, Oriented x3 Neuro motor strength exam: Left Upper Extremity: 5 (clinical research specialist 5/5), Right Upper Extremity: 5 (clinical research specialist 5/5), Left Lower Extremity: 5 (dorsiflexion 5/5), Right Lower Extremity: 5 (dorsiflexion 5/5) Additional comments: Speech clear and fluid. AAOx3 Follows all commands. No facial asymmetry. Strength is equal to BUE and BLE. Sensation intact b/l +ataxia noted sofiya during finger to nose test. No pronator drift noted today on exam to BUE. Reflexes brisk b/l Gait not assessed; PT notes reviewed. - Psychiatric Exam Psychiatric exam: Normal Affect, Normal Mood - Skin Skin Exam: Normal Color Assessment and Plan - Assessment and Plan (Free Text) Assessment: Assessment: Mr. Stein is a 73 y/o M who was admitted for weakness and numbness to both arms and legs, and decreased coordination. At this point, we are still r/o TIA vs CVA. He was unable to have the MRI/MRA done yesterday; states he cannot tolerate it today either. For repeat CT Head without contrast today. Plan: Imaging reviewed: -CT Head (11/23/18): Generalized atrophy. Nonspecific white matter changes. Multiple re-identified calcified subcutaneous scalp masses as described. Uncertain significance. -ECHO: EF 60% -Carotid doppler: Normal - Possibly secondary to acute right cerebellar stroke vs. neurofibromatosis vs. tuberous sclerosis - Brain MRI, Head and Neck MRA ordered--pt unable to tolerate this exam. - Repeat CT Head without contrast today--will f/u with results. - Continue PT, OT - Continue ASA and statin; on Xarelto for afib. Case discussed with Dr. Washington
--- NOTE | 2018-11-25 17:14 | CT ---
Date of service: 11/25/2018 PROCEDURE: CT HEAD WITHOUT CONTRAST. HISTORY: Rule out stroke/TIA. COMPARISON: Comparison made with prior CT scan brain dated 11/23/2018. TECHNIQUE: Axial computed tomography images were obtained through the head/brain without intravenous contrast. Radiation dose: Total exam DLP = 1267.75 mGy-cm. This CT exam was performed using one or more of the following dose reduction techniques: Automated exposure control, adjustment of the mA and/or kV according to patient size, and/or use of iterative reconstruction technique. FINDINGS: HEMORRHAGE: No acute parenchymal, subarachnoid or extra-axial hemorrhage. BRAIN: There appears to be some minimal chronic periventricular white matter ischemic changes. There are a few chronic appearing bilateral basal nuclei lacunar type infarcts as well. Note that the possibility of a small hyperacute infarct cannot be excluded. Moderate generalized volume loss. Mild vascular calcifications both carotid siphons VENTRICLES: No obstructive hydrocephalus. CALVARIUM: Calvarium intact. Redemonstrated is a large elliptical shaped multi septate cystic lesion with cluster of varying size calcifications along its right posterolateral border arising from the parieto-occipital scalp. This lesion measures approximately 9.1 x 7.4 x 4.7 cm and appears stable when compared with the prior exam. Multiple similar but smaller lesions are also again seen (in the left parasagittal suboccipital/occipital scalp 2 in the left parietal and posterior parietal scalp respectively and a smaller noncalcified lesion in the right frontal scalp) unchanged in appearance allowing for differences in patient positioning and slice placement... Note that the the outer table subjacent to all these lesions appears grossly intact without invasive changes. Findings are of uncertain etiology though appear benign. Clinical correlation with history and physical exam. Rule out neurofibromatosis versus other cutaneous pathologies. PARANASAL SINUSES: Unremarkable as visualized. No significant inflammatory changes. MASTOID AIR CELLS: Unremarkable as visualized. No inflammatory changes. OTHER FINDINGS: None. IMPRESSION: No evidence of acute intracranial hemorrhage. Minor chronic periventricular white matter ischemic changes with few scattered chronic bilateral basal nuclei lacunar type infarcts. Note that the possibility of a small hyperacute infarct cannot be excluded.. Moderate generalized volume loss.
[2018-11-25] MEDS ORDERED: Fluticasone Nasal 50 mcg/Spray NAS PRN (21:02)
[2018-11-26] MEDS: Sodium Chloride 0.9% 1,000 ML IV SCH (02:35)
[2018-11-26 07:51] LABS: EOS # 0.3 K/uL (0.0-0.7); EOS % 6.1 % (0.0-4.0); HEMOGLOBIN 10.4 g/dL (12.0-18.0); LYMPH # 1.1 K/uL (1.0-4.3); MEAN CELL VOLUME 101.5 fL (80.0-94.0); MEAN CORPUSCULAR HEMOGLOBIN 34.4 pg (27.0-31.0); MEAN CORPUSCULAR HGB CONC 33.9 g/dL (33.0-37.0); MEAN PLATELET VOLUME 9.9 fL (7.2-11.7); MONO # 0.4 K/uL (0.0-0.8); MONO % 9.6 % (0.0-10.0); NEUT # 2.7 K/uL (1.8-7.0); NEUT % 59.3 % (50.0-75.0); NRBC % 0.1 % (0.0-2.0); RBC 3.02 Mil/uL (4.40-5.90); WHITE BLOOD COUNT 4.5 K/uL (4.8-10.8)
[2018-11-26 09:28] LABS: ALT/SGPT 45 U/L (21-72); AST/SGOT 61 U/L (17-59); BLOOD UREA NITROGEN 18 mg/dL (9-20); CALCIUM 7.4 mg/dl (8.6-10.4); GFR NON-AFRICAN AMERICAN > 60
[2018-11-26] MEDS ORDERED: Potassium & Sodium Phosphate PO ONE (10:00)
[2018-11-26] MEDS ORDERED: Potassium Chloride 20 mEq ER Tab PO ONE (10:00)
--- NOTE | 2018-11-26 11:30 | CP.PCM.PN ---
<Melva Garibay - Last Filed: 11/26/18 18:31> Subjective - Date & Time of Evaluation Date of Evaluation: 11/26/18 Time of Evaluation: 08:00 - Subjective Subjective: Neurology Progress Note: Patient was seen and examined at bedside in the AM. Patient states his neck is feeling better but still a bit stiff. He states he is a bit nervous about trying the MRI machine again but will give it a go. Objective - Vital Signs/Intake and Output Vital Signs (last 24 hours): Temp Pulse Resp BP Pulse Ox 97.7 F 57 L 20 158/71 H 94 L 11/26/18 08:10 11/26/18 10:28 11/26/18 08:10 11/26/18 10:30 11/26/18 08:10 Intake and Output: 11/26/18 11/26/18 06:59 18:59 Output Total 1000 Balance -1000 - Medications Medications: Current Medications Amlodipine Besylate (Norvasc) 10 mg PO DAILY [facility] Last Admin: 11/26/18 10:30 Dose: 10 mg Aspirin (Aspirin Chewable) 81 mg PO DAILY [facility] Last Admin: 11/26/18 10:30 Dose: 81 mg Carvedilol (Coreg) 25 mg PO BID [facility] Last Admin: 11/26/18 10:30 Dose: Not Given Cyclobenzaprine HCl (Flexeril) 5 mg PO TID [facility] Last Admin: 11/26/18 10:30 Dose: 5 mg Fluticasone Propionate (Flonase) 0 spr JOSE DAILY PRN PRN Reason: Nasal congestion Last Admin: 11/25/18 22:59 Dose: 1 spr Lisinopril (Zestril) 10 mg PO BID [facility] Last Admin: 11/26/18 10:30 Dose: 10 mg Lorazepam (Ativan) 1 mg IVP TID PRN PRN Reason: neck spasm Rivaroxaban (Xarelto) 15 mg PO DAILY [facility] Last Admin: 11/26/18 10:30 Dose: 15 mg Rosuvastatin Calcium (Crestor) 5 mg PO HS [facility] Last Admin: 11/25/18 21:20 Dose: 5 mg Tamsulosin HCl (Flomax) 0.4 mg PO DAILY [facility] Last Admin: 11/26/18 10:30 Dose: 0.4 mg - Labs Labs: 11/26/18 07:10 11/26/18 07:10 - Constitutional Appears: No Acute Distress - Head Exam Additional comments: scalp masses (likely lipomas) located in the posterior right occipital soft; and left parietal - soft - Eye Exam Eye Exam: EOMI, Normal appearance - ENT Exam ENT Exam: Mucous Membranes Moist - Respiratory Exam Respiratory Exam: Clear to Ausculation Bilateral, NORMAL BREATHING PATTERN - Cardiovascular Exam Cardiovascular Exam: REGULAR RHYTHM, +S1, +S2 - GI/Abdominal Exam GI & Abdominal Exam: Soft, Normal Bowel Sounds. absent: Tenderness - Extremities Exam Extremities Exam: Normal Inspection - Neurological Exam Neurological Exam: Alert, Awake, Oriented x3 Neuro motor strength exam: Left Upper Extremity: 5, Right Upper Extremity: 5, Le ft Lower Extremity: 5, Right Lower Extremity: 5 Additional comments: Speech clear and fluid. Follows all commands. No facial asymmetry. Sensation intact b/l +ataxia noted on the right during finger to nose test and heel to roldan on the right. - Psychiatric Exam Psychiatric exam: Normal Affect - Skin Skin Exam: Normal Color Assessment and Plan - Assessment and Plan (Free Text) Assessment: 73 year old male with past medical history of atrial fibrillation, CAD, HTN and HLD presented to the ER on 11/23/18 for upper and lower extremity weakness. Imaging reviewed: -CT Head (11/23/18): Generalized atrophy. Nonspecific white matter changes. Multiple re-identified calcified subcutaneous scalp masses as described. Uncertain significance. -ECHO: EF 60% -Carotid doppler: Normal - CT Head (11/25/18): No evidence of acute intracranial hemorrhage. Minor chronic periventricular white matter ischemic changes with few scattered chronic bilateral basal nuclei lacunar type infarcts. Note that the possibility of a small hyperacute infarct cannot be excluded. Moderate generalized volume loss. - Brain MRI, Head and Neck MRA: Normal --> reviewed with Dr. Washington - Continue PT, OT - Continue ASA and statin; on Xarelto for afib. Case discussed with Dr. Felix Garibay PGY-2 <Kaushik Wasihngton - Last Filed: 11/29/18 13:59> Objective - Vital Signs/Intake and Output Vital Signs (last 24 hours): Temp Pulse Resp BP Pulse Ox 97.7 F 52 L 20 160/75 H 96 11/27/18 08:00 11/27/18 08:53 11/27/18 08:00 11/27/18 10:06 11/29/18 11:50 - Labs Labs: 11/27/18 07:16 11/27/18 07:16 Attending/Attestation - Attestation I have personally seen and examined this patient.: Yes I have fully participated in the care of the patient.: Yes I have reviewed all pertinent clinical information, including history, physical exam and plan: Yes Notes (Text): I agree with the assessment and plan: - Continue PT, OT - Continue ASA and statin; on Xarelto for afib.
--- NOTE | 2018-11-26 13:14 | VASCLAB ---
Date of service: 11/24/2018 PROCEDURE: Carotid Duplex Exam. HISTORY: weakness UE and LE, dizziness COMPARISON: None available. TECHNIQUE: Grayscale and duplex Doppler evaluation of the cervical carotid and vertebral arteries were performed. The common carotid, carotid bifurcations and cervical Internal Carotid Artery (ICA) and proximal External Carotid Artery (ECA) were evaluated. The vertebral arteries were evaluated for gross patency and flow direction. Report prepared by Pablito García, BS, RVT FINDINGS: RIGHT CAROTID ARTERIES: 1. Common Carotid Artery: No significant focal plaque formation of the right common carotid artery. Maximum Peak Systolic velocity: 81 cm/sec: End-diastolic velocity 12 cm/sec. 2. Carotid Bifurcation: plaque formation. Maximum Peak Systolic velocity: 85 cm/sec: End-diastolic velocity 10 cm/sec. 3. Internal Carotid Artery: Plaque description: 3.1. Proximal Segment: Peak systolic velocity 54 cm/sec: End-diastolic velocity 11 cm/sec - % stenosis 0-15% 3.2. Middle Segment: Peak systolic velocity 94 cm/sec: End-diastolic velocity 15 cm/sec - % stenosis 0-15% 3.3. Distal Segment: Peak systolic velocity 77 cm/sec: End-diastolic velocity 77 cm/sec - % stenosis 0-15% 4. External Carotid Artery: No significant focal plaque formation. Peak systolic velocity 103 cm/sec 5. ICA/CCA Ratio: 1.2 LEFT CAROTID ARTERIES: 1. Common Carotid Artery: No significant focal plaque formation of the left common carotid artery. Maximum Peak Systolic velocity: 82 cm/sec: End-diastolic velocity 15 cm/sec. 2. Carotid Bifurcation: plaque formation. Maximum Peak Systolic velocity: 87 cm/sec: End-diastolic velocity 9 cm/sec. 3. Internal Carotid Artery: Plaque description: 3.1. Proximal Segment: Peak systolic velocity 83 cm/sec: End-diastolic velocity 15 cm/sec - % stenosis 0-15% 3.2. Middle Segment: Peak systolic velocity 53 cm/sec: End-diastolic velocity 9 cm/sec - % stenosis 0-15% 3.3. Distal Segment: Peak systolic velocity 54 cm/sec: End-diastolic velocity 7 cm/sec - % stenosis 0-15% 4. External Carotid Artery: No significant focal plaque formation. Peak systolic velocity 99 cm/sec 5. ICA/CCA Ratio: 1.1 VERTEBRAL ARTERIES: 1. Right Vertebral Artery: The right vertebral artery flow direction is antegrade. 2. Left Vertebral Artery: The left vertebral artery flow direction is antegrade. OTHER FINDINGS: 1. Right Brachial Blood pressure: mmHg. 2. Left Brachial Blood pressure: mmHg. 3. No atherosclerotic calcification present IMPRESSION: RIGHT: Duplex scan does not suggest hemodynamically significant stenosis of the right extracranial carotid arteries. LEFT: Duplex scan does not suggest hemodynamically significant stenosis of the left extracranial carotid arteries.
--- NOTE | 2018-11-26 17:39 | CP.PCM.PCO ---
Physician Communication Note - Physician Communication Note Physician Communication Note: cr now 1.1 Will therefor increase xarelto to 20 mg a day
--- NOTE | 2018-11-26 20:42 | CP.PCM.PN ---
Subjective - Date & Time of Evaluation Date of Evaluation: 11/26/18 Time of Evaluation: 11:00 - Subjective Subjective: PGY-1 Medicine Progress Note for Dr. Beyer Patient was seen and examined today at bedside in no acute distress. Nurse reports no overnight events. Patient reports continuing stiff neck after another poor night's sleep. The muscle relaxant, Flexiril, did not help relax him as much as he had hoped. The patient offered that a previous growth on his scalp, similar to what he has now, was excised and covered with a skin graft. Pathology, per patient, reported a benign lesion consisting of fat and bone. Denies chest pain, headache, shortness of breath, abdominal pain, nausea, vomiting, constipation, diarrhea. Objective - Vital Signs/Intake and Output Vital Signs (last 24 hours): Temp Pulse Resp BP Pulse Ox 98.1 F 58 L 20 120/64 96 11/26/18 16:49 11/26/18 16:49 11/26/18 16:49 11/26/18 16:49 11/26/18 16:49 Intake and Output: 11/26/18 11/27/18 18:59 06:59 Output Total 1000 Balance -1000 - Medications Medications: Current Medications Amlodipine Besylate (Norvasc) 10 mg PO DAILY [facility] Last Admin: 11/26/18 10:30 Dose: 10 mg Aspirin (Aspirin Chewable) 81 mg PO DAILY [facility] Last Admin: 11/26/18 10:30 Dose: 81 mg Carvedilol (Coreg) 25 mg PO BID [facility] Last Admin: 11/26/18 17:48 Dose: Not Given Cyclobenzaprine HCl (Flexeril) 5 mg PO TID [facility] Last Admin: 11/26/18 17:47 Dose: 5 mg Fluticasone Propionate (Flonase) 0 spr JOSE DAILY PRN PRN Reason: Nasal congestion Last Admin: 11/25/18 22:59 Dose: 1 spr Lisinopril (Zestril) 10 mg PO BID [facility] Last Admin: 11/26/18 17:47 Dose: 10 mg Lorazepam (Ativan) 1 mg IVP TID PRN PRN Reason: neck spasm Last Admin: 11/26/18 15:51 Dose: 1 mg Rivaroxaban (Xarelto) 20 mg PO DAILY [facility] Rosuvastatin Calcium (Crestor) 5 mg PO HS [facility] Last Admin: 11/25/18 21:20 Dose: 5 mg Tamsulosin HCl (Flomax) 0.4 mg PO DAILY [facility] Last Admin: 11/26/18 10:30 Dose: 0.4 mg - Labs Labs: 11/26/18 07:10 11/26/18 07:10 - Constitutional Appears: Non-toxic, No Acute Distress, Chronically Ill - Head Exam Head Exam: ATRAUMATIC Additional comments: large soft fluctuant mass on R posterior head. L smaller soft fluctuant mass - Eye Exam Eye Exam: EOMI, Normal appearance - ENT Exam ENT Exam: Mucous Membranes Moist - Respiratory Exam Respiratory Exam: Decreased Breath Sounds, Clear to Ausculation Bilateral, NORMAL BREATHING PATTERN - Cardiovascular Exam Cardiovascular Exam: REGULAR RHYTHM, +S1, +S2 - GI/Abdominal Exam GI & Abdominal Exam: Soft, Normal Bowel Sounds. absent: Tenderness Additional comments: reducible umbilical hernia - Extremities Exam Extremities Exam: Normal Capillary Refill. absent: Calf Tenderness - Neurological Exam Neurological Exam: Alert, Awake, Oriented x3 - Psychiatric Exam Psychiatric exam: Normal Affect, Normal Mood - Skin Skin Exam: Dry, Intact, Normal Color, Warm Assessment and Plan - Assessment and Plan (Free Text) Plan: Bilateral UE and LE weakness r/o CVA vs TIA vs Cardiac etiology - assoc with dizziness/chest tightness - EKG -NSR 76 bpm, LVH, QRS, QT normal, no St elevations - ROMIs neg x3 - CXR (11/23): cardiomegaly, hypoinflation, elevation right hemidiaphragm - CT head (11/23): no hemorrhage, no hydrocephalus, atrophy, nonspecific white matter changes, multiple subcutaneous calcified scalp masses - unable to do MRI Head due to patient discomfort lying down on two separate attempts, second attempt after Flexiril - repeat CT head (11/25); no evidence of acute intracranial hemorrhage - U/A - protein 2+ - Carotid Doppler (11/24): neg - ECHO (11/24): mild concentric LVH with LVEF about 60%. normal LV diastolic filling. Mild MR TR with upper normal pulm systolic pressure. small posterior pericardial effusion with normal size aortic root - MRI Brain, MRA Head, MRA Neck completed after Ativan. pending read - Neuro consulted: Dr. Washington - help appreciated - Cardio consulted: Dr. Solomon - help appreciated Meds: - NS@100 stopped - Xarelto 20mg po HS - f/u factor X levels: received - ASA 81mg po daily - Crestor 5mg PO QHS - Ativan 1mg IVP TID PRN for anxiety and muscle stiffness Paroxysmal Atrial Fibrillation - Xarelto 20mg po daily - f/u factor X levels: received - monitor on telemetry - Cardio consulted: Dr. Solomon - help appreciated Hypokalemia - K 3.1 on admission - K-dur 40meq given in ED - Mg normal - trend AM labs - replete prn RACHID - resolved - BUN/Cr 31/1.8 on admission - NS@100 stopped - trend AM labs CAD - ASA 81mg po daily - Coreg 12.5mg po bid - Lisinopril 10mg po daily - Crestor 5mg po HS Hypertension - home Norvasc 10mg po daily - home Coreg 12.5mg po bid - home HCTZ 12.5 po daily - home Lisinopril 10mg po daily - monitor vitals Hyperlipidemia - Lipid Panel: TG 84 Chol 166 LDL 78 HDL 64 - Crestor 5mg po HS Unspecified Thyroid Disease - not on any medication at this time - TSH 1.06 - Free T4 1.3 PPx - DVT: home Xarelto 20mg po daily, SCDs - GI: not indicated - Diet: HHD 2gNa - Flomax 0.4mg po daily - PT/OT on board, recommending SHEILA on discharge. Palliative Care consulted, POLST signed for DNR/DNI d/w Dr. Kayleen Dunlap PGY-1
[2018-11-27 07:27] LABS: BASO # 0.1 K/uL (0.0-0.2); BASO % 1.3 % (0.0-2.0); EOS # 0.3 K/uL (0.0-0.7); EOS % 5.6 % (0.0-4.0); HEMOGLOBIN 11.1 g/dL (12.0-18.0); LYMPH # 0.9 K/uL (1.0-4.3); LYMPH % 18.9 % (20.0-40.0); MEAN CELL VOLUME 101.4 fL (80.0-94.0); MEAN CORPUSCULAR HEMOGLOBIN 34.1 pg (27.0-31.0); MEAN CORPUSCULAR HGB CONC 33.6 g/dL (33.0-37.0); MEAN PLATELET VOLUME 9.5 fL (7.2-11.7); MONO # 0.4 K/uL (0.0-0.8); MONO % 8.6 % (0.0-10.0); NEUT % 65.6 % (50.0-75.0); NRBC % 0.1 % (0.0-2.0); RBC 3.26 Mil/uL (4.40-5.90); RED CELL DISTRIBUTION WIDTH 15.2 % (11.5-14.5); WHITE BLOOD COUNT 4.5 K/uL (4.8-10.8)
[2018-11-27 07:38] LABS: ALB/GLOB RATIO 1.1 (1.0-2.1); ALBUMIN 3.5 g/dL (3.5-5.0); ALT/SGPT 47 U/L (21-72); AST/SGOT 68 U/L (17-59); BLOOD UREA NITROGEN 18 mg/dL (9-20); GFR NON-AFRICAN AMERICAN 59
[2018-11-27 08:52] VITALS: BP 160/75; TEMP 97.7; O2SAT 96
[2018-11-27 08:54] VITALS: PULSE 52
--- NOTE | 2018-11-27 09:13 | MRI ---
Date of service: 11/26/2018 PROCEDURE: MRI BRAIN WITHOUT CONTRAST HISTORY: upper and lower extremity weakness COMPARISON: CT head without contrast from 11/25/2018 and MRI brain from 06/07/2016 TECHNIQUE: Multiplanar, multisequence MR images of the brain were obtained without intravenous contrast enhancement. FINDINGS: HEMORRHAGE: None DWI: No evidence of an acute or early subacute infarction. BRAIN PARENCHYMA: There are mild chronic microangiopathic changes. There is no mass, mass effect or abnormal extra-axial fluid collection. There is no territorial infarction. The midline sagittal structures are normal. VENTRICLES: There is moderate age-related global parenchymal volume loss and proportionate enlargement of the ventricles and cortical sulci. There are prominent perivascular spaces in bilateral basal ganglia CRANIUM: There is normal bone marrow signal pattern. ORBITS: Grossly unremarkable. PARANASAL SINUSES/MASTOIDS: Clear VASCULAR SYSTEM: Skull base flow voids intact. OTHER FINDINGS: Incompletely imaged is a large 8.3 x 5.0 x 3.0 cm T1 hypointense and T2 hyperintense septated cystic mass in the right parieto-occipital scalp, significantly increased in size and now predominantly cystic since the prior MRI examination from May 2016.. Multiple similar smaller lesions are also noted in the left parietal scalp and right frontal scalp. IMPRESSION: No acute intracranial abnormality. Mild chronic microangiopathic changes and moderate age-related global parenchymal volume loss. Multiple cutaneous lesions as described above and a large cystic septated mass in the right parieto-occipital scalp which has increased in size since the prior examination which may represent sebaceous cysts, neurofibromatosis or other cutaneous pathologies. Clinical follow-up is advised. A preliminary report was provided by [facility] [employer].
--- NOTE | 2018-11-27 09:18 | MRI ---
Date of service: 11/26/2018 PROCEDURE: Magnetic Resonance Angiography Brain HISTORY: Upper and lower extremity weakness COMPARISON: None available. TECHNIQUE: 3D time of flight MR angiography of the intracranial arteries was performed. Rotating maximum intensity projection images were generated. FINDINGS: INTERNAL CAROTID ARTERIES: Normal flow related signal. The skull base, petrous, cavernous and supraclinoid segments are bilaterally widely patient. ANTERIOR CEREBRAL ARTERIES: Normal flow related signal. A1 and A2 segments are widely patent. Smaller distal branches unremarkable, as visualized. MIDDLE CEREBRAL ARTERIES: Normal flow related signal. M1 and M2 segments are widely patent. Perisylvian branches grossly symmetric. POSTERIOR CIRCULATION: Basilar Artery: Normal flow related signal. Normal in caliber and widely patent. Distal Vertebral Arteries: Normal flow related signal. Widely patent. The right vertebral artery is hypoplastic, an anatomic variant with Posterior Cerebral Arteries: Normal flow related signal. Widely patent. There is origin of the left posterior cerebral artery, an anatomic variant. Posterior Inferior Cerebellar Arteries: Normal flow related signal. Widely patent. ANEURYSM/ VASCULAR MALFORMATIONS: None. OTHER FINDINGS: None. IMPRESSION: Normal noncontrast MR angiography of the brain.
--- NOTE | 2018-11-27 09:20 | MRI ---
Date of service: 11/26/2018 PROCEDURE: MR Angiography of the neck without contrast HISTORY: upper and lower extremity weakness COMPARISON: None available. TECHNIQUE: 3D [id number] angiography of the neck was performed. Rotating maximum intensity projection images of the cervical carotid and vertebral arteries were generated. The origins of the common carotid arteries were not visualized, which is a limitation inherent to the non-contrast time of flight technique. FINDINGS: RIGHT CAROTID ARTERIES: Common Carotid Artery: Normal. Carotid Bifurcation: Normal. Internal Carotid Artery:Normal. External Carotid Artery (proximal branches): Normal. LEFT CAROTID ARTERIES: Common Carotid Artery: Normal. Carotid Bifurcation: Normal. Internal Carotid Artery:Normal. External Carotid Artery (proximal branches): Normal. VERTEBRAL ARTERIES: Right Vertebral Artery: Normal. Hypoplastic, an anatomic variant. Left Vertebral Artery: Normal. OTHER FINDINGS: None. IMPRESSION: Normal noncontrast MR Angiography of the neck.
--- NOTE | 2018-11-27 12:40 | CP.PCM.DIS ---
Provider - Provider Date of Admission: 11/23/18 14:54 Attending physician: Jonny Beyer DO Consults: 11/23/18 16:31 Neurology Consult Routine Comment: Consulting Provider: Kaushik Washington Consulting Physician: Kaushik Washington Reason for Consult: UE and LE weakness, dizziness, hx of afib, r/o CVA 11/23/18 16:33 Cardiology Consult Routine Comment: Consulting Provider: Nael Solomon Consulting Physician: Nael Solomon Reason for Consult: UE and LE weakness, dizziness, hx of paroxysmal afib 11/23/18 18:44 Palliative Care Consult Routine Comment: Consulting Provider: Jennifer Beaver Physician Instructions: Reason For Exam: discuss POLST Time Spent in preparation of Discharge (in minutes): 45 Diagnosis - Discharge Diagnosis (1) Bilateral leg weakness Status: Acute Hospital Course - Lab Results Lab Results: Micro Results 11/23/18 11:06 Urine Urine Culture - Final No Growth (<1,000 CFU/ML) Most Recent Lab Values WBC 4.5 K/uL (4.8-10.8) L 11/27/18 07:16 RBC 3.26 Mil/uL (4.40-5.90) L 11/27/18 07:16 Hgb 11.1 g/dL (12.0-18.0) L 11/27/18 07:16 Hct 33.0 % (35.0-51.0) L 11/27/18 07:16 MCV 101.4 fL (80.0-94.0) H 11/27/18 07:16 MCH 34.1 pg (27.0-31.0) H 11/27/18 07:16 MCHC 33.6 g/dL (33.0-37.0) 11/27/18 07:16 RDW 15.2 % (11.5-14.5) H 11/27/18 07:16 Plt Count 126 K/uL (130-400) L 11/27/18 07:16 MPV 9.5 fL (7.2-11.7) 11/27/18 07:16 Neut % (Auto) 65.6 % (50.0-75.0) 11/27/18 07:16 Lymph % (Auto) 18.9 % (20.0-40.0) L 11/27/18 07:16 [place] % (Auto) 8.6 % (0.0-10.0) 11/27/18 07:16 Eos % (Auto) 5.6 % (0.0-4.0) H 11/27/18 07:16 Baso % (Auto) 1.3 % (0.0-2.0) 11/27/18 07:16 Neut # (Auto) 3.0 K/uL (1.8-7.0) 11/27/18 07:16 Lymph # (Auto) 0.9 K/uL (1.0-4.3) L 11/27/18 07:16 [place] # (Auto) 0.4 K/uL (0.0-0.8) 11/27/18 07:16 Eos # (Auto) 0.3 K/uL (0.0-0.7) 11/27/18 07:16 Baso # (Auto) 0.1 K/uL (0.0-0.2) 11/27/18 07:16 Differential Comment 11/25/18 07:04 Factor X 84 % (70-150) 11/24/18 06:18 Sodium 139 mmol/L (132-148) 11/27/18 07:16 Potassium 3.8 mmol/L (3.6-5.2) 11/27/18 07:16 Chloride 104 mmol/L (98-107) 11/27/18 07:16 Carbon Dioxide 29 mmol/L (22-30) 11/27/18 07:16 Anion Gap 9 (10-20) L 11/27/18 07:16 BUN 18 mg/dL (9-20) 11/27/18 07:16 Creatinine 1.2 mg/dL (0.8-1.5) 11/27/18 07:16 Est GFR ( Amer) > 60 11/27/18 07:16 Est GFR (Non-Af Amer) 59 11/27/18 07:16 POC Glucose (mg/dL) 97 mg/dL (65-110) 11/23/18 09:39 Random Glucose 80 mg/dL (75-110) 11/27/18 07:16 Calcium 8.0 mg/dl (8.6-10.4) L 11/27/18 07:16 Phosphorus 2.6 mg/dL (2.5-4.5) 11/27/18 07:16 Magnesium 1.9 mg/dL (1.6-2.3) 11/27/18 07:16 Total Bilirubin 0.5 mg/dL (0.2-1.3) 11/27/18 07:16 AST 68 U/L (17-59) H 11/27/18 07:16 ALT 47 U/L (21-72) 11/27/18 07:16 Alkaline Phosphatase 230 U/L (38-126) H 11/27/18 07:16 Troponin I 0.0310 ng/mL (0.00-0.120) 11/24/18 02:00 Total Protein 6.6 g/dL (6.3-8.3) 11/27/18 07:16 Albumin 3.5 g/dL (3.5-5.0) 11/27/18 07:16 Globulin 3.1 gm/dL (2.2-3.9) 11/27/18 07:16 Albumin/Globulin Ratio 1.1 (1.0-2.1) 11/27/18 07:16 Triglycerides 95 mg/dL (0-149) 11/25/18 07:04 Cholesterol 161 mg/dL (0-199) 11/25/18 07:04 LDL Cholesterol Direct 76 mg/dL (0-129) 11/25/18 07:04 HDL Cholesterol 61 mg/dL (30-70) 11/25/18 07:04 Free T4 1.34 ng/dL (0.78-2.19) 11/24/18 06:18 TSH 3rd Generation 1.28 mIU/L (0.46-4.68) 11/25/18 07:04 Urine Color Yellow (YELLOW) 11/23/18 11:06 Urine Clarity Clear (Clear) 11/23/18 11:06 Urine pH 7.0 (5.0-8.0) 11/23/18 11:06 Ur Specific [place] 1.010 (1.003-1.030) 11/23/18 11:06 Urine Protein 2+ mg/dL (NEGATIVE) H 11/23/18 11:06 Urine Glucose (UA) Normal mg/dL (Normal) 11/23/18 11:06 Urine Ketones Negative mg/dL (NEGATIVE) 11/23/18 11:06 Urine Blood Negative (NEGATIVE) 11/23/18 11:06 Urine Nitrate Negative (NEGATIVE) 11/23/18 11:06 Urine Bilirubin Negative (NEGATIVE) 11/23/18 11:06 Urine Urobilinogen Normal mg/dL (0.2-1.0) 11/23/18 11:06 Ur Leukocyte Esterase Neg Macey/uL (Negative) 11/23/18 11:06 Urine WBC (Auto) 1 /hpf (0-5) 11/23/18 11:06 Urine RBC (Auto) < 1 /hpf (0-3) 11/23/18 11:06 Alcohol, Quantitative < 10 mg/dl (0-10) 11/23/18 11:00 - Hospital Course Hospital Course: Patient is a 73 yo male with past medical history of Paroxysmal atrial fibrillation, CAD s/p stent, HTN, HLD, unspecified thyroid condition that came to the ED for lower extremity and upper extremity weakness that started 2 days ago, but has been at worse this am. Patient states this is the first time he experienced this degree of weakness. Patient states he felt tightness in his legs that did not allow him to walk as he usually does, as well as was not able to do his daily activities. Patient describes having stiffness in his arms and neck area as well. Patient also mentions feeling tightness in his right chest area, patient believes is of muscular origin. Admits to tingling in the left 1-2 tips of fingers, and right tip of 3rd finger. Patient admits to dizziness, but denies any falls or LOC. Patient admits to having mild weakness grabbing a cup of coffee with his right hand. Patient denies chest pain, shortness of breath, palpitations, abdominal pain, n/v/d/c or urinary retention, burning, or pain when urinating. EKG showed NSR@76. ROMIs were negative x3. CXR showed cardiomegaly, hypoinflation, elevation right hemidiaphragm. CT head showed no hemorrhage, no hydrocephalus, atrophy, nonspecific white matter changes, multiple subcutaneous calcified scalp masses. Repeat CT Head showed no evidence of acute intracranial hemorrhage, however still required MRI to r/o CVA. 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 Carotid Doppler negative. MRI Brain, MRA Head, MRA Neck negative for acute intracranial event. ECHO showed mild concentric LVH with LVEF about 60%. Factor X levels 84. With stabilizing Cr levels, Xarelto increased to 20mg. Chronic conditions were managed with home medications. Potassium repleted when low. Primary Diagnosis: Bilateral Limb Weakness Patient is clear for discharge per Dr. Beyer. He can restart all of his home medications with minor changes: His home Xarelto is being increased from 15mg to 20mg po daily. He is starting Ativan 1mg IVP TID PRN for his neck spasm and agitation to help him sleep. This can be switched to PO without issue. He is starting Flonase 1 puff in each nostril PRN for nasal congestion. He will need to follow up with his PMD, Dr. Kirk Sainz, within a week of discharge from rehab. He will also follow up with the coffee taster and neurologist after discharge from rehab. If symptoms such as weakness, aphasia, or falls happen, please return to the ED immediately. This was discussed with patient who understood and agreed. This is a summary of the hospital course. Please refer to the EMR for more detail. - Date & Time of H&P Date of H&P: 11/27/18 Time of H&P: 11:30 Discharge Exam - Head Exam Head Exam: ATRAUMATIC Additional comments: large soft fluctuant mass on R posterior head. L smaller soft fluctuant mass - Eye Exam Eye Exam: EOMI, Normal appearance - ENT Exam ENT Exam: Mucous Membranes Moist - Respiratory Exam Respiratory Exam: Decreased Breath Sounds, Clear to PA & Lateral, NORMAL BREATHING PATTERN - Cardiovascular Exam Cardiovascular Exam: REGULAR RHYTHM, +S1, +S2 - GI/Abdominal Exam GI & Abdominal Exam: Normal Bowel Sounds, Soft. absent: Tenderness Additional comments: reducible umbilical hernia - Extremities Exam Extremities exam: normal capillary refill - Neurological Exam Neurological exam: Alert, CN II-XII Intact, Oriented x3 - Psychiatric Exam Psychiatric exam: Normal Affect, Normal Mood - Skin Skin Exam: Dry, Intact, Normal Color, Warm Discharge Plan - Discharge Medications Prescriptions: Aspirin [Aspirin Chewable] 81 mg PO DAILY #14 chew Fluticasone Propionate [Flonase] 1 puff JOSE DAILY PRN #1 bottle PRN Reason: Nasal Congestion LORazepam [Ativan] 1 mg IVP TID PRN #14 vial PRN Reason: neck spasm Metoprolol Tartrate [Lopressor] 50 mg PO BID #14 tab Rivaroxaban [Xarelto] 20 mg PO DAILY #14 tab - Follow Up Plan Condition: GOOD Disposition: REHAB FACILITY/REHAB UNIT Instructions: Rivaroxaban, Heart Failure, Adult (DC), Aspirin, Lorazepam, Metoprolol, Fluticasone (Nasal) Additional Instructions: Patient is clear for discharge per Dr. Beyer. He can restart all of his home medications with minor changes: His home Xarelto is being increased from 15mg to 20mg po daily. He is starting Ativan 1mg IVP TID PRN for his neck spasm and agitation to help him sleep. This can be switched to PO without issue. He is starting Flonase 1 puff in each nostril PRN for nasal congestion. He will need to follow up with his PMD, Dr. Kirk Sainz, within a week of discharge from rehab. He will also follow up with the coffee taster and neurologist after discharge from rehab. If symptoms such as weakness, aphasia, or falls happen, please return to the ED immediately. This was discussed with patient who understood and agreed. Referrals: Kaushik Washington MD [Staff Provider] - Nael Solomon MD [Staff Provider] -
== END 2018-11-27 15:53 | DRG 948 ==
LOC: C.ER 09:32 → C.9E 14:54 → C.5S 17:32
PROVIDERS: ADMIT Hospitalist; ATTEND Hospitalist
DX: R53.1 Weakness (principal); N17.9 Acute kidney failure, unspecified; E78.00 Pure hypercholesterolemia, unspecified; M43.6 Torticollis; G89.29 Other chronic pain; M79.604 Pain in right leg; M79.605 Pain in left leg; I11.0 Hypertensive heart disease with heart failure; I50.9 Heart failure, unspecified; I48.0 Paroxysmal atrial fibrillation; I25.10 Atherosclerotic heart disease of native coronary artery without angina pectoris; Z66 Do not resuscitate; E87.6 Hypokalemia; R26.81 Unsteadiness on feet; Z91.81 History of falling; Z85.828 Personal history of other malignant neoplasm of skin; D17.79 Benign lipomatous neoplasm of other sites

== ENCOUNTER 2019-01-21 11:28 | Observation (INO) | payer MEDICARE ==
[2019-01-21 11:28] VITALS: PULSE 96; BMI 24.5
[2019-01-21 12:34] LABS: BASO # 0.1 K/uL (0.0-0.2); BASO % 1.3 % (0.0-2.0); EOS # 0.3 K/uL (0.0-0.7); EOS % 6.3 % (0.0-4.0); LYMPH % 23.6 % (20.0-40.0); MEAN CELL VOLUME 100.4 fL (80.0-94.0); MEAN CORPUSCULAR HEMOGLOBIN 33.8 pg (27.0-31.0); MEAN CORPUSCULAR HGB CONC 33.7 g/dL (33.0-37.0); MEAN PLATELET VOLUME 10.4 fL (7.2-11.7); MONO # 0.3 K/uL (0.0-0.8); MONO % 7.8 % (0.0-10.0); NEUT # 2.5 K/uL (1.8-7.0); RBC 3.54 Mil/uL (4.40-5.90); RED CELL DISTRIBUTION WIDTH 14.2 % (11.5-14.5); WHITE BLOOD COUNT 4.1 K/uL (4.8-10.8)
[2019-01-21 12:36] LABS: INR 1.3; PROTHROMBIN TIME 14.1 SECONDS (9.7-12.2)
[2019-01-21 12:39] LABS: ALB/GLOB RATIO 1.3 (1.0-2.1); ALBUMIN 3.8 g/dL (3.5-5.0); ALT/SGPT 40 U/L (21-72); AST/SGOT 56 U/L (17-59); BLOOD UREA NITROGEN 18 mg/dL (9-20); CALCIUM 8.5 mg/dl (8.6-10.4); GFR NON-AFRICAN AMERICAN 50
[2019-01-21 12:51] LABS: B-TYPE NATRIURETIC PEPTIDE 119 pg/mL (0-900)
[2019-01-21 13:34] LABS: CK-MB 1.67 ng/mL (0.0-3.38)
--- NOTE | 2019-01-21 14:06 | RAD ---
Date of service: 01/21/2019 HISTORY: Chest pain COMPARISON: Comparison chest dated 11/23/2018 the anterior the 11:06 a.m. FINDINGS: LUNGS: Persistent slight elevation right hemidiaphragm likely due to eventration. Suspect mild compressive type atelectasis right lung base. Minor linear atelectasis and or scarring changes left lung base. PLEURA: No significant pleural effusion identified, no pneumothorax apparent. CARDIOVASCULAR: Mild aortic atherosclerotic calcification present. Heart remains enlarged. No pulmonary vascular congestion. OSSEOUS STRUCTURES: No significant abnormalities. VISUALIZED UPPER ABDOMEN: Normal. OTHER FINDINGS: None. IMPRESSION: Persistent slight elevation right hemidiaphragm likely due to eventration. Suspect mild compressive type atelectasis right lung base. Minor linear atelectasis and or scarring changes left lung base.
[2019-01-21 14:36] LABS: SQUAMOUS EPITHIAL 1 /hpf (0-5); URINE BILIRUBIN NEGATIVE (NEGATIVE); URINE BLOOD NEGATIVE (NEGATIVE); URINE CLARITY Hazy (Clear); URINE COLOR Yellow (YELLOW); URINE GLUCOSE (UA) NORMAL (Normal); URINE LEUKOCYTE ESTERASE TRACE Leu/uL (Negative); URINE PROTEIN 2+ mg/dL (NEGATIVE); URINE UROBILINOGEN NORMAL mg/dL (0.2-1.0)
[2019-01-21] MEDS ORDERED: Potassium Chloride 20 mEq ER Tab PO STA ×2 (15:08→21:15)
[2019-01-21] MEDS ORDERED: Potassium Chloride 20 mEq ER Tab PO ONE (15:24)
--- NOTE | 2019-01-21 16:07 | C.PDOC ---
History Of Present Illness 73 y/o male brought to ER by ambulance for evaluation of shortness of breath, non-radiating chest tightness, and generalized weakness which has been present for the past 3-4 days. He was given ASA 324mg PO in the field. He states his SOB is exertional and worse with lying flat. Patient denies fever, chills, cough, nausea, vomiting, abdominal pain, diarrhea, and dysuria. Time Seen by Provider: 01/21/19 11:46 Chief Complaint (Nursing): Weakness/Neurological Deficit History Per: Patient History/Exam Limitations: no limitations Onset/Duration Of Symptoms: Days Current Symptoms Are (Timing): Still Present Severity: Moderate Past Medical History Reviewed: Historical Data, Nursing Documentation, Vital Signs Vital Signs: Last Vital Signs Temp 98.4 F 01/21/19 15:23 Pulse 74 01/21/19 15:23 Resp 18 01/21/19 15:23 BP 143/76 01/21/19 15:23 Pulse Ox 96 01/21/19 15:23 - Medical History PMH: Arthritis, Atrial Fibrillation, Benign Prostatic Hyperplasia, Cardia Arrhythmia, CHF, HTN, Hypercholesterolemia, Hyperlipidemia Denies: Chronic Kidney Disease Surgical History: Coronary Stent, Endoscopy - [facility] Procedures EXCISION OF SCALP SKIN, EXTERNAL APPROACH, DIAGNOSTIC (11/13/15) EXCISION OF STOMACH, ENDO, DIAGN (06/03/16) ULTRASONOGRAPHY OF RIGHT AND LEFT HEART, TRANSESOPHAGEAL (01/20/17) Family History: States: No Known Family Hx - Social History Hx Alcohol Use: No Hx Substance Use: No - Immunization History Hx Tetanus Toxoid Vaccination: No Hx Influenza Vaccination: Yes Hx Pneumococcal Vaccination: No Review Of Systems Except As Marked, All Systems Reviewed And Found Negative. Constitutional: Negative for: Fever, Chills Cardiovascular: Positive for: Other (chest tightness) Respiratory: Positive for: Shortness of Breath. Negative for: Cough Gastrointestinal: Negative for: Nausea, Vomiting, Abdominal Pain, Diarrhea Genitourinary: Negative for: Dysuria, Hematuria Physical Exam - Physical Exam Appears: Non-toxic, No Acute Distress Skin: Warm, Dry Head: Normacephalic, Abrasion (abrasions on right frontal scalp), Other (scattered pustules on cheeks, large soft mass on right occipital area) Eye(s): bilateral: Normal Inspection Nose: Normal Oral Mucosa: Moist Neck: Supple Chest: Symmetrical Cardiovascular: Rhythm Regular Respiratory: Normal Breath Sounds, No Rales, No Rhonchi, No Wheezing Gastrointestinal/Abdominal: Normal Exam, Soft, No Tenderness, No Guarding, No Rebound Extremity: Normal ROM, Other (no leg edema) Neurological/Psych: Oriented x3, Normal Speech ED Course And Treatment - Laboratory Results Result Diagrams: 01/21/19 12:24 01/21/19 12:24 Lab Results: PT 14.1 SECONDS (9.7-12.2) H 01/21/19 12:24 INR 1.3 01/21/19 12:24 APTT 38 SECONDS (21-34) H 01/21/19 12:24 Troponin I 0.0190 ng/mL (0.00-0.120) 01/21/19 12:24 NT-Pro-B Natriuret Pep 119 pg/mL (0-900) 01/21/19 12:24 Total Bilirubin 0.9 mg/dL (0.2-1.3) 01/21/19 12:24 AST 56 U/L (17-59) 01/21/19 12:24 ALT 40 U/L (21-72) 01/21/19 12:24 Alkaline Phosphatase 199 U/L (38-126) H 01/21/19 12:24 Total Protein 6.8 g/dL (6.3-8.3) 01/21/19 12:24 Albumin 3.8 g/dL (3.5-5.0) 01/21/19 12:24 Globulin 3.0 gm/dL (2.2-3.9) 01/21/19 12:24 Albumin/Globulin Ratio 1.3 (1.0-2.1) 01/21/19 12:24 Urine Color Yellow (YELLOW) 01/21/19 14:26 Urine Clarity Hazy (Clear) 01/21/19 14:26 Urine pH 7.0 (5.0-8.0) 01/21/19 14:26 Ur Specific [place] 1.013 (1.003-1.030) 01/21/19 14:26 Urine Protein 2+ mg/dL (NEGATIVE) H 01/21/19 14:26 Urine Glucose (UA) Normal mg/dL (Normal) 01/21/19 14:26 Urine Ketones Negative mg/dL (NEGATIVE) 01/21/19 14:26 Urine Blood Negative (NEGATIVE) 01/21/19 14:26 Urine Nitrate Negative (NEGATIVE) 01/21/19 14:26 Urine Bilirubin Negative (NEGATIVE) 01/21/19 14:26 Urine Urobilinogen Normal mg/dL (0.2-1.0) 01/21/19 14:26 Ur Leukocyte Esterase Trace [place]/uL (Negative) 01/21/19 14:26 Urine WBC (Auto) 22 /hpf (0-5) H 01/21/19 14:26 Urine RBC (Auto) 1 /hpf (0-3) 01/21/19 14:26 Ur Squamous Epith Cells 1 /hpf (0-5) 01/21/19 14:26 ECG: Interpreted By Me, Viewed By Me ECG Rhythm: Sinus Rhythm Interpretation Of ECG: NSR with left axis deviation, Q waves in Leads 3 and AVF, no U waves, and no ST changes Rate From EC O2 Sat by Pulse Oximetry: 96 (RA) Pulse Ox Interpretation: Normal Progress Note: Labs,UA,ECG,and CXR ordered. Patient treated with Aspirin PO and Potassium Chloride PO. Disposition - Disposition Forms: [place] ([place]ish) - Scribe Statement The provider has reviewed the documentation as recorded by the [place] Carolyn Elmore Provider Attestation: All medical record entries made by the Scribe were at my direction and personally dictated by me. I have reviewed the chart and agree that the record accurately reflects my personal performance of the history, physical exam, medical decision making, and the department course for this patient. I have also personally directed, reviewed, and agree with the discharge instructions and disposition.
--- NOTE | 2019-01-21 19:08 | CP.PCM.HP ---
<Melva Garibay - Last Filed: 01/21/19 19:38> History of Present Illness - History of Present Illness History of Present Illness: Code Status: DNR/DNI POA: Heidi Stein (sister) #[phone] 73 year old male with past medical history of atrial flutter, HTN, HLD and neck spasm presents to the ER for chest pressure. Patient states he started to have chest pressure yesterday at 1AM which woke him up from his sleep. He states at that moment he didn't want to go to the ER. Patient states overnight his pain was at an 7-8/10. He states the pain was located across his chest and was cons tant. He states the pain is currently a 2/10. Patient also states he has some "achy" feeling between his shoulder blades which is about 1/10. Patient states what prompted him to come to the ER today was that he measured his heart rate and it was about 115bpm and that made him nervous for it to be above 100. Also he continues to have tingling feeling in his fingers which have been on going from November. Patient denies shortness of breath, abdominal pain, dizziness, lightheadedness, nausea, vomiting, diarrhea, constipation, fever or dysuria. PMD: Kirk Sainz Beef Splitter: Juanito Nayak Past Medical History: Atrial flutter (with ablation), HTN, HLD, neck spasm, (patient does not have history of CAD or stents confirmed with asset protection representative, Dr. Benitez note on 11/24/18) Surgical History: parotid mass resection, excision of multiple squamous cell carcinomas, 2 inguinal hernia repairs, left toe surgery Medications: Metoprolol 50mg PO BID, Xarelto 20mg PO QD --> will confirm with patient's PMD 01/22/19 for medications Allergies: NKDA Family History: [place] (mother in her 50s); stroke (father in his 80s) Social History: denies alcohol, tobacco, drug use. Patient lives with sister. Patient states he uses a walker or cane for ambulation. Present on Admission - Present on Admission Any Indicators Present on Admission: No Review of Systems - Constitutional Constitutional: absent: Chills, Fever - Cardiovascular Cardiovascular: Chest Pain, Irregular Heart Rhythm. absent: Dyspnea, Dyspnea on Exertion, Lightheadedness, Palpitations, Pedal Edema, Syncope - Respiratory Respiratory: absent: Dyspnea - Gastrointestinal Gastrointestinal: absent: Constipation, Diarrhea, Nausea, Vomiting - Genitourinary Genitourinary: absent: Dysuria - Musculoskeletal Musculoskeletal: Neck Pain, Tingling (bilateral fingers ). absent: Numbness - Neurological Neurological: absent: Dizziness, Headaches, Tremor Past Patient History - Infectious Disease Hx of Infectious Diseases: None - Past Medical History & Family History Past Medical History?: Yes - Past Social History Smoking Status: Never Smoked - CARDIAC Hx Atrial Fibrillation: Yes Hx Cardia Arrhythmia: Yes Hx Congestive Heart Failure: Yes Hx Hypercholesterolemia: Yes Hx Hypertension: Yes - NEUROLOGICAL Hx Neurological Disorder: No - HEENT Hx HEENT Problems: No (DYSPHAGIA) - RENAL Hx Chronic Kidney Disease: No - ENDOCRINE/METABOLIC Hx Endocrine Disorders: No - HEMATOLOGICAL/ONCOLOGICAL Hx Blood Transfusions: No Hx Cancer: Yes (parotid cancer,) - INTEGUMENTARY Hx Dermatological Problems: Yes 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 - MUSCULOSKELETAL/RHEUMATOLOGICAL Hx Arthritis: Yes - GASTROINTESTINAL Hx Gastrointestinal Disorders: Yes HX Swallowing Problems: Yes - GENITOURINARY/GYNECOLOGICAL Hx Genitourinary Disorders: Yes Hx Prostate Problems: Yes - PSYCHIATRIC Hx Substance Use: No - SURGICAL HISTORY Hx Coronary Stent: Yes - ANESTHESIA Hx Anesthesia: Yes Hx Anesthesia Reactions: No Meds Allergies/Adverse Reactions: Allergies Allergy/AdvReac Type Severity Reaction Status Date / Time No Known Allergies Allergy Verified 01/21/19 11:51 Physical Exam - Constitutional Appears: No Acute Distress - Head Exam Additional comments: scalp masses (lipomas) located in the posterior right/lateral occipital soft 11 1/2 x 7 1/2; and left parietal - soft - Eye Exam Eye Exam: EOMI, Normal appearance, PERRL Pupil Exam: NORMAL ACCOMODATION - ENT Exam ENT Exam: Mucous Membranes Moist - Neck Exam Neck exam: Negative for: Tenderness, Thyromegaly - Respiratory Exam Respiratory Exam: Clear to Auscultation Bilateral, NORMAL BREATHING PATTERN - Cardiovascular Exam Cardiovascular Exam: REGULAR RHYTHM, +S1, +S2 - GI/Abdominal Exam GI & Abdominal Exam: Normal Bowel Sounds, Soft. absent: Tenderness - Extremities Exam Extremities exam: Positive for: normal inspection - Neurological Exam Neurological exam: Alert, Oriented x3 - Psychiatric Exam Psychiatric exam: Normal Affect, Normal Mood Results - Vital Signs Recent Vital Signs: Last Vital Signs Temp 98.4 F 01/21/19 15:23 Pulse 61 01/21/19 18:06 Resp 19 01/21/19 18:06 BP 146/79 01/21/19 18:06 Pulse Ox 96 01/21/19 18:06 - Labs Result Diagrams: 01/21/19 12:24 01/21/19 12:24 Labs: Laboratory Results - last 24 hr 01/21/19 01/21/19 01/21/19 11:58 12:24 12:24 WBC 4.1 L RBC 3.54 L Hgb 12.0 Hct 35.5 MCV 100.4 H MCH 33.8 H MCHC 33.7 RDW 14.2 Plt Count 137 MPV 10.4 Neut % (Auto) 61.0 Lymph % (Auto) 23.6 [place] % (Auto) 7.8 Eos % (Auto) 6.3 H Baso % (Auto) 1.3 Neut # (Auto) 2.5 Lymph # (Auto) 1.0 [place] # (Auto) 0.3 Eos # (Auto) 0.3 Baso # (Auto) 0.1 PT INR APTT Sodium 137 Potassium 2.9 L Chloride 102 Carbon Dioxide 29 Anion Gap 9 L BUN 18 Creatinine 1.4 Est GFR ( Amer) > 60 Est GFR (Non-Af Amer) 50 POC Glucose (mg/dL) 91 Random Glucose 84 Calcium 8.5 L Total Bilirubin 0.9 AST 56 ALT 40 Alkaline Phosphatase 199 H Total Creatine Kinase 103 CK-MB (Mass) 1.67 Troponin I 0.0190 NT-Pro-B Natriuret Pep 119 Total Protein 6.8 Albumin 3.8 Globulin 3.0 Albumin/Globulin Ratio 1.3 Urine Color Urine Clarity Urine pH Ur Specific [place] Urine Protein Urine Glucose (UA) Urine Ketones Urine Blood Urine Nitrate Urine Bilirubin Urine Urobilinogen Ur Leukocyte Esterase Urine WBC (Auto) Urine RBC (Auto) Ur Squamous Epith Cells 01/21/19 01/21/19 12:24 14:26 WBC RBC Hgb Hct MCV MCH MCHC RDW Plt Count MPV Neut % (Auto) Lymph % (Auto) [place] % (Auto) Eos % (Auto) Baso % (Auto) Neut # (Auto) Lymph # (Auto) [place] # (Auto) Eos # (Auto) Baso # (Auto) PT 14.1 H INR 1.3 APTT 38 H Sodium Potassium Chloride Carbon Dioxide Anion Gap BUN Creatinine Est GFR ( Amer) Est GFR (Non-Af Amer) POC Glucose (mg/dL) Random Glucose Calcium Total Bilirubin AST ALT Alkaline Phosphatase Total Creatine Kinase CK-MB (Mass) Troponin I NT-Pro-B Natriuret Pep Total Protein Albumin Globulin Albumin/Globulin Ratio Urine Color Yellow Urine Clarity Hazy Urine pH 7.0 Ur Specific [place] 1.013 Urine Protein 2+ H Urine Glucose (UA) Normal Urine Ketones Negative Urine Blood Negative Urine Nitrate Negative Urine Bilirubin Negative Urine Urobilinogen Normal Ur Leukocyte Esterase Trace Urine WBC (Auto) 22 H Urine RBC (Auto) 1 Ur Squamous Epith Cells 1 Assessment & Plan - Assessment and Plan (Free Text) Assessment: Chest Pain - Monitor tele for 24H - Cardiology Consult: Dr. Benitez --> help appreciated - Trop negative - [id number] - f/u KEE/EKG x2 - Chest Xray: persistent slight elevation right hemidiaphragm likely due to eventration. Suspect mild compressive type atelectasis right lung base. Minor linear atelectasis and or scarring changes left lung Hypokalemia - K 2.9 on admission - Patient was given KCl 40 meq in the ER - f/u bmp, Mg, Phos - repleate as needed - Continue to monitor History of Atrial Flutter with ablation - Cardiology Consult: Dr. Benitez --> help appreciated - No aspirin as per cardiology - Dr. Benitez 11/24/18 Note - TSH was normal 11/25/18; f/u TSH and free T4 - Continue: * Xarelto 20mg po daily * Metoprolol 50mg po q12h History of Hypertension - Cardiology Consult: Dr. Benitez --> help appreciated - will confirm with PMD for current home medications History of HLD - Previous Lipid Panel (11/25/18): TG 84 Chol 166 LDL 78 HDL 64 - Will continue to monitor; heart healthy diet History of Neck Spasm - As per patient received physical therapy at home 2-3x per week for 30minutes and patient states he still has 3 more sessions. He does do the stretching exercises about 10minutes 3x per day on his own - Encouraged patient to complete exercises for about minutes - Recommended against muscle relaxants as patient is on a Xarelto and medications like muscle relaxants can cause patients to become lightheaded and or dizzy which could lead to a fall. - Will advise patient for osteopathic manipulative therapy to the chest and back muscles Ingrown Toe Nails - Podiatry Consult: Dr. West --> help appreciated - Nail maintenance Nasal Congestion - Nasal Saline spray TID Prophylaxis - Xarelto 20mg po daily - SCDs - GI prophylaxis is not indicated - PT/OT/OMM Case discussed with Dr. Alex Garibay PGY-2 <Alex Sainz J - Last Filed: 01/22/19 19:14> Results - Vital Signs Recent Vital Signs: Last Vital Signs Temp 98.1 F 01/22/19 07:00 Pulse 59 L 01/22/19 08:28 Resp 20 01/22/19 07:00 BP 126/71 01/22/19 08:28 Pulse Ox 96 01/22/19 09:00 - Labs Result Diagrams: 01/22/19 06:48 01/22/19 06:48 Labs: Laboratory Results - last 24 hr 01/21/19 01/21/19 01/22/19 19:49 19:49 00:29 WBC RBC Hgb Hct MCV MCH MCHC RDW Plt Count MPV Neut % (Auto) Lymph % (Auto) [place] % (Auto) Eos % (Auto) Baso % (Auto) Neut # (Auto) Lymph # (Auto) [place] # (Auto) Eos # (Auto) Baso # (Auto) Sodium 139 Potassium 3.2 L Chloride 101 Carbon Dioxide 34 H Anion Gap 8 L BUN 17 Creatinine 1.6 H Est GFR ( Amer) 52 Est GFR (Non-Af Amer) 43 Random Glucose 101 D Calcium 8.7 Phosphorus 3.0 Magnesium 1.9 Total Bilirubin AST ALT Alkaline Phosphatase Total Creatine Kinase 100 112 CK-MB (Mass) 1.49 1.35 Troponin I 0.0280 0.0250 Total Protein Albumin Globulin Albumin/Globulin Ratio Free T4 1.65 TSH 3rd Generation 0.54 01/22/19 01/22/19 06:48 06:48 WBC 5.0 RBC 3.31 L Hgb 10.9 L Hct 33.2 L MCV 100.5 H MCH 33.0 H MCHC 32.9 L RDW 14.0 Plt Count 118 L MPV 9.7 Neut % (Auto) 60.4 Lymph % (Auto) 21.9 [place] % (Auto) 9.3 Eos % (Auto) 7.0 H Baso % (Auto) 1.4 Neut # (Auto) 3.0 Lymph # (Auto) 1.1 [place] # (Auto) 0.5 Eos # (Auto) 0.4 Baso # (Auto) 0.1 Sodium 137 Potassium 3.2 L Chloride 102 Carbon Dioxide 31 H Anion Gap 6 L BUN 17 Creatinine 1.3 Est GFR ( Amer) > 60 Est GFR (Non-Af Amer) 54 Random Glucose 79 D Calcium 8.5 L Phosphorus 2.5 Magnesium 2.0 Total Bilirubin 0.6 AST 58 ALT 36 Alkaline Phosphatase 189 H Total Creatine Kinase CK-MB (Mass) Troponin I Total Protein 6.1 L Albumin 3.2 L Globulin 2.9 Albumin/Globulin Ratio 1.1 Free T4 TSH 3rd Generation Attending/Attestation - Attestation I have personally seen and examined this patient.: Yes I have fully participated in the care of the patient.: Yes I have reviewed all pertinent clinical information: Yes Notes (Text): 01/22/19 19:13 This is a late entry. Patient was seen with Dr. Garibay in the ER on 01/21/19 Care of this patient was gone over in detail with resident Dr. Phoenix Sainz D.O.
[2019-01-21 19:57] VITALS: RESP 20
[2019-01-21 20:08] LABS: CALCIUM 8.7 mg/dl (8.6-10.4)
[2019-01-21 20:19] LABS: CK-MB 1.49 ng/mL (0.0-3.38); TROPONIN I 0.028 ng/mL (0.00-0.120)
[2019-01-22 01:33] LABS: CK-MB 1.35 ng/mL (0.0-3.38); TROPONIN I 0.025 ng/mL (0.00-0.120)
[2019-01-22 06:54] LABS: BASO # 0.1 K/uL (0.0-0.2); BASO % 1.4 % (0.0-2.0); EOS # 0.4 K/uL (0.0-0.7); HEMOGLOBIN 10.9 g/dL (12.0-18.0); LYMPH # 1.1 K/uL (1.0-4.3); LYMPH % 21.9 % (20.0-40.0); MEAN CELL VOLUME 100.5 fL (80.0-94.0); MEAN CORPUSCULAR HGB CONC 32.9 g/dL (33.0-37.0); MEAN PLATELET VOLUME 9.7 fL (7.2-11.7); MONO # 0.5 K/uL (0.0-0.8); MONO % 9.3 % (0.0-10.0); NEUT % 60.4 % (50.0-75.0); RBC 3.31 Mil/uL (4.40-5.90)
--- NOTE | 2019-01-22 07:08 | CP.PCM.PN ---
Objective - Vital Signs/Intake and Output Vital Signs (last 24 hours): Temp Pulse Resp BP Pulse Ox 97.9 F 57 L 20 148/72 95 01/21/19 23:30 01/22/19 03:36 01/21/19 23:30 01/21/19 23:30 01/21/19 23:30 Intake and Output: 01/22/19 01/22/19 06:59 18:59 Intake Total 300 Output Total 250 Balance 50 - Medications Medications: Current Medications Metoprolol Tartrate (Lopressor) 50 mg PO Q12H [facility] Last Admin: 01/21/19 20:53 Dose: Not Given Rivaroxaban (Xarelto) 20 mg PO DAILY [facility] Last Admin: 01/21/19 20:54 Dose: 20 mg Sodium Chloride ([place] Baby Saline 30 Ml) 0 ml JOSE TID [facility] - Labs Labs: 01/22/19 06:48 01/21/19 19:49 PT 14.1 SECONDS (9.7-12.2) H 01/21/19 12:24 INR 1.3 01/21/19 12:24 APTT 38 SECONDS (21-34) H 01/21/19 12:24
[2019-01-22 07:18] LABS: ALB/GLOB RATIO 1.1 (1.0-2.1); ALBUMIN 3.2 g/dL (3.5-5.0); ALT/SGPT 36 U/L (21-72); AST/SGOT 58 U/L (17-59); BLOOD UREA NITROGEN 17 mg/dL (9-20); CALCIUM 8.5 mg/dl (8.6-10.4); GFR NON-AFRICAN AMERICAN 54
[2019-01-22] MEDS ORDERED: Potassium Chloride 20 mEq ER Tab PO ONE (07:22)
[2019-01-22 08:26] VITALS: TEMP 98.1; O2SAT 96
[2019-01-22 08:29] VITALS: BP 126/71; PULSE 59
--- NOTE | 2019-01-22 09:40 | CP.PCM.CON ---
History of Present Illness - History of Present Illness History of Present Illness: 73 yo old man with recurrent atrial flutter, s/p KADI cardioversion and then ablation, had a fast heart rate over 100 BPM on fri, that was off and on. Yesterday, pt had chest, neck tightness, got worried, came to ER, Tightness has continued until today, feels better when he moves. pain has been constant, but less severe today. Pt has no known CAD, Review of Systems - Review of Systems All systems: reviewed and no additional remarkable complaints except (as above otherwise negative) Past Patient History - Infectious Disease Hx of Infectious Diseases: None - Past Medical History & Family History Past Medical History?: Yes - Past Social History Smoking Status: Never Smoked - CARDIAC Hx Atrial Fibrillation: Yes Hx Cardia Arrhythmia: Yes Hx Congestive Heart Failure: Yes Hx Hypercholesterolemia: Yes Hx Hypertension: Yes - NEUROLOGICAL Hx Neurological Disorder: No - HEENT Hx HEENT Problems: No (DYSPHAGIA) - RENAL Hx Chronic Kidney Disease: No - ENDOCRINE/METABOLIC Hx Endocrine Disorders: No - HEMATOLOGICAL/ONCOLOGICAL Hx Blood Transfusions: No Hx Cancer: Yes (parotid cancer,) - INTEGUMENTARY Hx Dermatological Problems: Yes Hx Basil Cell: Yes Hx Squamous Cell: Yes Other/Comment: hx skin cancer unsure what type , multiple scabs noted on sc alp,scars noted l wrist ,Rhand. - MUSCULOSKELETAL/RHEUMATOLOGICAL Hx Arthritis: Yes - GASTROINTESTINAL Hx Gastrointestinal Disorders: Yes HX Swallowing Problems: Yes - GENITOURINARY/GYNECOLOGICAL Hx Genitourinary Disorders: Yes Hx Prostate Problems: Yes - PSYCHIATRIC Hx Substance Use: No - SURGICAL HISTORY Hx Coronary Stent: Yes - ANESTHESIA Hx Anesthesia: Yes Hx Anesthesia Reactions: No Meds Allergies/Adverse Reactions: Allergies Allergy/AdvReac Type Severity Reaction Status Date / Time No Known Allergies Allergy Verified 01/21/19 11:51 - Medications Medications: Current Medications Metoprolol Tartrate (Lopressor) 50 mg PO Q12H [facility] Last Admin: 01/22/19 08:29 Dose: Not Given Rivaroxaban (Xarelto) 20 mg PO DAILY [facility] Last Admin: 01/21/19 20:54 Dose: 20 mg Sodium Chloride ([place] Baby Saline 30 Ml) 0 ml JOSE TID [facility] Physical Exam - Constitutional Appears: Well - Head Exam Head Exam: ATRAUMATIC - Eye Exam Eye Exam: EOMI Pupil Exam: PERRL - ENT Exam ENT Exam: Mucous Membranes Moist - Neck Exam Neck exam: Positive for: Normal Inspection - Respiratory Exam Respiratory Exam: Clear to Auscultation Bilateral - Cardiovascular Exam Cardiovascular Exam: REGULAR RHYTHM - GI/Abdominal Exam GI & Abdominal Exam: Normal Bowel Sounds - Exam External exam: NORMAL EXTERNAL EXAM - Extremities Exam Extremities exam: Positive for: normal inspection - Back Exam Back exam: NORMAL INSPECTION - Neurological Exam Neurological exam: CN II-XII Intact, Normal Gait, Oriented x3 - Psychiatric Exam Psychiatric exam: Normal Affect, Normal Mood - Skin Skin Exam: Normal Color Results - Vital Signs Recent Vital Signs: Last Vital Signs Temp 98.1 F 01/22/19 07:00 Pulse 59 L 01/22/19 08:28 Resp 20 01/22/19 07:00 BP 126/71 01/22/19 08:28 Pulse Ox 96 01/22/19 07:00 - Labs Result Diagrams: 01/22/19 06:48 01/22/19 06:48 Labs: Laboratory Results - last 24 hr 01/21/19 01/21/19 01/21/19 11:58 12:24 12:24 WBC 4.1 L RBC 3.54 L Hgb 12.0 Hct 35.5 MCV 100.4 H MCH 33.8 H MCHC 33.7 RDW 14.2 Plt Count 137 MPV 10.4 Neut % (Auto) 61.0 Lymph % (Auto) 23.6 [place] % (Auto) 7.8 Eos % (Auto) 6.3 H Baso % (Auto) 1.3 Neut # (Auto) 2.5 Lymph # (Auto) 1.0 [place] # (Auto) 0.3 Eos # (Auto) 0.3 Baso # (Auto) 0.1 PT INR APTT Sodium 137 Potassium 2.9 L Chloride 102 Carbon Dioxide 29 Anion Gap 9 L BUN 18 Creatinine 1.4 Est GFR ( Amer) > 60 Est GFR (Non-Af Amer) 50 POC Glucose (mg/dL) 91 Random Glucose 84 Calcium 8.5 L Phosphorus Magnesium Total Bilirubin 0.9 AST 56 ALT 40 Alkaline Phosphatase 199 H Total Creatine Kinase 103 CK-MB (Mass) 1.67 Troponin I 0.0190 NT-Pro-B Natriuret Pep 119 Total Protein 6.8 Albumin 3.8 Globulin 3.0 Albumin/Globulin Ratio 1.3 Free T4 TSH 3rd Generation Urine Color Urine Clarity Urine pH Ur Specific [place] Urine Protein Urine Glucose (UA) Urine Ketones Urine Blood Urine Nitrate Urine Bilirubin Urine Urobilinogen Ur Leukocyte Esterase Urine WBC (Auto) Urine RBC (Auto) Ur Squamous Epith Cells 01/21/19 01/21/19 01/21/19 12:24 14:26 19:49 WBC RBC Hgb Hct MCV MCH MCHC RDW Plt Count MPV Neut % (Auto) Lymph % (Auto) [place] % (Auto) Eos % (Auto) Baso % (Auto) Neut # (Auto) Lymph # (Auto) [place] # (Auto) Eos # (Auto) Baso # (Auto) PT 14.1 H INR 1.3 APTT 38 H Sodium 139 Potassium 3.2 L Chloride 101 Carbon Dioxide 34 H Anion Gap 8 L BUN 17 Creatinine 1.6 H Est GFR ( Amer) 52 Est GFR (Non-Af Amer) 43 POC Glucose (mg/dL) Random Glucose 101 D Calcium 8.7 Phosphorus 3.0 Magnesium 1.9 Total Bilirubin AST ALT Alkaline Phosphatase Total Creatine Kinase 100 CK-MB (Mass) 1.49 Troponin I 0.0280 NT-Pro-B Natriuret Pep Total Protein Albumin Globulin Albumin/Globulin Ratio Free T4 TSH 3rd Generation 0.54 Urine Color Yellow Urine Clarity Hazy Urine pH 7.0 Ur Specific [place] 1.013 Urine Protein 2+ H Urine Glucose (UA) Normal Urine Ketones Negative Urine Blood Negative Urine Nitrate Negative Urine Bilirubin Negative Urine Urobilinogen Normal Ur Leukocyte Esterase Trace Urine WBC (Auto) 22 H Urine RBC (Auto) 1 Ur Squamous Epith Cells 1 01/21/19 01/22/19 01/22/19 19:49 00:29 06:48 WBC 5.0 RBC 3.31 L Hgb 10.9 L Hct 33.2 L MCV 100.5 H MCH 33.0 H MCHC 32.9 L RDW 14.0 Plt Count 118 L MPV 9.7 Neut % (Auto) 60.4 Lymph % (Auto) 21.9 [place] % (Auto) 9.3 Eos % (Auto) 7.0 H Baso % (Auto) 1.4 Neut # (Auto) 3.0 Lymph # (Auto) 1.1 [place] # (Auto) 0.5 Eos # (Auto) 0.4 Baso # (Auto) 0.1 PT INR APTT Sodium Potassium Chloride Carbon Dioxide Anion Gap BUN Creatinine Est GFR ( Amer) Est GFR (Non-Af Amer) POC Glucose (mg/dL) Random Glucose Calcium Phosphorus Magnesium Total Bilirubin AST ALT Alkaline Phosphatase Total Creatine Kinase 112 CK-MB (Mass) 1.35 Troponin I 0.0250 NT-Pro-B Natriuret Pep Total Protein Albumin Globulin Albumin/Globulin Ratio Free T4 1.65 TSH 3rd Generation Urine Color Urine Clarity Urine pH Ur Specific [place] Urine Protein Urine Glucose (UA) Urine Ketones Urine Blood Urine Nitrate Urine Bilirubin Urine Urobilinogen Ur Leukocyte Esterase Urine WBC (Auto) Urine RBC (Auto) Ur Squamous Epith Cells 01/22/19 06:48 WBC RBC Hgb Hct MCV MCH MCHC RDW Plt Count MPV Neut % (Auto) Lymph % (Auto) [place] % (Auto) Eos % (Auto) Baso % (Auto) Neut # (Auto) Lymph # (Auto) [place] # (Auto) Eos # (Auto) Baso # (Auto) PT INR APTT Sodium 137 Potassium 3.2 L Chloride 102 Carbon Dioxide 31 H Anion Gap 6 L BUN 17 Creatinine 1.3 Est GFR ( Amer) > 60 Est GFR (Non-Af Amer) 54 POC Glucose (mg/dL) Random Glucose 79 D Calcium 8.5 L Phosphorus 2.5 Magnesium 2.0 Total Bilirubin 0.6 AST 58 ALT 36 Alkaline Phosphatase 189 H Total Creatine Kinase CK-MB (Mass) Troponin I NT-Pro-B Natriuret Pep Total Protein 6.1 L Albumin 3.2 L Globulin 2.9 Albumin/Globulin Ratio 1.1 Free T4 TSH 3rd Generation Urine Color Urine Clarity Urine pH Ur Specific [place] Urine Protein Urine Glucose (UA) Urine Ketones Urine Blood Urine Nitrate Urine Bilirubin Urine Urobilinogen Ur Leukocyte Esterase Urine WBC (Auto) Urine RBC (Auto) Ur Squamous Epith Cells - EKG Data EKG Interpreted by: Myself EKG shows normal: Sinus rhythm (non specific changes, mild qt prlongation acceptable. ) Assessment & Plan - Assessment and Plan (Free Text) Assessment: 1. Neg tni and ecg, non anginal chest pain, no knwon CAD. 2. Pt had palpitations: he will resume home meds, including amio 200 qod and will have an event monitor for several weeks to address symptoms.
[2019-01-22] MEDS ORDERED: Sodium Chloride Nasal 0.65% Soln (30ml) NAS SCH (10:00)
--- NOTE | 2019-01-22 10:01 | CP.PCM.DIS ---
<Cole Goldstein - Last Filed: 01/22/19 16:02> Provider - Provider Date of Admission: 01/21/19 16:55 Attending physician: Alex Sainz MD Consults: 01/21/19 18:54 Cardiology Consult Routine Comment: spoke with Dr. Benitez who is aware of consult Consulting Provider: Shilo Benitez Consulting Physician: Shilo Benitez Reason for Consult: hx of paroxysmal atrial flutter 01/21/19 19:35 Podiatry Consult Routine Comment: podiatry resident has been informed Consulting Provider: Maritza West Consulting Physician: Maritza West Reason for Consult: nail maintenance Time Spent in preparation of Discharge (in minutes): 35 Diagnosis - Discharge Diagnosis (1) S/P ablation of atrial flutter Status: Chronic (2) Hypokalemia Status: Resolved (3) Skin lesion Status: Chronic (4) HTN (hypertension) Status: Chronic Comment: lipoma (5) Hyperlipidemia Status: Chronic Hospital Course - Lab Results Lab Results: Most Recent Lab Values WBC 5.0 K/uL (4.8-10.8) 01/22/19 06:48 RBC 3.31 Mil/uL (4.40-5.90) L 01/22/19 06:48 Hgb 10.9 g/dL (12.0-18.0) L 01/22/19 06:48 Hct 33.2 % (35.0-51.0) L 01/22/19 06:48 MCV 100.5 fL (80.0-94.0) H 01/22/19 06:48 MCH 33.0 pg (27.0-31.0) H 01/22/19 06:48 MCHC 32.9 g/dL (33.0-37.0) L 01/22/19 06:48 RDW 14.0 % (11.5-14.5) 01/22/19 06:48 Plt Count 118 K/uL (130-400) L 01/22/19 06:48 MPV 9.7 fL (7.2-11.7) 01/22/19 06:48 Neut % (Auto) 60.4 % (50.0-75.0) 01/22/19 06:48 Lymph % (Auto) 21.9 % (20.0-40.0) 01/22/19 06:48 Elliott % (Auto) 9.3 % (0.0-10.0) 01/22/19 06:48 Eos % (Auto) 7.0 % (0.0-4.0) H 01/22/19 06:48 Baso % (Auto) 1.4 % (0.0-2.0) 01/22/19 06:48 Neut # (Auto) 3.0 K/uL (1.8-7.0) 01/22/19 06:48 Lymph # (Auto) 1.1 K/uL (1.0-4.3) 01/22/19 06:48 Elliott # (Auto) 0.5 K/uL (0.0-0.8) 01/22/19 06:48 Eos # (Auto) 0.4 K/uL (0.0-0.7) 01/22/19 06:48 Baso # (Auto) 0.1 K/uL (0.0-0.2) 01/22/19 06:48 PT 14.1 SECONDS (9.7-12.2) H 01/21/19 12:24 INR 1.3 01/21/19 12:24 APTT 38 SECONDS (21-34) H 01/21/19 12:24 Sodium 137 mmol/L (132-148) 01/22/19 06:48 Potassium 3.2 mmol/L (3.6-5.2) L 01/22/19 06:48 Chloride 102 mmol/L (98-107) 01/22/19 06:48 Carbon Dioxide 31 mmol/L (22-30) H 01/22/19 06:48 Anion Gap 6 (10-20) L 01/22/19 06:48 BUN 17 mg/dL (9-20) 01/22/19 06:48 Creatinine 1.3 mg/dL (0.8-1.5) 01/22/19 06:48 Est GFR ( Amer) > 60 01/22/19 06:48 Est GFR (Non-Af Amer) 54 01/22/19 06:48 POC Glucose (mg/dL) 91 mg/dL (65-110) 01/21/19 11:58 Random Glucose 79 mg/dL (75-110) D 01/22/19 06:48 Calcium 8.5 mg/dl (8.6-10.4) L 01/22/19 06:48 Phosphorus 2.5 mg/dL (2.5-4.5) 01/22/19 06:48 Magnesium 2.0 mg/dL (1.6-2.3) 01/22/19 06:48 Total Bilirubin 0.6 mg/dL (0.2-1.3) 01/22/19 06:48 AST 58 U/L (17-59) 01/22/19 06:48 ALT 36 U/L (21-72) 01/22/19 06:48 Alkaline Phosphatase 189 U/L (38-126) H 01/22/19 06:48 Total Creatine Kinase 112 U/L (55-170) 01/22/19 00:29 CK-MB (Mass) 1.35 ng/mL (0.0-3.38) 01/22/19 00:29 Troponin I 0.0250 ng/mL (0.00-0.120) 01/22/19 00:29 NT-Pro-B Natriuret Pep 119 pg/mL (0-900) 01/21/19 12:24 Total Protein 6.1 g/dL (6.3-8.3) L 01/22/19 06:48 Albumin 3.2 g/dL (3.5-5.0) L 01/22/19 06:48 Globulin 2.9 gm/dL (2.2-3.9) 01/22/19 06:48 Albumin/Globulin Ratio 1.1 (1.0-2.1) 01/22/19 06:48 Free T4 1.65 ng/dL (0.78-2.19) 01/21/19 19:49 TSH 3rd Generation 0.54 mIU/L (0.46-4.68) 01/21/19 19:49 Urine Color Yellow (YELLOW) 01/21/19 14:26 Urine Clarity Hazy (Clear) 01/21/19 14:26 Urine pH 7.0 (5.0-8.0) 01/21/19 14:26 Ur Specific [place] 1.013 (1.003-1.030) 01/21/19 14:26 Urine Protein 2+ mg/dL (NEGATIVE) H 01/21/19 14:26 Urine Glucose (UA) Normal mg/dL (Normal) 01/21/19 14:26 Urine Ketones Negative mg/dL (NEGATIVE) 01/21/19 14:26 Urine Blood Negative (NEGATIVE) 01/21/19 14:26 Urine Nitrate Negative (NEGATIVE) 01/21/19 14:26 Urine Bilirubin Negative (NEGATIVE) 01/21/19 14:26 Urine Urobilinogen Normal mg/dL (0.2-1.0) 01/21/19 14:26 Ur Leukocyte Esterase Trace Macey/uL (Negative) 01/21/19 14:26 Urine WBC (Auto) 22 /hpf (0-5) H 01/21/19 14:26 Urine RBC (Auto) 1 /hpf (0-3) 01/21/19 14:26 Ur Squamous Epith Cells 1 /hpf (0-5) 01/21/19 14:26 - Hospital Course Hospital Course: On admission: Code Status: DNR/DNI POA: Heidi Stein (sister) #[phone] 73 year old male with past medical history of atrial flutter, HTN, HLD and neck spasm presents to the ER for chest pressure. Patient states he started to have chest pressure yesterday at 1AM which woke him up from his sleep. He states at that moment he didn't want to go to the ER. Patient states overnight his pain was at an 7-8/10. He states the pain was located across his chest and was constant. He states the pain is currently a 2/10. Patient also states he has some "achy" feeling between his shoulder blades which is about 1/10. Patient states what prompted him to come to the ER today was that he measured his heart rate and it was about 115bpm and that made him nervous for it to be above 100. Also he continues to have tingling feeling in his fingers which have been on going from November. Patient denies shortness of breath, abdominal pain, dizziness, lightheadedness, nausea, vomiting, diarrhea, constipation, fever or dysuria. Hospital course: Placed on Tele monitor. BNP was normal. Troponin x3, with EKGs, was negative. Pt was started on home medications. Pts neck stiffness was treated with myofascial OMM, with some improvement of symptoms. Cardiology, Dr. Benitez, consulted. Pt has no history of CAD as per Dr. Benitez. BP was controlled with Amlodipine. As per Dr. Benitez, he will resume home meds, including amio 200 qod and will have an event monitor for several weeks. Pt's ingrown toe nails were treated by Podiatry prior to discharge. On discharge interview, pt has no complaints. He denies chest pain, sob, palpitations, headache, dizziness, abd ominal pain, n/v/d, lightheadedness. Images: Chest Xray: persistent slight elevation right hemidiaphragm likely due to eventration. Suspect mild compressive type atelectasis right lung base. Minor linear atelectasis and or scarring changes left lung Please provide patient with the following instructions upon discharge: 1). You and your sister stated that you had enough of your home medications. Please confirm the following medication list and if you do not have these medications at home, please notify your Pension Fund Manager Dr. Solomon or your Primary Care Physician Dr. Caty Sainz: HCTZ 12.5 mg, 1 tablet by mouth 1x/day (8 AM) Amiodarone 200 mg, 1 tablet by mouth every other day at 8 AM Lisinopril 10 mg, 1 tablet by mouth 1x/day (2 PM) Amlodipine 10 mg, 1 tablet by mouth 1x/day (2 PM) Carvedilol 12.5 mg, 1 tablet by mouth 2x/day (8 AM and 8 PM) Atorvastatin 10 mg, 1 tablet by mouth 1x/day (8 AM) Rivaroxaban 15 mg, 1 tablet by mouth 1x/day, (8 AM) Tamsulosin 0.4 mg, 1 tablet by mouth 1x/day (8 AM) Aspirin 81 mg, 1 tablet by mouth 1x/day (8 AM) 2). Please schedule follow up with your primary care physician Dr. Caty Sainz in the next 7 to 10 days. 3). Your custom dressmaker has arranged for a home event monitor to be delivered to your house as I have informed you and your sister. If you require assistance with using this once it is delivered please call your custom dressmaker Dr. Solomon's office. 4). Please continue to follow the stretching and exercise recommendations of your home visiting physical therapist for your chest and back. 5). Please take care and be well. Alex Sainz D.O. Discharge Exam - Additional Findings Additional findings: - Constitutional Appears: No Acute Distress - Head Exam Additional comments: scalp masses (lipomas) located in the posterior right/lateral occipital soft 11 1/2 cm x 7 1/2 cm; and left parietal - soft. Nontender, mildly erythematous. - Eye Exam Eye Exam: EOMI, Normal appearance, PERRL Pupil Exam: NORMAL ACCOMODATION - ENT Exam ENT Exam: Mucous Membranes Moist - Neck Exam Neck exam: Negative for: Tenderness, Thyromegaly - Respiratory Exam Respiratory Exam: Clear to Auscultation Bilateral, NORMAL BREATHING PATTERN, Negative: rales, rhonchi, rales. - Cardiovascular Exam Cardiovascular Exam: REGULAR RHYTHM, +S1, +S2, no murmur - GI/Abdominal Exam GI & Abdominal Exam: Normal Bowel Sounds, Soft. absent: Tenderness - Extremities Exam Extremities exam: Positive for: normal inspection - Neurological Exam Neurological exam: Alert, Oriented x3 - Psychiatric Exam Psychiatric exam: Normal Affect, Normal Mood Discharge Plan - Follow Up Plan Condition: GOOD Disposition: HOME/ ROUTINE Instructions: Heart Healthy Diet, Hypokalemia (DC), Chest Pain (DC) Additional Instructions: Please provide patient with the following instructions upon discharge: 1). You and your sister stated that you had enough of your home medications. Please confirm the following medication list and if you do not have these medications at home, please notify your Pension Fund Manager Dr. Solomon or your Primary Care Physician Dr. Caty Sainz: HCTZ 12.5 mg, 1 tablet by mouth 1x/day (8 AM) Amiodarone 200 mg, 1 tablet by mouth every other day at 8 AM Lisinopril 10 mg, 1 tablet by mouth 1x/day (2 PM) Amlodipine 10 mg, 1 tablet by mouth 1x/day (2 PM) Carvedilol 12.5 mg, 1 tablet by mouth 2x/day (8 AM and 8 PM) Atorvastatin 10 mg, 1 tablet by mouth 1x/day (8 AM) Rivaroxaban 15 mg, 1 tablet by mouth 1x/day, (8 AM) Tamsulosin 0.4 mg, 1 tablet by mouth 1x/day (8 AM) Aspirin 81 mg, 1 tablet by mouth 1x/day (8 AM) 2). Please schedule follow up with your primary care physician Dr. Caty Sainz in the next 7 to 10 days. 3). Your custom dressmaker has arranged for a home event monitor to be delivered to your house as I have informed you and your sister. If you require assistance with using this once it is delivered please call your custom dressmaker Dr. Solomon's office. 4). Please continue to follow the stretching and exercise recommendations of your home visiting physical therapist for your chest and back. 5). Please take care and be well. Alex Sainz D.O. Referrals: Nael Solomon MD [Staff Provider] - <Alex Sainz - Last Filed: 01/22/19 19:20> Provider - Provider Date of Admission: 01/21/19 16:55 Attending physician: Alex Sainz MD Consults: 01/21/19 18:54 Cardiology Consult Routine Comment: spoke with Dr. Benitez who is aware of consult Consulting Provider: Shilo Benitez Consulting Physician: Shilo Benitez Reason for Consult: hx of paroxysmal atrial flutter 01/21/19 19:35 Podiatry Consult Routine Comment: podiatry resident has been informed Consulting Provider: Maritza West Consulting Physician: Maritza West Reason for Consult: [facility] Hospital Course - Lab Results Lab Results: Most Recent Lab Values WBC 5.0 K/uL (4.8-10.8) 01/22/19 06:48 RBC 3.31 Mil/uL (4.40-5.90) L 01/22/19 06:48 Hgb 10.9 g/dL (12.0-18.0) L 01/22/19 06:48 Hct 33.2 % (35.0-51.0) L 01/22/19 06:48 MCV 100.5 fL (80.0-94.0) H 01/22/19 06:48 MCH 33.0 pg (27.0-31.0) H 01/22/19 06:48 MCHC 32.9 g/dL (33.0-37.0) L 01/22/19 06:48 RDW 14.0 % (11.5-14.5) 01/22/19 06:48 Plt Count 118 K/uL (130-400) L 01/22/19 06:48 MPV 9.7 fL (7.2-11.7) 01/22/19 06:48 Neut % (Auto) 60.4 % (50.0-75.0) 01/22/19 06:48 Lymph % (Auto) 21.9 % (20.0-40.0) 01/22/19 06:48 Elliott % (Auto) 9.3 % (0.0-10.0) 01/22/19 06:48 Eos % (Auto) 7.0 % (0.0-4.0) H 01/22/19 06:48 Baso % (Auto) 1.4 % (0.0-2.0) 01/22/19 06:48 Neut # (Auto) 3.0 K/uL (1.8-7.0) 01/22/19 06:48 Lymph # (Auto) 1.1 K/uL (1.0-4.3) 01/22/19 06:48 Elliott # (Auto) 0.5 K/uL (0.0-0.8) 01/22/19 06:48 Eos # (Auto) 0.4 K/uL (0.0-0.7) 01/22/19 06:48 Baso # (Auto) 0.1 K/uL (0.0-0.2) 01/22/19 06:48 PT 14.1 SECONDS (9.7-12.2) H 01/21/19 12:24 INR 1.3 01/21/19 12:24 APTT 38 SECONDS (21-34) H 01/21/19 12:24 Sodium 137 mmol/L (132-148) 01/22/19 06:48 Potassium 3.2 mmol/L (3.6-5.2) L 01/22/19 06:48 Chloride 102 mmol/L (98-107) 01/22/19 06:48 Carbon Dioxide 31 mmol/L (22-30) H 01/22/19 06:48 Anion Gap 6 (10-20) L 01/22/19 06:48 BUN 17 mg/dL (9-20) 01/22/19 06:48 Creatinine 1.3 mg/dL (0.8-1.5) 01/22/19 06:48 Est GFR ( Amer) > 60 01/22/19 06:48 Est GFR (Non-Af Amer) 54 01/22/19 06:48 POC Glucose (mg/dL) 91 mg/dL (65-110) 01/21/19 11:58 Random Glucose 79 mg/dL (75-110) D 01/22/19 06:48 Calcium 8.5 mg/dl (8.6-10.4) L 01/22/19 06:48 Phosphorus 2.5 mg/dL (2.5-4.5) 01/22/19 06:48 Magnesium 2.0 mg/dL (1.6-2.3) 01/22/19 06:48 Total Bilirubin 0.6 mg/dL (0.2-1.3) 01/22/19 06:48 AST 58 U/L (17-59) 01/22/19 06:48 ALT 36 U/L (21-72) 01/22/19 06:48 Alkaline Phosphatase 189 U/L (38-126) H 01/22/19 06:48 Total Creatine Kinase 112 U/L (55-170) 01/22/19 00:29 CK-MB (Mass) 1.35 ng/mL (0.0-3.38) 01/22/19 00:29 Troponin I 0.0250 ng/mL (0.00-0.120) 01/22/19 00:29 NT-Pro-B Natriuret Pep 119 pg/mL (0-900) 01/21/19 12:24 Total Protein 6.1 g/dL (6.3-8.3) L 01/22/19 06:48 Albumin 3.2 g/dL (3.5-5.0) L 01/22/19 06:48 Globulin 2.9 gm/dL (2.2-3.9) 01/22/19 06:48 Albumin/Globulin Ratio 1.1 (1.0-2.1) 01/22/19 06:48 Free T4 1.65 ng/dL (0.78-2.19) 01/21/19 19:49 TSH 3rd Generation 0.54 mIU/L (0.46-4.68) 01/21/19 19:49 Urine Color Yellow (YELLOW) 01/21/19 14:26 Urine Clarity Hazy (Clear) 01/21/19 14:26 Urine pH 7.0 (5.0-8.0) 01/21/19 14:26 Ur Specific [place] 1.013 (1.003-1.030) 01/21/19 14:26 Urine Protein 2+ mg/dL (NEGATIVE) H 01/21/19 14:26 Urine Glucose (UA) Normal mg/dL (Normal) 01/21/19 14:26 Urine Ketones Negative mg/dL (NEGATIVE) 01/21/19 14:26 Urine Blood Negative (NEGATIVE) 01/21/19 14:26 Urine Nitrate Negative (NEGATIVE) 01/21/19 14:26 Urine Bilirubin Negative (NEGATIVE) 01/21/19 14:26 Urine Urobilinogen Normal mg/dL (0.2-1.0) 01/21/19 14:26 Ur Leukocyte Esterase Trace Macey/uL (Negative) 01/21/19 14:26 Urine WBC (Auto) 22 /hpf (0-5) H 01/21/19 14:26 Urine RBC (Auto) 1 /hpf (0-3) 01/21/19 14:26 Ur Squamous Epith Cells 1 /hpf (0-5) 01/21/19 14:26 Attending/Attestation - Attestation I have personally seen and examined this patient.: Yes I have fully participated in the care of the patient.: Yes I have reviewed all pertinent clinical information, including history, physical exam and plan: Yes Notes (Text): 01/22/19 19:20 This is a late entry. Care of this patient was gone over in detail with resident Dr. Goldstein. Alex Sainz D.O.
--- NOTE | 2019-01-23 08:04 | CARD ---
APPROVED REPORT Date of service: 01/21/2019 EKG Measurement Heart [id number] [place] [id number] <Conclusion> Sinus rhythm with premature atrial complexes Left axis deviation Inferior infarct, age undetermined Abnormal ECG
--- NOTE | 2019-01-23 08:18 | CARD ---
APPROVED REPORT Date of service: 01/21/2019 EKG Measurement Heart [id number] [place] [id number] <Conclusion> Normal sinus rhythm Left axis deviation Moderate voltage criteria for LVH, may be normal variant Inferior infarct, age undetermined Abnormal ECG
--- NOTE | 2019-01-23 16:48 | CARD ---
APPROVED REPORT Date of service: 01/22/2019 EKG Measurement Heart [id number] MD [id number] <Conclusion> Normal sinus rhythm Nonspecific ST abnormality Prolonged QT Abnormal ECG
== END 2019-01-22 12:59 | disposition home or self-care (01) ==
LOC: C.ER 11:28 → C.9E 16:55 → C.6T 17:22 → C.9E 17:44 → C.6T 17:51
PROVIDERS: ADMIT Family Medicine; ATTEND Family Medicine
DX: I48.92 Unspecified atrial flutter (principal); E87.6 Hypokalemia; I11.0 Hypertensive heart disease with heart failure; D17.9 Benign lipomatous neoplasm, unspecified; E78.5 Hyperlipidemia, unspecified; I50.9 Heart failure, unspecified; E78.00 Pure hypercholesterolemia, unspecified; L60.0 Ingrowing nail; M43.6 Torticollis; N40.0 Benign prostatic hyperplasia without lower urinary tract symptoms; Z66 Do not resuscitate; Z85.818 Personal history of malignant neoplasm of other sites of lip, oral cavity, and pharynx; Z85.828 Personal history of other malignant neoplasm of skin
CPT/HCPCS: 36415; 71045; 80048; 80053; 81001; 82550; 82553; 82948; 83735; 83880; 84100; 84439; 84443; 84484; 85025; 85610; 85730; 93005; 97116; 97162; 97165; 97530; 99285; G0378; G8978; G8979; G8987; G8988; G8989